=== PATIENT | male | born 1955 | race African-American/Black ===

== ENCOUNTER 2018-03-21 09:52 | Emergency (ER) | payer OTHER ==
[2018-03-21] MEDS ORDERED: ALBUTEROL 2.5 MG/3 ML NEB SOL ONE (10:40)
--- NOTE | 2018-03-21 11:12 | RAD REPORT ---
EXAM DESCRIPTION: RAD - Chest Pa And Lat (2 Views) - 03/21/2018 11:02 am CLINICAL HISTORY: Cough x2 weeks COMPARISON: 10/06/2017, 03/05/2017 FINDINGS: The lungs are mildly emphysematous but clear. The heart is normal in size. No displaced fr actures. Small hiatal hernia. IMPRESSION: Mild COPD.
[2018-03-21] MEDS ORDERED: AZITHROMYCIN 250 MG TAB ONE (12:00)
[2018-03-21] MEDS ORDERED: CEFTRIAXONE 1000 MG/VIAL ONE (12:00)
--- NOTE | 2018-03-21 12:00 | ER ---
Nurse's Notes [facility] Name: Kyaw Gay Jr Age: 62 yrs Sex: Male : 1955 Arrival Date: 03/21/2018 Time: 09:57 Bed 20 Private MD: Wendy Weinstein Diagnosis: Acute upper respiratory infection, unspecified Presentation: 03/21 10:00 Presenting complaint: Patient states: cough for 2 weeks, non-productive. reports la1 intermittent chills. Transition of care: patient was not received from another setting of care. Onset of symptoms was March 21, 2018. Initial Sepsis Screen: Does the patient meet any 2 criteria? No. Patient's initial sepsis screen is negative. Does the patient have a suspected source of infection? No. Patient's initial sepsis screen is negative. Care prior to arrival: None. 10:00 Method Of Arrival: Ambulatory la1 10:00 Acuity: ADOLFO 3 la1 Historical: - Allergies: 10:01 No Known Allergies; la1 - PMHx: 10:01 Cancer; Hepatitis; HIV; Hypertension; la1 - Immunization history:: Adult Immunizations up to date. - Social history:: Smoking status: Patient/guardian denies using tobacco. Screenin:18 Abuse screen: Denies threats or abuse. Nutritional screening: No deficits noted. em Tuberculosis screening: No symptoms or risk factors identified. Fall Risk None identified. Assessment: 10:41 General: Appears in no apparent distress. uncomfortable, Behavior is calm, cooperative, em Reports non productive cough for 2 weeks, denies fever, N/V/D. Pain: Denies pain. Neuro: Level of Consciousness is awake, alert, obeys commands, Oriented to person, place, time, situation. Cardiovascular: Capillary refill < 3 seconds Patient's skin is warm and dry. Respiratory: Airway is patent Respiratory effort is even, unlabored, Respiratory pattern is Breath sounds are clear bilaterally. GI: Abdomen is round. : No signs and/or symptoms were reported regarding the genitourinary system. EENT: No signs and/or symptoms were reported regarding the EENT system. Derm: Skin is intact, Skin is pink, warm \T\ dry. Musculoskeletal: Range of motion: intact in all extremities. 10:55 Reassessment: Patient appears in no apparent distress at this time. No changes from iw previously documented assessment. I agree with above assessment by Hitesh Simpson LVN. 11:00 Reassessment: Patient appears in no apparent distress at this time. Patient and/or em family updated on plan of care and expected duration. Pain level reassessed. Patient is alert, oriented x 3, equal unlabored respirations, skin warm/dry/pink. 12:15 Reassessment: Patient appears in no apparent distress at this time. Patient and/or em family updated on plan of care and expected duration. Pain level reassessed. Patient is alert, oriented x 3, equal unlabored respirations, skin warm/dry/pink. Patient states feeling better. Patient states symptoms have improved. Vital Signs: 10:01 BP 115 / 74; Pulse 89; Resp 20; Temp 98.9(O); Pulse Ox 98% on R/A; Weight 104.33 kg; la1 Height 6 ft. 0 in. (182.88 cm); 11:00 BP 127 / 81; Pulse 77; Resp 20; Pulse Ox 99% on R/A; em 12:15 BP 133 / 84; Pulse 74; Resp 18; Temp 97.9(O); Pulse Ox 96% on R/A; Pain 0/10; em 10:01 Body Mass Index 31.19 (104.33 kg, 182.88 cm) la1 ED Course: 09:57 Patient arrived in ED. mr 09:57 Wendy Weinstein MD is Private Physician. mr 10:01 Triage completed. la1 10:01 Arm band placed on left wrist. la1 10:24 Vitaliy He PA is PHCP. cp 10:24 Vitaliy Travis MD is Attending Physician. cp 10:26 Hitesh Simpson LVN is Primary Nurse. em 10:59 X-ray completed. Patient tolerated procedure well. kp1 11:00 XRAY Chest Pa And Lat (2 Views) In Process Unspecified. EDMS 11:18 No provider procedures requiring assistance completed. em 11:19 Patient has correct armband on for positive identification. Bed in low position. Call em light in reach. Side rails up X2. 12:16 Patient did not have IV access during this emergency room visit. em Administered Medications: 10:40 Drug: Albuterol 2.5 mg Route: Inhalation; em 11:00 Follow up: Response: No adverse reaction em 12:05 Drug: Rocephin (cefTRIAXone) 1 grams Route: IM; Site: left gluteus; em 12:18 Follow up: Response: No adverse reaction em 12:05 Drug: Zithromax 500 mg Route: PO; em 12:18 Follow up: Response: No adverse reaction em Outcome: 12:00 Discharge ordered by . jeffery 12:16 Discharged to home ambulatory. em 12:16 Condition: good 12:16 Discharge instructions given to patient, Instructed on discharge instructions, follow up and referral plans. medication usage, Demonstrated understanding of instructions, follow-up care, medications, Prescriptions given X 4. 12:19 Patient left the ED. em Signatures: Dispatcher [employer] Sylvia Cates, Hitesh, AUTOMOTIVE DETAILER AUTOMOTIVE DETAILER em Karie Garcia RN RN Ezequiel Robles RN RN la1 Vitaliy He, MADONNA PA Crystal Waters kp1
--- NOTE | 2018-03-21 12:00 | EDPHYS ---
Physician Documentation [facility] Name: Kyaw Gay Jr Age: 62 yrs Sex: Male : 1955 Arrival Date: 03/21/2018 Time: 09:57 Bed 20 Private MD: Wendy Weinstein ED Physician Vitaliy Travis HPI: 03/21 10:45 This 62 yrs old Black Male presents to ER via Ambulatory with complaints of Cough. cp 10:45 The patient or guardian reports cough, that is intermittent. Onset: The cp symptoms/episode began/occurred 2 week(s) ago. 10:45 Severity of symptoms: in the emergency department the symptoms are unchanged, despite cp home interventions. 10:45 Associated signs and symptoms: Pertinent positives: sore throat, Pertinent negatives: cp chest pain, diarrhea, ear ache, fever, vomiting. Historical: - Allergies: 10: No Known Allergies; la1 - PMHx: 10:01 Cancer; Hepatitis; HIV; Hypertension; la1 - Immunization history:: Adult Immunizations up to date. - Social history:: Smoking status: Patient/guardian denies using tobacco. ROS: 11:00 Constitutional: Negative for body aches, chills, fever, poor PO intake. cp 11:00 Eyes: Negative for injury, pain, redness, and discharge. cp 11:00 ENT: Positive for sore throat, Negative for drainage from ear(s), ear pain, difficulty cp swallowing, difficulty handling secretions. 11:00 Cardiovascular: Negative for chest pain, edema, palpitations. cp 11:00 Respiratory: Positive for cough, "sounds productive", Negative for shortness of breath, wheezing. 11:00 Abdomen/GI: Negative for abdominal pain, nausea, vomiting, and diarrhea, black/tarry stool, rectal bleeding. 11:00 Back: Negative for radiated pain. 11:00 Neuro: Negative for altered mental status, headache, weakness. 11:00 All other systems are negative. Exam: 11:05 Constitutional: The patient appears in no acute distress, alert, awake, cp non-diaphoretic, non-toxic, well developed, well nourished. 11:05 Head/Face: Normocephalic, atraumatic. cp 11:05 Eyes: Periorbital structures: appear normal, Conjunctiva: normal, no exudate, no cp injection, Sclera: no appreciated abnormality, Lids and lashes: appear normal, bilaterally. 11:05 ENT: External ear(s): are unremarkable, Ear canal(s): are normal, clear, TM's: bulging, is not appreciated, bilaterally, dullness, bilaterally, erythema, is not appreciated, bilaterally, Nose: is normal, Mouth: is normal, Posterior pharynx: Airway: no evidence of obstruction, patent, Tonsils: are normal in appearance, Uvula: midline, swelling, is not appreciated, erythema, that is mild, exudate, is not appreciated. 11:05 Neck: ROM/movement: is normal, is supple, without pain, no range of motions limitations, no meningismus, no nuchal rigidity, Lymph nodes: no appreciated lymphadenopathy. 11:05 Chest/axilla: Inspection: normal, Palpation: is normal, no crepitus, no tenderness. 11:05 Cardiovascular: Rate: normal, Rhythm: regular. 11:05 Respiratory: the patient does not display signs of respiratory distress, Respirations: normal, no use of accessory muscles, no retractions, no splinting, no tachypnea, labored breathing, is not present, Breath sounds: bronchial sounds, that are mild, are heard diffusely, decreased breath sounds, are not appreciated, + upper airway congestion. wheezing: is not appreciated. 11:05 Abdomen/GI: Inspection: abdomen appears normal, Palpation: abdomen is soft and non-tender, in all quadrants. 11:05 Back: pain, is absent, ROM is normal. 11:05 Skin: cellulitis, is not appreciated, no rash present. 11:05 Neuro: Orientation: to person, place \\T\\ time. Mentation: lucid, able to follow commands, Cerebellar function: is grossly normal, Motor: moves all fours, strength is normal, Sensation: no obvious gross deficits. Vital Signs: 10:01 BP 115 / 74; Pulse 89; Resp 20; Temp 98.9(O); Pulse Ox 98% on R/A; Weight 104.33 kg; la1 Height 6 ft. 0 in. (182.88 cm); 11:00 BP 127 / 81; Pulse 77; Resp 20; Pulse Ox 99% on R/A; em 12:15 BP 133 / 84; Pulse 74; Resp 18; Temp 97.9(O); Pulse Ox 96% on R/A; Pain 0/10; em 10:01 Body Mass Index 31.19 (104.33 kg, 182.88 cm) la1 MDM: 10:24 Patient medically screened. cp 11:00 Differential Diagnosis: Bronchitis Influenza Sinusitis Pharyngitis Otitis Media cp Pneumonia. 11:55 Data reviewed: vital signs, nurses notes, lab test result(s), radiologic studies, plain cp films. 11:55 Test interpretation: by ED physician or midlevel provider: plain radiologic studies. cp Counseling: I had a detailed discussion with the patient and/or guardian regarding: the historical points, exam findings, and any diagnostic results supporting the discharge/admit diagnosis, lab results, radiology results, the need for outpatient follow up, a family practitioner, to return to the emergency department if symptoms worsen or persist or if there are any questions or concerns that arise at home. 03/21 10:37 Order name: Influenza Screen (a \\T\\ B); Complete Time: 11:46 03/21 11:47 Interpretation: Reviewed. 03/21 10:37 Order name: Strep; Complete Time: 11:46 03/21 11:47 Interpretation: Reviewed. 03/21 10:37 Order name: XRAY Chest Pa And Lat (2 Views); Complete Time: 11:24 03/21 11:24 Interpretation: Report reviewed. 03/21 11:28 Order name: Throat Culture EDMS Administered Medications: 10:40 Drug: Albuterol 2.5 mg Route: Inhalation; em 11:00 Follow up: Response: No adverse reaction em 12:05 Drug: Rocephin (cefTRIAXone) 1 grams Route: IM; Site: left gluteus; em 12:18 Follow up: Response: No adverse reaction em 12:05 Drug: Zithromax 500 mg Route: PO; em 12:18 Follow up: Response: No adverse reaction em Disposition: 03/21/18 12:00 Discharged to Home. Impression: Acute upper respiratory infection, unspecified. - Condition is Stable. - Discharge Instructions: Upper Respiratory Infection, Adult. - Prescriptions for Tessalon Perles 100 mg Oral Capsule - take 1 capsule by ORAL route every 8 hours As needed; 15 capsule. Zithromax Z- Dk 250 mg Oral Tablet - take 1 tablet by ORAL route as directed for 5 days Day 1 - take two (2) tablets one time. Day 2, 3, 4 , 5 take one (1) tablet once daily.; 6 tablet. Prednisone 20 mg Oral Tablet - take 2 tablet by ORAL route once daily for 5 days; 10 tablet. Albuterol Sulfate 90 mcg/actuation - inhale 1-2 puff by INHALATION route every 4-6 hours; 1 Inhaler. - Medication Reconciliation Form, Thank You Letter, Antibiotic Education, Prescription Opioid Use form. - Follow up: Private Physician; When: 2 - 3 days; Reason: Recheck today's complaints. - Problem is new. - Symptoms have improved. Addendum: 03/23/2018 08:52 Co-signature as Attending Physician, Vitaliy Travis MD I agree with the assessment and c yang plan of care. Signatures: Dispatcher [employer] Vitaliy Cuellar MD MD cha Munoz, Edgar, SALES AND SERVICE CHANGE LEADER SALES AND SERVICE CHANGE LEADER Ezequiel Charles RN RN la1 Vitaliy He, PA PA cp Corrections: (The following items were deleted from the chart) 03/22 09:23 09:18 ENT: Positive for sore throat, Negative for drainage from ear(s), ear pain, cp difficulty swallowing, difficulty handling secretions, cp 09: 09:18 Cardiovascular: Negative for chest pain, edema, palpitations, cp cp 09: 09:18 Neck: Negative for pain with movement, pain at rest, stiffness, tenderness, cp cp 09:23 09:18 Respiratory: Positive for cough, "sounds productive", Negative for wheezing, cp cp 09:23 09:18 Abdomen/GI: Negative for abdominal pain, nausea, vomiting, and diarrhea, cp black/tarry stool, rectal bleeding, cp 09:23 09:18 Back: Negative for pain at rest, pain with movement, radiated pain, cp cp 09:23 09:18 Skin: Negative for cellulitis, rash, cp cp :23 09:18 Neuro: Negative for altered mental status, headache, weakness, cp cp : 09:18 All other systems are negative, cp cp
[2018-03-21 12:25] VITALS: BP 133/84; TEMP 97.9; O2SAT 96
== END 2018-03-21 12:19 | disposition home or self-care (01) ==
LOC: ER 09:52
DX: J06.9 Acute upper respiratory infection, unspecified (principal); I10 Essential (primary) hypertension; Z21 Asymptomatic human immunodeficiency virus [HIV] infection status
CPT/HCPCS: 71046; 87070; 87081; 87804; 96372; 99284

== ENCOUNTER 2019-03-27 09:06 | Emergency (ER) | payer OTHER ==
[2019-03-27 09:56] LABS: Absolute Lymphocytes (CBC) 0.8 K/uL (0.7-4.9); Absolute Monocytes 0.5 K/uL (0.1-1.3); Absolute Neutrophil 3.3 K/uL (1.8-8.0); Basophils % 0.4 % (0-1.3); Eosinophils % 1.2 % (0-4.4); Hematocrit 37.7 % (39.6-49.0); Lymphocytes % 17.3 % (15.3-44.8); Monocytes % 10.8 % (3.3-12.3); Protime INR 1.09; RBC Red Blood Cell Count 4.17 M/uL (4.33-5.43)
[2019-03-27 10:02] LABS: ALT/SGPT 24 U/L (12-78); AST/SGOT 18 U/L (15-37); Albumin 3.5 g/dL (3.4-5.0); Alkaline Phosphatase 98 U/L (45-117); BUN Blood Urea Nitrogen 19 mg/dL (7-18); Bicarbonate 27 mmol/L (21-32); Bilirubin Total 0.3 mg/dL (0.2-1.0); Glucose Level 94 mg/dL (74-106); Magnesium 2.5 mg/dL (1.8-2.4); NT PRO-BNP 93 pg/mL (<125); Potassium 4.6 mmol/L (3.5-5.1); Protein, Total 9.1 g/dL (6.4-8.2); Sodium Level 144 mmol/L (136-145); Troponin (Emerg Dept Use Only) < 0.02 ng/mL (0.0-0.045)
--- NOTE | 2019-03-27 10:16 | RAD REPORT ---
EXAM DESCRIPTION: Perez Single View03/27/2019 9:45 am CLINICAL HISTORY: Chest pain COMPARISON: February 2018 FINDINGS: Left base is hazy. Right lung appears clear. Heart is normal size IMPRESSION: Left base is hazy suspicious for pneumonia
--- NOTE | 2019-03-27 11:06 | ER ---
Nurse's Notes [facility] Name: Kyaw Gay Jr Age: 63 yrs Sex: Male : 1955 Arrival Date: 03/27/2019 Time: 09:08 Bed 13 Private MD: None, None Diagnosis: Pneumonia due to other infectious organisms, not elsewhere classified;Other chest pain Presentation: 03/27 09:12 Presenting complaint: Patient states: chest pain, cough, and abd pain that began 2 days aa5 ago. Pt denies nausea/vomiting/diarrhea. 09:12 Transition of care: patient was not received from another setting of care. Onset of aa5 symptoms was March 2019. Risk Assessment: Do you want to hurt yourself or someone else? Patient reports no desire to harm self or others. Initial Sepsis Screen: Does the patient meet any 2 criteria? No. Patient's initial sepsis screen is negative. Does the patient have a suspected source of infection? No. Patient's initial sepsis screen is negative. Care prior to arrival: None. 09:12 Method Of Arrival: Ambulatory aa5 09:12 Acuity: ADOLFO 3 aa5 Historical: - Allergies: 09:12 No Known Allergies; aa5 - PMHx: 09:12 Cancer; Hepatitis; HIV; Hypertension; aa5 - Immunization history:: Adult Immunizations up to date. - Social history:: Smoking status: Patient/guardian denies using tobacco. - Ebola Screening: : No symptoms or risks identified at this time. Screenin:15 Abuse screen: Denies threats or abuse. Nutritional screening: No deficits noted. rb1 Tuberculosis screening: No symptoms or risk factors identified. Fall Risk None identified. Assessment: 09:15 General: Appears in no apparent distress. comfortable, Behavior is calm, cooperative, rb1 Denies fever. Pain: Complains of pain in mid-sternal area and abdomen Pain radiates to left arm Pain currently is 4 out of 10 on a pain scale. Pain began x 2 days. Neuro: Level of Consciousness is awake, alert, obeys commands, Oriented to person, place, time, situation. Cardiovascular: Capillary refill < 3 seconds is brisk in bilateral fingers. Respiratory: Airway is patent Respiratory effort is even, unlabored, Respiratory pattern is regular, symmetrical. GI: No signs and/or symptoms were reported involving the gastrointestinal system. : No signs and/or symptoms were reported regarding the genitourinary system. Derm: Skin is dry, Skin is normal, Skin temperature is warm. 10:15 Reassessment: Patient appears in no apparent distress at this time. Patient and/or rb1 family updated on plan of care and expected duration. Pain level reassessed. Patient is alert, oriented x 3, equal unlabored respirations, skin warm/dry/pink. 11:13 Reassessment: Patient appears in no apparent distress at this time. No changes from rb1 previously documented assessment. Vital Signs: 09:15 BP 135 / 84; Pulse 97; Resp 18 S; Temp 98.0; Pulse Ox 98% on R/A; aa5 10:15 BP 127 / 64; Pulse 86; Resp 24; Temp 98.1(TE); Pulse Ox 98% on R/A; Pain 6/10; rb1 11:12 BP 142 / 87; Pulse 80; Resp 16; Temp 98.3(O); Pulse Ox 97% on R/A; Pain 2/10; rb1 ED Course: 09:08 Patient arrived in ED. mr 09:09 None, None is Private Physician. mr 09:12 Arm band placed on Patient placed in an exam room, on a stretcher. aa5 09:14 Devante Wren MD is Attending Physician. ps1 09:15 Patient has correct armband on for positive identification. Placed in gown. Bed in low rb1 position. Call light in reach. Side rails up X 1. desk monitor on. Pulse ox on. NIBP on. Warm blanket given. 09:15 Patient maintains SpO2 saturation greater than 95% on room air. rb1 09:19 Triage completed. aa5 09:21 Tita Jade, RN is Primary Nurse. rb1 09:27 EKG done, by ED staff, reviewed by Devante Wren MD. dh3 09:30 Inserted saline lock: 22 gauge in right antecubital area, using aseptic technique. rb1 Blood collected. 09:45 XRAY Chest (1 view) In Process Unspecified. EDMS 10:02 Notified ED physician of a critical lab result(s). D Dimer 595. sg 11:14 No provider procedures requiring assistance completed. IV discontinued, intact, rb1 bleeding controlled, No redness/swelling at site. Pressure dressing applied. Administered Medications: No medications were administered Outcome: 11:05 Discharge ordered by . ps1 11:14 Discharged to home ambulatory, with friend. rb1 11:14 Condition: stable 11:14 Discharge instructions given to patient, Instructed on discharge instructions, follow up and referral plans. medication usage, Demonstrated understanding of instructions, follow-up care, medications, Prescriptions given X 2. 11:15 Patient left the ED. rb1 Signatures: Dispatcher [employer] EDMS Jarad Tatum RN RN Agnieszka Redd mr OconnorSun guerra RN RN aa5 Tita Jade RN RN rb1 Jc, Cornelia 3 Devante Wren MD MD ps1
--- NOTE | 2019-03-27 11:06 | EDPHYS ---
Physician Documentation [facility] Name: Kyaw Gay Jr Age: 63 yrs Sex: Male : 1955 Arrival Date: 03/27/2019 Time: 09:08 Bed 13 Private MD: None, None ED Physician Devante Wren HPI: 03/27 09:23 This 63 yrs old Black Male presents to ER via Ambulatory with complaints of Chest Pain, ps1 Cough, Abdominal Pain, Leg Pain. 09:23 Patient hx of HIV on immunosuppressant therapy. Evaluated by ID doctor a month ago and ps1 reportedly everything ok. Was seen for URI a couple of weeks ago and had prescription for anti-tussive and zpack. States that he has chest pain that started 2 days ago and worsening. Describes the pain as pins and needles and radiates from left chest to LLQ abdomen. Pain appears to be mild and patient in no distress. . Historical: - Allergies: 09:12 No Known Allergies; aa5 - PMHx: 09:12 Cancer; Hepatitis; HIV; Hypertension; aa5 - Immunization history:: Adult Immunizations up to date. - Social history:: Smoking status: Patient/guardian denies using tobacco. - Ebola Screening: : No symptoms or risks identified at this time. ROS: 09:23 Constitutional: Negative for fever, chills, and weight loss, Eyes: Negative for injury, ps1 pain, redness, and discharge, ENT: Negative for injury, pain, and discharge, Abdomen/GI: Negative for abdominal pain, nausea, vomiting, diarrhea, and constipation, Back: Negative for injury and pain, MS/Extremity: Negative for injury and deformity, Skin: Negative for injury, rash, and discoloration, Neuro: Negative for headache, weakness, numbness, tingling, and seizure. 09:23 Cardiovascular: Positive for chest pain, with cough. 09:23 Respiratory: Positive for cough. Exam: 09:23 Constitutional: This is a well developed, well nourished patient who is awake, alert, ps1 and in no acute distress. Head/Face: Normocephalic, atraumatic. Eyes: Pupils equal round and reactive to light, extra-ocular motions intact. Lids and lashes normal. Conjunctiva and sclera are non-icteric and not injected. Chest/axilla: Normal chest wall appearance and motion. Nontender with no deformity. No lesions are appreciated. Skin: Warm, dry with normal turgor. Normal color with no rashes, no lesions, and no evidence of cellulitis. MS/ Extremity: Pulses equal, no cyanosis. Neurovascular intact. Full, normal range of motion. Neuro: Awake and alert, GCS 15, oriented to person, place, time, and situation. Cranial nerves II-XII grossly intact. Sensory grossly intact. 09:23 Respiratory: Lungs have equal breath sounds bilaterally, clear to auscultation and percussion. No rales, rhonchi or wheezes noted. No increased work of breathing, no retractions or nasal flaring. 09:23 Cardiovascular: Rate: normal, Rhythm: regular, Pulses: no pulse deficits are appreciated. Vital Signs: 09:15 BP 135 / 84; Pulse 97; Resp 18 S; Temp 98.0; Pulse Ox 98% on R/A; aa5 10:15 BP 127 / 64; Pulse 86; Resp 24; Temp 98.1(TE); Pulse Ox 98% on R/A; Pain 6/10; rb1 11:12 BP 142 / 87; Pulse 80; Resp 16; Temp 98.3(O); Pulse Ox 97% on R/A; Pain 2/10; rb1 MDM: 09:27 Patient medically screened. ps1 10:59 Data reviewed: vital signs, nurses notes, lab test result(s), radiologic studies, ps1 ddimer is normal for age. CXR suspect for PNA. Will treat with levaquin. . 03/27 09:21 Order name: CBC with Diff; Complete Time: 10:05 ps1 03/27 09:21 Order name: Magnesium; Complete Time: 10:59 ps1 03/27 09:21 Order name: NT PRO-BNP; Complete Time: 10:59 ps1 03/27 09:21 Order name: PT-INR; Complete Time: 10: ps1 03/27 09:21 Order name: Troponin (emerg Dept Use Only); Complete Time: 10:59 ps1 03/27 09:21 Order name: CMP; Complete Time: 10:59 ps1 03/27 09:21 Order name: XRAY Chest (1 view); Complete Time: 10:59 ps1 03/27 09:21 Order name: EKG; Complete Time: 09:22 ps1 03/27 09:21 Order name: Cardiac monitoring; Complete Time: :38 ps1 03/27 09:21 Order name: EKG - Nurse/Tech; Complete Time: : [facility] 03/27 09:21 Order name: IV Saline Lock; Complete Time: : ps1 03/27 09:21 Order name: Labs collected and sent; Complete Time: :38 ps1 03/27 09:39 Order name: D-Dimer; Complete Time: 10:05 [facility] 03/27 09:21 Order name: O2 Per Protocol; Complete Time: : ps1 03/27 09:21 Order name: O2 Sat Monitoring; Complete Time: : ps1 Administered Medications: No medications were administered Disposition: 03/27/19 11:05 Discharged to Home. Impression: Pneumonia due to other infectious organisms, not elsewhere classified, Other chest pain. - Condition is Stable. - Discharge Instructions: Community-Acquired Pneumonia, Adult. - Prescriptions for Levaquin 750 mg Oral Tablet - take 1 tablet by ORAL route once daily for 10 days; 10 tablet. Tessalon Perles 100 mg Oral Capsule - take 1 capsule by ORAL route every 8 hours As needed; 15 capsule. - Medication Reconciliation Form, Thank You Letter, Antibiotic Education, Prescription Opioid Use form. - Follow up: Private Physician; When: As needed; Reason: Recheck today's complaints, Continuance of care, Re-evaluation by your physician. Follow up: Emergency Department; When: As needed; Reason: Fever > 102 F, Trouble breathing, Worsening of condition. - Problem is new. - Symptoms are unchanged. Signatures: Dispatcher [facility] Sun Oconnor RN RN aa5 Tita Jade, RN RN rb1 Devante Wren MD MD ps1 Corrections: (The following items were deleted from the chart) 09:39 09:28 D-DIMER+[id number].BRZ ordered. [facility] 11:15 11:05 03/27/2019 11:05 Discharged to Home. Impression: Pneumonia due to other rb1 infectious organisms, not elsewhere classified; Other chest pain. Condition is Stable. Forms are Medication Reconciliation Form, Thank You Letter, Antibiotic Education, Prescription Opioid Use. Follow up: Private Physician; When: As needed; Reason: Recheck today's complaints, Continuance of care, Re-evaluation by your physician. Follow up: Emergency Department; When: As needed; Reason: Fever > 102 F, Trouble breathing, Worsening of condition. Problem is new. Symptoms are unchanged. ps1
[2019-03-27 11:22] VITALS: BP 142/87; TEMP 98.3; O2SAT 97
--- NOTE | 2019-03-27 12:42 | EKG ---
Test Date: 2019-03-27 Test Time: 09:27:19 Digital Assistant: KAJAL MEASUREMENT RESULTS: Intervals: Rate: 90 VA: 168 QRSD: 94 QT: 350 QTc: 428 [place]: P: 59 VA: 168 QRS: 11 T: 235 INTERPRETIVE STATEMENTS: Normal sinus rhythm ST & T wave abnormality, consider inferolateral ischemia Abnormal ECG Compared to ECG 03/03/2017 17:46:33 Sinus tachycardia no longer present Left ventricular hypertrophy no longer present ST (T wave) deviation still present Possible ischemia still present Electronically Signed On 03-27-19 12:42:15 CDT by Luca Cruz
== END 2019-03-27 11:15 | disposition home or self-care (01) ==
LOC: ER 09:06
DX: J16.8 Pneumonia due to other specified infectious organisms (principal); B20 Human immunodeficiency virus [HIV] disease; C80.1 Malignant (primary) neoplasm, unspecified; I10 Essential (primary) hypertension; Z79.899 Other long term (current) drug therapy
CPT/HCPCS: 36415; 71045; 80053; 83735; 83880; 84484; 85025; 85379; 85610; 93005; 99285

== ENCOUNTER 2019-03-28 18:34 | Emergency (ER) | payer OTHER ==
[2019-03-28 19:32] LABS: Absolute Lymphocytes (CBC) 0.9 K/uL (0.7-4.9); Absolute Monocytes 0.6 K/uL (0.1-1.3); Absolute Neutrophil 4.2 K/uL (1.8-8.0); Basophils % 0.6 % (0-1.3); Hematocrit 36.4 % (39.6-49.0); MPV 8.6 fL (7.6-11.3); Monocytes % 9.8 % (3.3-12.3); RBC Red Blood Cell Count 4.01 M/uL (4.33-5.43)
[2019-03-28] MEDS ORDERED: MORPHINE 4 MG/ML SYR ONE (19:40)
[2019-03-28] MEDS ORDERED: NA CHLORIDE 0.9% 1,000 ML ONE (19:40)
[2019-03-28] MEDS ORDERED: ONDANSETRON 4 MG/2 ML VIAL ONE (19:40)
[2019-03-28 19:47] LABS: ALT/SGPT 21 U/L (12-78); AST/SGOT 18 U/L (15-37); Albumin 3.3 g/dL (3.4-5.0); Alkaline Phosphatase 95 U/L (45-117); BUN Blood Urea Nitrogen 18 mg/dL (7-18); Bicarbonate 26 mmol/L (21-32); Bilirubin Direct < 0.1 mg/dL (0-0.2); Bilirubin Total 0.3 mg/dL (0.2-1.0); Glucose Level 102 mg/dL (74-106); Lipase 154 U/L (73-393); Potassium 4.1 mmol/L (3.5-5.1); Protein, Total 8.8 g/dL (6.4-8.2); Sodium Level 140 mmol/L (136-145)
--- NOTE | 2019-03-28 23:14 | EDPHYS ---
Physician Documentation [facility] Name: Kyaw Gay Jr Age: 63 yrs Sex: Male : 1955 Arrival Date: 03/28/2019 Time: 18:35 Bed 25 Private MD: ED Physician Sam Roland HPI: 03/28 19:27 This 63 yrs old Black Male presents to ER via Ambulatory with complaints of Abdominal rn Pain. 19:27 The patient presents with abdominal pain. Onset: The symptoms/episode began/occurred rn yesterday. 19:43 The symptoms do not radiate. Associated signs and symptoms: none. Pertinent negatives: rn nausea and vomiting, anorexia, blood in stools, constipation, diarrhea, dysuria, fever, testicular pain, vomiting, vomiting blood. Modifying factors: The symptoms are alleviated by nothing, the symptoms are aggravated by touching the area. Severity of pain: At its worst the pain was moderate in the emergency department the pain is unchanged. The patient has not experienced similar symptoms in the past. The patient has been recently seen by a physician: The patient has been recently seen at the [facility] Emergency Department. 19:43 REports seen here yesterday, diagnosed with pneumonia, abd pain was not addressed per rn patient.. Historical: - Allergies: 18:57 No Known Allergies; aj1 - Home Meds: 18:57 blood pressure medicine [Active]; aj1 - PMHx: 18:57 Cancer; Hepatitis; HIV; Hypertension; aj1 - Immunization history:: Flu vaccine is up to date. - Social history:: Smoking status: Patient/guardian denies using tobacco. - Ebola Screening: : Patient denies travel to an Ebola-affected area in the 21 days before illness onset. - Family history:: not pertinent. - Hospitalizations: : No recent hospitalization is reported. ROS: 19:43 Constitutional: Negative for fever, chills, and weight loss, Eyes: Negative for injury, rn pain, redness, and discharge, Cardiovascular: Negative for chest pain, palpitations, and edema, Respiratory: Negative for wheezing, and pleuritic chest pain, Abdomen/GI: Negative for nausea, vomiting, diarrhea, and constipation, MS/Extremity: Negative for injury and deformity, Skin: Negative for injury, rash, and discoloration, Neuro: Negative for headache, weakness, numbness, tingling, and seizure. Exam: 19:43 Constitutional: This is a well developed, well nourished patient who is awake, alert, rn and in no acute distress. Head/Face: Normocephalic, atraumatic. ENT: MMM Respiratory: No increased work of breathing, no retractions or nasal flaring. Abdomen/GI: soft, mild LLQ and LUQ tenderness Skin: Warm, dry MS/ Extremity: Pulses equal, no cyanosis. Neurovascular intact. Full, normal range of motion. Equal circumference. Neuro: Awake and alert, GCS 15, oriented to person, place, time, and situation. Cranial nerves II-XII grossly intact. Motor strength 5/5 in all extremities. Sensory grossly intact. Vital Signs: 18:57 BP 130 / 77; Pulse 80; Resp 18; Temp 98.3; Pulse Ox 97% on R/A; Weight 111.13 kg (R); aj1 Height 6 ft. 0 in. (182.88 cm) (R); Pain 9/10; 21:53 BP 125 / 71; Pulse 71; Resp 16; Pulse Ox 98% on R/A; la1 23:25 BP 134 / 74; Pulse 74; Resp 16; Temp 97.3; Pulse Ox 98% on R/A; la1 18:57 Body Mass Index 33.23 (111.13 kg, 182.88 cm) aj1 MDM: 19:03 Patient medically screened. rn 23:11 Differential diagnosis: gastritis, gastroesophageal reflux disease, non-specific abd rn pain, pancreatitis. Data reviewed: vital signs, nurses notes, old medical records, lab test result(s), radiologic studies, CT scan, and as a result, I will discharge patient. Counseling: I had a detailed discussion with the patient and/or guardian regarding: the historical points, exam findings, and any diagnostic results supporting the discharge/admit diagnosis, lab results, radiology results, the need for outpatient follow up, to return to the emergency department if symptoms worsen or persist or if there are any questions or concerns that arise at home. Response to treatment: the patient's symptoms have markedly improved after treatment, and as a result, I will discharge patient. Special discussion: Based on the history and exam findings, there is no indication for further emergent testing or inpatient evaluation. I discussed with the patient/guardian the need to see the primary care provider for further evaluation of the symptoms. ED course: Pt improved after bowel movement. . 23:13 ED course: Already on oral abx for pneumonia. rn 03/28 19:18 Order name: Basic Metabolic Panel; Complete Time: 19:58 rn 03/28 19:18 Order name: CBC with Diff; Complete Time: 19:58 rn 03/28 19:18 Order name: Hepatic Function; Complete Time: 19:58 rn 03/28 19:18 Order name: Lipase; Complete Time: 19:58 rn 03/28 19:18 Order name: CT Abd/Pelvis - W/Contrast rn 03/28 19:18 Order name: IV Saline Lock; Complete Time: 19:36 rn 03/28 19:18 Order name: Labs collected and sent; Complete Time: 19:36 rn Administered Medications: 19:33 Drug: NS 0.9% 500 ml Route: IV; Rate: bolus; Site: left antecubital; la1 19:48 Follow up: IV Status: Completed infusion la1 19:34 Drug: morphine 4 mg Route: IVP; Site: left antecubital; la1 19:48 Follow up: Response: No adverse reaction; Pain is decreased la1 19:34 Drug: Zofran 4 mg Route: IVP; Site: left antecubital; la1 19:48 Follow up: Response: No adverse reaction la1 Disposition: 03/28/19 23:13 Discharged to Home. Impression: Unspecified abdominal pain, Pneumonia. - Condition is Stable. - Discharge Instructions: Abdominal Pain, Adult, Community-Acquired Pneumonia, Adult. - Medication Reconciliation Form, Thank You Letter, Antibiotic Education, Prescription Opioid Use form. - Follow up: Private Physician; When: As needed; Reason: Recheck today's complaints, Re-evaluation by your physician. - Problem is new. - Symptoms have improved. Signatures: Dispatcher [employer] EDMS Angelita Huizar RN RN aj1 Sam Roland MD MD rn Attema, Lee, RN RN la1 Corrections: (The following items were deleted from the chart) 19:44 19:43 Constitutional: Negative for fever, chills, and weight loss, Eyes: Negative for rn injury, pain, redness, and discharge, Cardiovascular: Negative for chest pain, palpitations, and edema, Respiratory: Negative for shortness of breath, cough, wheezing, and pleuritic chest pain, Abdomen/GI: Negative for nausea, vomiting, diarrhea, and constipation, MS/Extremity: Negative for injury and deformity, Skin: Negative for injury, rash, and discoloration, Neuro: Negative for headache, weakness, numbness, tingling, and seizure, rn 23:26 23:13 03/28/2019 23:13 Discharged to Home. Impression: Unspecified abdominal pain; la1 Pneumonia. Condition is Stable. Forms are Medication Reconciliation Form, Thank You Letter, Antibiotic Education, Prescription Opioid Use. Follow up: Private Physician; When: As needed; Reason: Recheck today's complaints, Re-evaluation by your physician. Problem is new. Symptoms have improved. rn
--- NOTE | 2019-03-28 23:14 | ER ---
Nurse's Notes [facility] Name: Kyaw Gay Jr Age: 63 yrs Sex: Male : 1955 Arrival Date: 03/28/2019 Time: 18:35 Bed 25 Private MD: Diagnosis: Unspecified abdominal pain;Pneumonia Presentation: 03/28 18:55 Presenting complaint: Patient states: "My whole left side is killing me" Reports that aj1 he has been having this pain since yesterday. States that he was seen here yesterday and diagnosed with pneumonia, patient reports that his cough and shortness of breath is better but he is still having pain. Reports pain to LUQ, LLQ, left hjp, and left leg. Transition of care: patient was not received from another setting of care. Onset of symptoms was March 27, 2018. Risk Assessment: Do you want to hurt yourself or someone else? Patient reports no desire to harm self or others. Initial Sepsis Screen: Does the patient meet any 2 criteria? No. Patient's initial sepsis screen is negative. Does the patient have a suspected source of infection? No. Patient's initial sepsis screen is negative. Care prior to arrival: None. 18:55 Method Of Arrival: Ambulatory aj1 18:55 Acuity: ADOLFO 3 aj1 Triage Assessment: 18:57 General: Appears in no apparent distress. uncomfortable, Behavior is cooperative, aj1 restless. Pain: Complains of pain in anterior aspect of left lateral abdomen, left hip and left leg. Neuro: Level of Consciousness is awake, alert, obeys commands, Oriented to person, place, time, situation. Cardiovascular: Patient's skin is warm and dry. Respiratory: Airway is patent Respiratory effort is even, unlabored, Respiratory pattern is regular, symmetrical. GI: Patient currently denies diarrhea, nausea, vomiting. Historical: - Allergies: 18:57 No Known Allergies; aj1 - Home Meds: 18:57 blood pressure medicine [Active]; aj1 - PMHx: 18:57 Cancer; Hepatitis; HIV; Hypertension; aj1 - Immunization history:: Flu vaccine is up to date. - Social history:: Smoking status: Patient/guardian denies using tobacco. - Ebola Screening: : Patient denies travel to an Ebola-affected area in the 21 days before illness onset. - Family history:: not pertinent. - Hospitalizations: : No recent hospitalization is reported. Screenin:35 Abuse screen: Denies threats or abuse. Nutritional screening: No deficits noted. la1 Tuberculosis screening: No symptoms or risk factors identified. Fall Risk None identified. Assessment: 19:34 General: Appears in no apparent distress. Behavior is calm, cooperative. Pain: la1 Complains of pain in anterior aspect of left lateral abdomen. Neuro: Level of Consciousness is awake, alert, obeys commands, Oriented to person, place, time, situation. Cardiovascular: Capillary refill < 3 seconds Patient's skin is warm and dry. Respiratory: Airway is patent Respiratory effort is even, unlabored, Respiratory pattern is regular, symmetrical. GI: Abdomen is non-distended, obese, Bowel sounds present X 4 quads. Abd is soft X 4 quads Abdomen is tender to palpation in left lower quadrant. GI:. : No signs and/or symptoms were reported regarding the genitourinary system. 20:53 Reassessment: Patient appears in no apparent distress at this time. No changes from la1 previously documented assessment. Patient and/or family updated on plan of care and expected duration. Pain level reassessed. Patient is alert, oriented x 3, equal unlabored respirations, skin warm/dry/pink. 23:02 Reassessment: Patient appears in no apparent distress at this time. No changes from la1 previously documented assessment. Patient and/or family updated on plan of care and expected duration. Pain level reassessed. Patient is alert, oriented x 3, equal unlabored respirations, skin warm/dry/pink. Vital Signs: 18:57 BP 130 / 77; Pulse 80; Resp 18; Temp 98.3; Pulse Ox 97% on R/A; Weight 111.13 kg (R); aj1 Height 6 ft. 0 in. (182.88 cm) (R); Pain 9/10; 21:53 BP 125 / 71; Pulse 71; Resp 16; Pulse Ox 98% on R/A; la1 23:25 BP 134 / 74; Pulse 74; Resp 16; Temp 97.3; Pulse Ox 98% on R/A; la1 18:57 Body Mass Index 33.23 (111.13 kg, 182.88 cm) aj1 ED Course: 18:35 Patient arrived in ED. as 18:57 Triage completed. aj1 18:57 Arm band placed on Patient placed in an exam room. aj1 19:03 Sam Roland MD is Attending Physician. rn 19:03 Ezequiel Gordillo RN is Primary Nurse. la1 19:35 Bed in low position. Call light in reach. la1 19:35 Inserted saline lock: 20 gauge in left antecubital area, using aseptic technique. Blood la1 collected. 23:25 No provider procedures requiring assistance completed. IV discontinued, intact, la1 bleeding controlled, No redness/swelling at site. Pressure dressing applied. 03/29 06:20 CT Abd/Pelvis - W/Contrast In Process Unspecified. EDMS Administered Medications: 03/28 19:33 Drug: NS 0.9% 500 ml Route: IV; Rate: bolus; Site: left antecubital; la1 19:48 Follow up: IV Status: Completed infusion la1 19:34 Drug: morphine 4 mg Route: IVP; Site: left antecubital; la1 19:48 Follow up: Response: No adverse reaction; Pain is decreased la1 19:34 Drug: Zofran 4 mg Route: IVP; Site: left antecubital; la1 19:48 Follow up: Response: No adverse reaction la1 Outcome: 23:13 Discharge ordered by . rn 23:25 Discharged to home ambulatory. la1 23:25 Condition: stable 23:25 Discharge instructions given to patient, Instructed on discharge instructions, follow up and referral plans. medication usage, Demonstrated understanding of instructions, follow-up care, medications. 23:26 Patient left the ED. la1 Signatures: Dispatcher [employer] EDMS Angelita Huizar RN RN aj1 Dior Orr Roman, MD MD rn Attema, Lee, RN RN la1
[2019-03-28 23:38] VITALS: O2SAT 98
[2019-03-28 23:39] VITALS: BP 134/74; TEMP 97.3
--- NOTE | 2019-03-29 11:09 | RAD REPORT ---
EXAM DESCRIPTION: CT Abdomen Pelvis W Contrast CLINICAL HISTORY: 63 years Male ABD PAIN TECHNIQUE: Contiguous axial images obtained through the abdomen and pelvis following the administrat ion of IV contrast. Oral contrast also administered. Coronal and sagittal reformatted images provid ed. This CT exam was performed according to our departmental dose-optimization program, which includes on e or more of the following dose reduction techniques: automated exposure control, adjustment of the m A and/or kV according to patient size, and/or use of iterative reconstruction technique. COMPARISON: Comparison is made to the prior examination dated 03/03/2017. FINDINGS: There is a small left lateral basilar airspace infiltrate.. There are new clustered centri lobular nodules in both lower lobes, consistent with bronchiolitis. No layering pleural fluid. Mild hepatosplenomegaly without focal lesion. Subcentimeter left renal cyst. The kidneys are otherwis e normal without hydronephrosis or pyelonephritis. The biliary tree, gallbladder, pancreas, spleen, a drenal glands, and urinary bladder are normal. Scattered sigmoid diverticuli. There is no bowel inflammation, obstruction, free intraperitoneal air, or ascites. The appendix is not identified and may be surgically absent. No inflammatory changes in its expected location. Chronic degenerative changes in the spine and both hips without acute fracture. Fusion of both sacroi liac joints. IMPRESSION: Small left lower lobe pneumonia. Bronchiolitis in both lung bases, likely infectious. No acute findings in the abdomen or pelvis. Mild hepatosplenomegaly. Electronically signed by: Dominga Buitrago MD 03/28/2019 10:21 PM CDT Due to temporary technical issues with the PACS/Fluency reporting system, reports are being signed by the in house radiologist as a courtesy to ensure prompt reporting. The interpreting radiologist is fully responsible for the content of the report.
== END 2019-03-28 23:26 | disposition home or self-care (01) ==
LOC: ER 18:34
DX: J18.9 Pneumonia, unspecified organism (principal); I10 Essential (primary) hypertension; B20 Human immunodeficiency virus [HIV] disease
CPT/HCPCS: 85025; 80048; 36415; 80076; 83690; 74177; Q9967; J7030; J2405; 96374; 96375; 99284

== ENCOUNTER 2019-12-30 05:27 | Emergency (ER) | payer OTHER ==
[2019-12-30 05:54] LABS: Absolute Lymphocytes (CBC) 0.8 K/uL (0.7-4.9); Basophils % 0.4 % (0-1.3); Hematocrit 37.2 % (39.6-49.0); Lymphocytes % 11.7 % (15.3-44.8); MPV 9.1 fL (7.6-11.3)
[2019-12-30 05:56] LABS: Protime INR 1.12
[2019-12-30 06:11] LABS: ALT/SGPT 26 U/L (12-78); AST/SGOT 20 U/L (15-37); Albumin 3.6 g/dL (3.4-5.0); Alkaline Phosphatase 103 U/L (45-117); BUN Blood Urea Nitrogen 17 mg/dL (7-18); Bicarbonate 24 mmol/L (21-32); Bilirubin Direct 0.1 mg/dL (0-0.2); Bilirubin Total 0.5 mg/dL (0.2-1.0); Glucose Level 104 mg/dL (74-106); Magnesium 2.3 mg/dL (1.8-2.4); NT PRO-BNP 61 pg/mL (<125); Potassium 4.4 mmol/L (3.5-5.1); Protein, Total 8.2 g/dL (6.4-8.2); Sodium Level 138 mmol/L (136-145); Troponin (Emerg Dept Use Only) < 0.02 ng/mL (0.0-0.045)
[2019-12-30] MEDS ORDERED: FENTANYL CITR 100 MCG/2 ML ONE (06:28)
--- NOTE | 2019-12-30 07:52 | RAD REPORT ---
EXAM DESCRIPTION: Perez Single View12/30/2019 6:05 am CLINICAL HISTORY: Chest pain COMPARISON: March 2019 FINDINGS: The lungs appear clear of acute infiltrate. The heart is borderline enlarged IMPRESSION: No acute abnormalities displayed
[2019-12-30] MEDS ORDERED: DICYCLOMINE HCL 10 MG CAP ONE (08:04)
[2019-12-30] MEDS ORDERED: AZITHROMYCIN 250 MG TAB ONE (08:04)
[2019-12-30] MEDS ORDERED: DERMABOND SKIN ADHESIVE TOP ONE (08:44)
--- NOTE | 2019-12-30 09:53 | RAD REPORT ---
EXAM DESCRIPTION: CT - Stone Protocol - 12/30/2019 7:29 am CLINICAL HISTORY: 64-year-old male with chest pain and right lower quadrant pain TECHNIQUE: Axial CT imaging of the abdomen and pelvis was performed. Sagittal and coronal reconstr ucted images were then performed. The CT study is performed according to ALARA (as low as reasonably achievable) or ALARA/IMAGE GENTLY, with automatic adjustment of mA and/or kV according to patient sialicja e. Performed on: 12/30/2019 at 6:37 AM COMPARISON: 03/28/2019. FINDINGS: Lung bases: The lung bases are grossly clear. There is a stable 6 mm pleural-based density in left lower lobe (series 201, image 19). Liver: The liver is mildly enlarged and measures 18 cm in craniocaudal dimension. No focal hepatic ab normalities are appreciated on this unenhanced scan. Liver attenuation is within normal limits. Spleen: The spleen is normal is size, configuration and attenuation. No focal splenic abnormalities a re appreciated on this unenhanced scan. Gallbladder and bile duct: The gallbladder is well distended and unremarkable. There is no biliary ductal dilatation. Pancreas: The pancreas is grossly normal in size and configuration. Adrenal Glands: The adrenal glands are normal in size and configuration. Kidneys: The kidneys are normal in size and configuration. There is no evidence of hydronephrosis. Th ere is no evidence of nephrolithiasis. There is a tiny stable exophytic left renal cyst. Stomach: The stomach is grossly normal. There is no definite hiatal hernia. Bowel: The bowel gas pattern is non specific and non obstructive. Appendix: The appendix is not well visualized on this examination. Free air: There is no evidence of free air. Free fluid: There is no evidence of free fluid. Vasculature: The aorta is normal in caliber and contour. The inferior vena cava is grossly unremarkab le. Lymphadenopathy: No pathologic lymphadenopathy is identified. Bladder: The bladder is well distended and smooth in contour. Reproductive: The prostate gland is grossly within normal limits. There are a few coarse chronic calc ifications within the prostate gland. Bones: No acute osseous abnormalities are identified. There are degenerative changes of the visualize d thoracolumbar spine. Soft tissues: There is a small fat-containing left inguinal hernia. IMPRESSION: 1. Normal unenhanced CT scan of the abdomen and pelvis. There is no evidence of urinary tract calcification or urinary tract obstruction. 2. No acute abnormalities are identified on this examination. 3. There is borderline hepatomegaly. Electronically signed by: Pao Aguilar DO 12/30/2019 7:02 AM HAND [employer]AND[employer]TER Due to temporary technical issues with the PACS/Fluency reporting system, reports are being signed by the in house radiologist as a courtesy to ensure prompt reporting. The interpreting radiologist is f ully responsible for the content of the report.
--- NOTE | 2019-12-30 10:02 | ER ---
Nurse's Notes [facility] Name: Kyaw Gay Jr Age: 64 yrs Sex: Male : 1955 Arrival Date: 12/30/2019 Time: 05:28 Bed 7 Private MD: Diagnosis: Pneumonia, unspecified organism;Lower abdominal pain, unspecified Presentation: 12/30 05:39 Presenting complaint: Patient states: Chest pain and RLQ abdominal pain that began lp1 yesterday; Pain unchanged today. Transition of care: patient was not received from another setting of care. Onset of symptoms was December 30, 2019. Risk Assessment: Do you want to hurt yourself or someone else? Patient reports no desire to harm self or others. Initial Sepsis Screen: Does the patient meet any 2 criteria? No. Patient's initial sepsis screen is negative. Does the patient have a suspected source of infection? No. Patient's initial sepsis screen is negative. Care prior to arrival: None. 05:39 Method Of Arrival: Wheelchair lp1 05:39 Acuity: ADOLFO 3 lp1 Historical: - Allergies: 05:42 No Known Allergies; lp1 - Home Meds: 05:42 Unable to obtain [Active]; lp1 - PMHx: 05:42 Cancer; Hepatitis; HIV; Hypertension; lp1 - PSHx: 05:42 None; lp1 - Immunization history:: Adult Immunizations up to date. - Coronavirus screen:: The patient has NOT traveled to [place], [place], or [place] in the past 14 days. The patient has NOT had contact with known/suspected case of Coronavirus?. - Social history:: Smoking status: Patient denies any tobacco usage or history of. - Ebola Screening: : No symptoms or risks identified at this time. Screenin:42 Abuse screen: Denies threats or abuse. Denies injuries from another. Nutritional lp1 screening: No deficits noted. Tuberculosis screening: No symptoms or risk factors identified. Fall Risk Total Stoddard Fall Scale indicates High Risk Score (45 or more points). Fall prevention measures have been instituted. Side Rails Up X 2. Assessment: 05:42 General: Appears in no apparent distress. Behavior is cooperative, appropriate for age. lp1 Pain: Complains of pain in chest and right lower quadrant Pain does not radiate. Pain currently is 9 out of 10 on a pain scale. Quality of pain is described as sharp, Pain began gradually. Neuro: Level of Consciousness is Oriented to person, place, situation. Cardiovascular: Patient's skin is warm and dry. Respiratory: Respiratory effort is even, Respiratory pattern is regular, Breath sounds are clear bilaterally. GI: Reports bloating. : No signs and/or symptoms were reported regarding the genitourinary system. EENT: No signs and/or symptoms were reported regarding the EENT system. Derm: Skin is intact, Skin is dry. Musculoskeletal: No deficits noted. 07:01 Reassessment: Patient appears in no apparent distress at this time. No changes from previously documented assessment. Patient and/or family updated on plan of care and expected duration. Pain level reassessed. Patient is alert, oriented x 3, equal unlabored respirations, skin warm/dry/pink. Vital Signs: 05:40 BP 126 / 84; Pulse 88; Resp 20; Temp 99; Pulse Ox 100% on R/A; Weight 108.86 kg (R); Height 6 ft. 0 in. (182.88 cm); Pain 9/10; 07:01 BP 114 / 74; Pulse 79; Resp 18; Pulse Ox 100% on R/A; 05:40 Body Mass Index 32.55 (108.86 kg, 182.88 cm) ED Course: 05:28 Patient arrived in ED. ag3 05:40 Triage completed. lp1 05:40 Arm band placed on. lp1 05:42 Patient has correct armband on for positive identification. Placed in gown. Cardiac lp1 monitor on. Pulse ox on. NIBP on. 05:42 Patient maintains SpO2 saturation greater than 95% on room air. lp1 05:47 Emile Herman is Primary Nurse. 06:01 Jenni Romero FNP-C is [facility]. snw 06:01 Felix Mackenzie MD is Attending Physician. snw 06:35 Inserted saline lock: 18 gauge in left forearm, using aseptic technique. Blood ds4 collected. 06:50 First set of blood cultures drawn by me, Second set of blood cultures drawn by me. ds4 Administered Medications: 06:27 Drug: fentaNYL (PF) 25 mcg Route: IVP; Site: right forearm; 08:06 Drug: Zithromax 500 mg Route: PO; ph 08:08 Drug: Bentyl 20 mg Route: PO; ph Outcome: 07:36 Discharge ordered by . ashlee 08:11 Patient left the ED. ph Signatures: Jenni Romero, SETH-C RE ETCHER-Gabrielw Michelle Guerrier RN RN lp1 Niall Singh ds4 Lily Seaman RN RN [facility]ast. [facility], Emile Sylvester, Herminia ag3 Corrections: (The following items were deleted from the chart) 05:50 05:40 BP 126 / 84; Pulse 88bpm; Resp 20bpm; Pulse Ox 100% RA; 108.86 kg Reported; wh Height 6 ft. 0 in.; BMI: 32.5; Pain 9/10; lp1
--- NOTE | 2019-12-30 10:02 | EDPHYS ---
Physician Documentation [facility] Name: Kyaw Gay Jr Age: 64 yrs Sex: Male : 1955 Arrival Date: 12/30/2019 Time: 05:28 Bed 7 Private MD: ED Physician Felix Mackenzie HPI: 12/30 06:19 This 64 yrs old Black Male presents to ER via Wheelchair with complaints of Chest Pain. snw 06:19 Onset: The symptoms/episode began/occurred suddenly, yesterday. Associated signs and snw symptoms: The patient has no apparent associated signs or symptoms. Modifying factors: The patient symptoms are alleviated by nothing, the patient symptoms are aggravated by coughing. The patient has experienced similar episodes in the past. The patient has not recently seen a physician. Historical: - Allergies: 05:42 No Known Allergies; lp1 - Home Meds: 05:42 Unable to obtain [Active]; lp1 - PMHx: 05:42 Cancer; Hepatitis; HIV; Hypertension; lp1 - PSHx: 05:42 None; lp1 - Immunization history:: Adult Immunizations up to date. - Coronavirus screen:: The patient has NOT traveled to [place], [place], or [place] in the past 14 days. The patient has NOT had contact with known/suspected case of Coronavirus?. - Social history:: Smoking status: Patient denies any tobacco usage or history of. - Ebola Screening: : No symptoms or risks identified at this time. ROS: 06:18 Constitutional: Negative for fever, chills, and weight loss, Eyes: Negative for injury, snw pain, redness, and discharge, ENT: Negative for injury, pain, and discharge, Neck: Negative for injury, pain, and swelling. 06:18 Back: Negative for injury and pain, : Negative for injury, bleeding, discharge, and swelling, MS/Extremity: Negative for injury and deformity, Skin: Negative for injury, rash, and discoloration. 06:18 Cardiovascular: Positive for chest pain. 06:18 Respiratory: Positive for cough. 06:18 Abdomen/GI: Positive for abdominal pain, of the right lower quadrant, Negative for nausea, vomiting, and diarrhea, hematemesis, black/tarry stool, rectal bleeding. 06:18 Neuro: Positive for headache. Exam: 06:18 Constitutional: This is a well developed, well nourished patient who is awake, alert, snw and in no acute distress. Head/Face: Normocephalic, atraumatic. Eyes: Pupils equal round and reactive to light, extra-ocular motions intact. Lids and lashes normal. Conjunctiva and sclera are non-icteric and not injected. Cornea within normal limits. Periorbital areas with no swelling, redness, or edema. ENT: Nares patent. No nasal discharge, no septal abnormalities noted. Tympanic membranes are normal and external auditory canals are clear. Oropharynx with no redness, swelling, or masses, exudates, or evidence of obstruction, uvula midline. Mucous membranes moist. Neck: Trachea midline, no thyromegaly or masses palpated, and no cervical lymphadenopathy. Supple, full range of motion without nuchal rigidity, or vertebral point tenderness. No Meningismus. Chest/axilla: Normal chest wall appearance and motion. Nontender with no deformity. No lesions are appreciated. Cardiovascular: Regular rate and rhythm with a normal S1 and S2. No gallops, murmurs, or rubs. Normal PMI, no JVD. No pulse deficits. Respiratory: Lungs have equal breath sounds bilaterally, clear to auscultation and percussion. No rales, rhonchi or wheezes noted. No increased work of breathing, no retractions or nasal flaring. Abdomen/GI: Soft, non-tender, with normal bowel sounds. No distension or tympany. No guarding or rebound. No evidence of tenderness throughout. Back: No spinal tenderness. No costovertebral tenderness. Full range of motion. Skin: Warm, dry with normal turgor. Normal color with no rashes, no lesions, and no evidence of cellulitis. MS/ Extremity: Pulses equal, no cyanosis. Neurovascular intact. Full, normal range of motion. Neuro: Awake and alert, GCS 15, oriented to person, place, time, and situation. Cranial nerves II-XII grossly intact. Motor strength 5/5 in all extremities. Sensory grossly intact. Cerebellar exam normal. Normal gait. Psych: Awake, alert, with orientation to person, place and time. Behavior, mood, and affect are within normal limits. Vital Signs: 05:40 BP 126 / 84; Pulse 88; Resp 20; Temp 99; Pulse Ox 100% on R/A; Weight 108.86 kg (R); wh Height 6 ft. 0 in. (182.88 cm); Pain 9/10; 07:01 BP 114 / 74; Pulse 79; Resp 18; Pulse Ox 100% on R/A; wh 05:40 Body Mass Index 32.55 (108.86 kg, 182.88 cm) MDM: 06:02 Patient medically screened. snw 07:37 Data reviewed: vital signs, nurses notes. Data interpreted: Pulse oximetry: on room air snw is 100 %. Interpretation: normal. Counseling: I had a detailed discussion with the patient and/or guardian regarding: the historical points, exam findings, and any diagnostic results supporting the discharge/admit diagnosis, lab results, radiology results, the need for outpatient follow up, to return to the emergency department if symptoms worsen or persist or if there are any questions or concerns that arise at home. Special discussion: Based on the patient's history, exam, and Dx evaluation, there is no indication for emergent intervention or inpatient Tx. It is understood by the patient/guardian that if the Sx's persist or worsen they need to return immediately for re-evaluation. Based on the patient's Hx, exam, and Dx evaluation, there is no indication for emergent surgery or inpatient Tx. It is understood by the patient/guardian that if the Sx's persist or worsen they need to return immediately for re-evaluation. Based on the history and exam findings, there is no indication for further emergent testing or inpatient evaluation. I discussed with the patient/guardian the need to see the primary care provider for further evaluation of the symptoms. 12/30 05:39 Order name: Cardiac monitoring; Complete Time: 05:47 4 12/30 05:39 Order name: EKG - Nurse/Tech; Complete Time: 05:47 4 12/30 05:39 Order name: IV Saline Lock; Complete Time: 05:47 4 12/30 05:39 Order name: Labs collected and sent; Complete Time: 05:47 4 12/30 05:39 Order name: O2 Per Protocol; Complete Time: 05:47 4 12/30 05:39 Order name: O2 Sat Monitoring; Complete Time: 05:47 tw4 Administered Medications: 06:27 Drug: fentaNYL (PF) 25 mcg Route: IVP; Site: right forearm; wh 08:06 Drug: Zithromax 500 mg Route: PO; ph 08:08 Drug: Bentyl 20 mg Route: PO; ph Disposition: 12/30/19 07:36 Discharged to Home. Impression: Pneumonia, unspecified organism, Lower abdominal pain, unspecified. - Condition is Stable. - Discharge Instructions: Abdominal Pain, Adult, Flank Pain, Adult, Community-Acquired Pneumonia, Adult, Cough, Adult, Rehydration, Adult. - Prescriptions for Bentyl 20 mg Oral Tablet - take 1 tablet by ORAL route every 6 hours As needed; 20 tablet. Zithromax 500 mg Oral Tablet - take 1 tablet by ORAL route once daily for 5 days; 5 tablet. - Medication Reconciliation Form, Thank You Letter, Antibiotic Education, Prescription Opioid Use form. - Follow up: Emergency Department; When: As needed; Reason: Worsening of condition. Follow up: Private Physician; When: 1 week; Reason: Recheck today's complaints, Continuance of care. Addendum: 01/02/2020 06:33 Co-signature as Attending Physician, Felix Mackenzie MD I agree with the assessment and t w4 plan of care. Signatures: Jenni Romero, SPINNING FRAME FIXER-C SPINNING FRAME FIXER-Csnw Michelle Guerrier RN RN lp1 Lily Seaman RN RN [facility], [facility] Felix Mackenzie MD MD tw4 Corrections: (The following items were deleted from the chart) 12/30 08:11 07:36 12/30/2019 07:36 Discharged to Home. Impression: Pneumonia, unspecified organism; ph Lower abdominal pain, unspecified. Condition is Stable. Forms are Medication Reconciliation Form, Thank You Letter, Antibiotic Education, Prescription Opioid Use. Follow up: Emergency Department; When: As needed; Reason: Worsening of condition. Follow up: Private Physician; When: 1 week; Reason: Recheck today's complaints, Continuance of care. snw
--- NOTE | 2019-12-30 10:23 | EKG ---
Test Date: 2019-12-30 Test Time: 05:39:03 Landing Support Specialist: DM MEASUREMENT RESULTS: Intervals: Rate: 86 NH: 172 QRSD: 92 QT: 354 QTc: 423 [place]: P: 61 NH: 172 QRS: -10 T: 202 INTERPRETIVE STATEMENTS: Normal sinus rhythm Left ventricular hypertrophy with repolarization abnormality Abnormal ECG Compared to ECG 03/27/2019 09:27:19 Left ventricular hypertrophy now present Early repolarization now present ST (T wave) deviation no longer present Possible ischemia no longer present Electronically Signed On 12-30-19 10:22:56 LINE PULLER by Luca Cruz
== END 2019-12-30 08:11 | disposition home or self-care (01) ==
LOC: ER 05:27
DX: J18.9 Pneumonia, unspecified organism (principal); R10.30 Lower abdominal pain, unspecified; I10 Essential (primary) hypertension; Z21 Asymptomatic human immunodeficiency virus [HIV] infection status
CPT/HCPCS: 93005; 85025; 80048; 36415; 83735; 85610; 80076; 84484; 83880; 76377; 74176; 71045; 96374; 99285; J3010

== ENCOUNTER 2020-11-22 05:15 | Emergency (ER) | payer OTHER ==
[2020-11-22 07:01] LABS: Absolute Lymphocytes (CBC) 0.8 K/uL (0.7-4.9); Basophils % 0.6 % (0-1.3); Hematocrit 37.4 % (39.6-49.0); Lymphocytes % 18.2 % (15.3-44.8); MPV 9.4 fL (7.6-11.3); RBC Red Blood Cell Count 4.08 M/uL (4.33-5.43)
[2020-11-22] MEDS ORDERED: ONDANSETRON 4 MG/2 ML VIAL ONE (07:05)
[2020-11-22] MEDS ORDERED: MORPHINE 2 MG/ML SYR ONE (07:05)
[2020-11-22] MEDS ORDERED: CEFTRIAXONE/SWI 1gm 1 GM/10 ML SYR ONE (07:05)
[2020-11-22 07:17] LABS: Albumin 3.7 g/dL (3.4-5.0); Bilirubin Total 0.4 mg/dL (0.2-1.0); Potassium 4.1 mmol/L (3.5-5.1); Protein, Total 8.1 g/dL (6.4-8.2)
[2020-11-22] MEDS ORDERED: LIDOCAINE JELLY 2%- 5 ML TUBE ONE ×2 (08:20)
--- NOTE | 2020-11-22 08:42 | ER ---
Nurse's Notes [facility] Name: Kyaw Gay Jr Age: 65 yrs Sex: Male : 1955 Arrival Date: 11/22/2020 Time: 05:15 Bed 3 Private MD: Diagnosis: Retention of urine;Uretheral Stricture Presentation: 11/22 05:27 Chief complaint: Patient states: i have difficulty urinating since 2 am today. mg2 Coronavirus screen: Client denies travel out of the [place] in the last 14 days. At this time, the client does not indicate any symptoms associated with coronavirus-19. Ebola Screen: No symptoms or risks identified at this time. Initial Sepsis Screen: Does the patient meet any 2 criteria? No. Patient's initial sepsis screen is negative. Does the patient have a suspected source of infection? No. Patient's initial sepsis screen is negative. Risk Assessment: Do you want to hurt yourself or someone else? Patient reports no desire to harm self or others. Onset of symptoms was November 22, 2020. 05:27 Method Of Arrival: [place] [facility] [place] Acuity: ADOLFO 3 mg2 Triage Assessment: 05:29 General: Appears uncomfortable, Behavior is cooperative. Pain: Complains of pain in mg2 abdomen. EENT: No deficits noted. Neuro: Level of Consciousness is awake, alert, obeys commands, Oriented to person, place, time, situation. Cardiovascular: Capillary refill < 3 seconds Patient's skin is warm and dry. Respiratory: Airway is patent Respiratory effort is even, unlabored, Respiratory pattern is regular, symmetrical. GI: No signs and/or symptoms were reported involving the gastrointestinal system. : Reports inability to void, since 2 am pain in suprapubic area. Derm: Skin is intact, is healthy with good turgor, Skin is pink, warm \T\ dry. normal. Musculoskeletal: Circulation, motion, and sensation intact. Capillary refill < 3 seconds. Historical: - Allergies: :29 No Known Allergies; mg2 - Home Meds: 05:29 blood pressure medicine [Active]; hiv medicine [Active]; mg2 - PMHx: 05:29 Cancer; Hepatitis; HIV; Hypertension; mg2 - PSHx: 05:29 None; mg2 - Immunization history:: Flu vaccine is not up to date. - Social history:: Smoking status: Patient denies any tobacco usage or history of. Patient/guardian denies using alcohol, street drugs, IV drugs. - Family history:: not pertinent. Screenin:30 Abuse screen: Denies threats or abuse. Denies injuries from another. Nutritional mg2 screening: No deficits noted. Tuberculosis screening: No symptoms or risk factors identified. Fall Risk None identified. Assessment: 05:30 General: see triage note. mg2 06:19 Reassessment: pa catheter insertion tried bloody urine noted. positive resistance, rr5 ED provider aware tried by dr. travis unsuccessful for referral to urologist. 07:00 Reassessment: RECD REPORT FROM [facility]. 65YO BM P/W URINARY RETENTION. PREVIOUS bp SHIFT UNABLE TO PASS PA 2/2 OBSTRUCTION. UROLOGY C/S PENDING FOR CATH PLACEMENT. 08:00 Reassessment: URO DR RIVERA AT B/S WITH CYSTO CART. bp 08:27 Reassessment: PA PLACED VIA CYSTO BY UROLOGY. RECOMMENDS 2 WK GRAM NEG ABX, F/U IN bp CLINIC AND URINE CX. 09:29 Reassessment: LEG BAG PLACED. PT D/C WITH PA IN PLACE PER URO. PT D/C HOME bp AMBULATORY, DX WITH URINARY RETENTION. Vital Signs: 05:27 BP 126 / 100; Pulse 77; Resp 20; Temp 97.9; Pulse Ox 96% on R/A; Weight 104.33 kg; mg2 Height 6 ft. 0 in. (182.88 cm); Pain 10/10; 07:02 BP 99 / 63; Pulse 73; Resp 18; Pulse Ox 98% on R/A; mg2 08:00 BP 112 / 79; Pulse 71; Resp 16; Pulse Ox 100% ; bp 09:00 BP 110 / 73; Pulse 73; Resp 16; Temp 98; Pulse Ox 97% ; bp 05:27 Body Mass Index 31.19 (104.33 kg, 182.88 cm) mg2 ED Course: 05:15 Patient arrived in ED. cl3 05:27 Arik Garcia, RN is Primary Nurse. mg2 05:28 Triage completed. mg2 05:29 Arm band placed on. mg2 05:31 Patient has correct armband on for positive identification. mg2 05:46 Door closed. mg2 05:46 No provider procedures requiring assistance completed. Patient did not have IV access mg2 during this emergency room visit. 05:47 Bladder scan completed. 655 ml. mg2 05:54 Vitaliy Travis MD is Attending Physician. kimberlyn 06:42 Inserted saline lock: 20 gauge in right antecubital area, using aseptic technique. ar5 08:39 Attending Physician role handed off by Vitaliy Travis MD kdr 08:39 Dutch Recinos MD is Attending Physician. kdr 08:40 Masoud Rivera MD is Referral Physician. kdr Administered Medications: 07:01 Drug: morphine 2 mg Route: IVP; Site: right antecubital; mg2 08:28 Follow up: Response: No adverse reaction bp 07:01 Drug: Zofran (Ondansetron) 4 mg Route: IVP; Site: right antecubital; mg2 08:28 Follow up: Response: No adverse reaction bp 07:02 Drug: Rocephin 1 grams Route: IV; Rate: per protocol; Site: right antecubital; mg2 09:31 Follow up: IV Status: Completed infusion; IV Intake: 50ml bp Intake: 09:31 IV: 50ml; Total: 50ml. bp Outcome: 08:41 Discharge ordered by . kdr 09:31 Discharged to home ambulatory, with family. bp 09:31 Condition: stable 09:31 Discharge instructions given to patient, Instructed on discharge instructions, follow up and referral plans. medication usage, Demonstrated understanding of instructions, follow-up care, medications, Prescriptions given X 1. 09:32 Patient left the ED. bp Signatures: Vitaliy Travis MD MD cha Rittger, Kevin, MD MD kdr Peltier, Brian, RN RN bp Arik Garcia RN RN mg2 Roque, Raymond, RN RN [email or web address] Lita Joshi Charde cl3 Corrections: (The following items were deleted from the chart) 05:57 05:27 Pulse 77bpm; Resp 20bpm; Pulse Ox 96% RA; Temp 97.9F; 104.33 kg; Height 6 ft. 0 mg2 in.; BMI: 31.1; Pain 10/10; mg2
--- NOTE | 2020-11-22 08:42 | EDPHYS ---
Physician Documentation [facility] Name: Kyaw Gay Jr Age: 65 yrs Sex: Male : 1955 Arrival Date: 11/22/2020 Time: 05:15 Bed 3 Private MD: ED Physician Dutch Recinos HPI: 11/22 06:22 This 65 yrs old Black Male presents to ER via Wheelchair with complaints of Urinary kimberlyn Problem. 06:22 The patient presents with urinary symptoms, dysuria, hesitancy to initiate urine kimberlyn stream, retention. Onset: The symptoms/episode began/occurred just prior to arrival. Modifying factors: The symptoms are alleviated by nothing, the symptoms are aggravated by nothing. Associated signs and symptoms: The patient has no apparent associated signs or symptoms. Severity of symptoms: At their worst the symptoms were moderate, in the emergency department the symptoms are unchanged. The patient has not experienced similar symptoms in the past. Historical: - Allergies: 05:29 No Known Allergies; mg2 - Home Meds: 05:29 blood pressure medicine [Active]; hiv medicine [Active]; mg2 - PMHx: 05:29 Cancer; Hepatitis; HIV; Hypertension; mg2 - PSHx: 05:29 None; mg2 - Immunization history:: Flu vaccine is not up to date. - Social history:: Smoking status: Patient denies any tobacco usage or history of. Patient/guardian denies using alcohol, street drugs, IV drugs. - Family history:: not pertinent. ROS: 06:22 Constitutional: Negative for fever, chills, and weight loss, Eyes: Negative for injury, kimberlyn pain, redness, and discharge, ENT: Negative for injury, pain, and discharge, Neck: Negative for injury, pain, and swelling, Cardiovascular: Negative for chest pain, palpitations, and edema, Respiratory: Negative for shortness of breath, cough, wheezing, and pleuritic chest pain, Back: Negative for injury and pain, MS/Extremity: Negative for injury and deformity, Skin: Negative for injury, rash, and discoloration, Neuro: Negative for headache, weakness, numbness, tingling, and seizure, Psych: Negative for depression, anxiety, suicide ideation, homicidal ideation, and hallucinations, Allergy/Immunology: Negative for hives, rash, and allergies, Endocrine: Negative for neck swelling, polydipsia, polyuria, polyphagia, and marked weight changes, Hematologic/Lymphatic: Negative for swollen nodes, abnormal bleeding, and unusual bruising. 06:22 Abdomen/GI: Positive for abdominal distension. 06:22 : Positive for urinary symptoms, hematuria. Exam: 06:22 Constitutional: This is a well developed, well nourished patient who is awake, alert, kimberlyn and in no acute distress. Head/Face: Normocephalic, atraumatic. Eyes: Pupils equal round and reactive to light, extra-ocular motions intact. Lids and lashes normal. Conjunctiva and sclera are non-icteric and not injected. Cornea within normal limits. Periorbital areas with no swelling, redness, or edema. ENT: Nares patent. No nasal discharge, no septal abnormalities noted. Tympanic membranes are normal and external auditory canals are clear. Oropharynx with no redness, swelling, or masses, exudates, or evidence of obstruction, uvula midline. Mucous membranes moist. Neck: Trachea midline, no thyromegaly or masses palpated, and no cervical lymphadenopathy. Supple, full range of motion without nuchal rigidity, or vertebral point tenderness. No Meningismus. Chest/axilla: Normal chest wall appearance and motion. Nontender with no deformity. No lesions are appreciated. Cardiovascular: Regular rate and rhythm with a normal S1 and S2. No gallops, murmurs, or rubs. Normal PMI, no JVD. No pulse deficits. Respiratory: Lungs have equal breath sounds bilaterally, clear to auscultation and percussion. No rales, rhonchi or wheezes noted. No increased work of breathing, no retractions or nasal flaring. Back: No spinal tenderness. No costovertebral tenderness. Full range of motion. Skin: Warm, dry with normal turgor. Normal color with no rashes, no lesions, and no evidence of cellulitis. MS/ Extremity: Pulses equal, no cyanosis. Neurovascular intact. Full, normal range of motion. Neuro: Awake and alert, GCS 15, oriented to person, place, time, and situation. Cranial nerves II-XII grossly intact. Motor strength 5/5 in all extremities. Sensory grossly intact. Cerebellar exam normal. Normal gait. Psych: Awake, alert, with orientation to person, place and time. Behavior, mood, and affect are within normal limits. 06:22 Abdomen/GI: Inspection: distension, Bowel sounds: normal, Palpation: mild abdominal tenderness, Liver: no appreciated palpable abnormalities, Hernia: not appreciated. Vital Signs: 05:27 BP 126 / 100; Pulse 77; Resp 20; Temp 97.9; Pulse Ox 96% on R/A; Weight 104.33 kg; mg2 Height 6 ft. 0 in. (182.88 cm); Pain 10/10; 07:02 BP 99 / 63; Pulse 73; Resp 18; Pulse Ox 98% on R/A; mg2 08:00 BP 112 / 79; Pulse 71; Resp 16; Pulse Ox 100% ; bp 09:00 BP 110 / 73; Pulse 73; Resp 16; Temp 98; Pulse Ox 97% ; bp 05:27 Body Mass Index 31.19 (104.33 kg, 182.88 cm) mg2 MDM: 05:54 Patient medically screened. [facility] 06:26 Differential diagnosis: urinary retention. Data reviewed: vital signs, nurses notes, [facility] lab test result(s). Data interpreted: quality assurance monitor body: rate is 77 beats/min, rhythm is regular, Pulse oximetry: on room air is 96 %. Counseling: I had a detailed discussion with the patient and/or guardian regarding: the historical points, exam findings, and any diagnostic results supporting the discharge/admit diagnosis, lab results, the need for outpatient follow up, for definitive care, a urologist. 06:27 Physician consultation: Masoud Rivera MD and will see patient in ED. [facility] 11/22 06:22 Order name: CBC with Diff; Complete Time: 07:53 kimberlyn 11/22 06:22 Order name: Comprehensive Metabolic Panel; Complete Time: 07:53 [facility] 11/22 06:22 Order name: Urine Culture [facility] 11/22 08:36 Order name: Urine Dipstick--Ancillary (enter results) em1 11/22 05:27 Order name: Bladder Scanner; Complete Time: 05:52 sg 11/22 05:53 Order name: [place]an; Complete Time: 05:53 mg2 11/22 06:22 Order name: Urine Dipstick-Ancillary (obtain specimen); Complete Time: 08:35 [facility] 11/22 06:22 Order name: IV Saline Lock - Large Bore; Complete Time: 06:42 [facility] Administered Medications: 07:01 Drug: morphine 2 mg Route: IVP; Site: right antecubital; mg2 08:28 Follow up: Response: No adverse reaction bp 07:01 Drug: Zofran (Ondansetron) 4 mg Route: IVP; Site: right antecubital; mg2 08:28 Follow up: Response: No adverse reaction bp 07:02 Drug: Rocephin 1 grams Route: IV; Rate: per protocol; Site: right antecubital; mg2 09:31 Follow up: IV Status: Completed infusion; IV Intake: 50ml bp Disposition: 11/22/20 08:41 Discharged to Home. Impression: Retention of urine, Uretheral Stricture. - Condition is Stable. - Discharge Instructions: Acute Urinary Retention, Male, [facility]. - Prescriptions for Bactrim DS 800- 160 mg Oral Tablet - take 1 tablet by ORAL route every 12 hours for 10 days; 20 tablet. - Medication Reconciliation Form, Thank You Letter, Antibiotic Education form. - Follow up: Private Physician; When: 2 - 3 days; Reason: If symptoms return, Further diagnostic work-up, Recheck today's complaints, Continuance of care, Re-evaluation by your physician. Follow up: Masoud Rivera MD; When: 1 week; Reason: If symptoms return, Further diagnostic work-up, Recheck today's complaints, Continuance of care, Re-evaluation by your physician. Signatures: Dispatcher [employer] EDJarad Barnhart RN RN sg Anderson, Corey, MD MD cha Rittger, Kevin, MD MD kdr Peltier, Brian, RN RN bp Arik Garcia RN RN mg2 Corrections: (The following items were deleted from the chart) 09:32 08:41 11/22/2020 08:41 Discharged to Home. Impression: Retention of urine; Uretheral bp Stricture. Condition is Stable. Forms are Medication Reconciliation Form, Thank You Letter, Antibiotic Education, Prescription Opioid Use. Follow up: Private Physician; When: 2 - 3 days; Reason: If symptoms return, Further diagnostic work-up, Recheck today's complaints, Continuance of care, Re-evaluation by your physician. Follow up: Masoud Rivera; When: 1 week; Reason: If symptoms return, Further diagnostic work-up, Recheck today's complaints, Continuance of care, Re-evaluation by your physician. kdr
[2020-11-22 09:08] LABS: Urine Blood 3+ (NEG); Urine Glucose NEGATIVE (NEG); Urine Protein NEGATIVE (NEG); Urine Specific Gravity 1.025 (1.005-1.030); Urine pH 5.5 (5.0-7.0)
[2020-11-22 09:48] VITALS: BP 110/73; TEMP 98; O2SAT 97
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
== END 2020-11-22 09:32 | disposition home or self-care (01) ==
LOC: ER 05:15
PROC: 0T7D8ZZ Dilation of Urethra, Via Natural or Artificial Opening Endoscopic (ICD-10-PCS; principal; 2020-11-22)
DX: N35.919 Unspecified urethral stricture, male, unspecified site (principal); I10 Essential (primary) hypertension; Z21 Asymptomatic human immunodeficiency virus [HIV] infection status; K75.9 Inflammatory liver disease, unspecified
CPT/HCPCS: 96365; 87088; 85025; 87086; 36415; 81003; 80053; 96375; 99283; 96366; 52281; J2270; J0696; J2405

== ENCOUNTER 2021-04-16 08:07 | Emergency (ER) | payer OTHER ==
--- NOTE | 2021-04-16 08:38 | EDPHYS ---
Physician Documentation [facility] Name: Kyaw Gay Jr Age: 65 yrs Sex: Male : 1955 Arrival Date: 04/16/2021 Time: 08:10 Bed 6 Private MD: ED Physician Vitaliy Travis HPI: 04/16 08:30 This 65 yrs old Black Male presents to ER via Ambulatory with complaints of Rash. [facility] 08:30 The patient's rash thought to be caused by Dermatitis. The rash is located on the [facility] gluteal cleft. The rash can be described as erythematous, vitiligo. Onset: The symptoms/episode began/occurred 3 day(s) ago. Associated signs and symptoms: Pertinent positives: burning sensation, Pain. Severity of symptoms: At their worst the symptoms were mild in the emergency department the symptoms are unchanged. The patient has experienced similar episodes in the past, a few times. Historical: - Allergies: 08:16 No Known Drug Allergies; ll1 - PMHx: 08:16 Cancer; Hepatitis; HIV; Hypertension; ll1 - PSHx: 08:16 None; ll1 - Immunization history:: Flu vaccine is up to date. - Social history:: Smoking status: Patient denies any tobacco usage or history of. - Family history:: not pertinent. ROS: 08:30 Constitutional: Negative for fever, chills, and weight loss, Eyes: Negative for injury, kimberlyn pain, redness, and discharge, ENT: Negative for injury, pain, and discharge, Neck: Negative for injury, pain, and swelling, Cardiovascular: Negative for chest pain, palpitations, and edema, Respiratory: Negative for shortness of breath, cough, wheezing, and pleuritic chest pain, Abdomen/GI: Negative for abdominal pain, nausea, vomiting, diarrhea, and constipation, Back: Negative for injury and pain, : Negative for injury, bleeding, discharge, and swelling, MS/Extremity: Negative for injury and deformity, Neuro: Negative for headache, weakness, numbness, tingling, and seizure, Psych: Negative for depression, anxiety, suicide ideation, homicidal ideation, and hallucinations, Allergy/Immunology: Negative for hives, rash, and allergies, Endocrine: Negative for neck swelling, polydipsia, polyuria, polyphagia, and marked weight changes, Hematologic/Lymphatic: Negative for swollen nodes, abnormal bleeding, and unusual bruising. 08:30 Skin: Positive for rash, swelling, of the gluteal cleft. Exam: 08:30 Constitutional: This is a well developed, well nourished patient who is awake, alert, kimberlyn and in no acute distress. Head/Face: Normocephalic, atraumatic. Eyes: Pupils equal round and reactive to light, extra-ocular motions intact. Lids and lashes normal. Conjunctiva and sclera are non-icteric and not injected. Cornea within normal limits. Periorbital areas with no swelling, redness, or edema. ENT: Nares patent. No nasal discharge, no septal abnormalities noted. Tympanic membranes are normal and external auditory canals are clear. Oropharynx with no redness, swelling, or masses, exudates, or evidence of obstruction, uvula midline. Mucous membranes moist. Neck: Trachea midline, no thyromegaly or masses palpated, and no cervical lymphadenopathy. Supple, full range of motion without nuchal rigidity, or vertebral point tenderness. No Meningismus. Chest/axilla: Normal chest wall appearance and motion. Nontender with no deformity. No lesions are appreciated. Cardiovascular: Regular rate and rhythm with a normal S1 and S2. No gallops, murmurs, or rubs. Normal PMI, no JVD. No pulse deficits. Respiratory: Lungs have equal breath sounds bilaterally, clear to auscultation and percussion. No rales, rhonchi or wheezes noted. No increased work of breathing, no retractions or nasal flaring. Abdomen/GI: Soft, non-tender, with normal bowel sounds. No distension or tympany. No guarding or rebound. No evidence of tenderness throughout. Back: No spinal tenderness. No costovertebral tenderness. Full range of motion. Male : Normal genitalia with no discharge or lesions. MS/ Extremity: Pulses equal, no cyanosis. Neurovascular intact. Full, normal range of motion. Neuro: Awake and alert, GCS 15, oriented to person, place, time, and situation. Cranial nerves II-XII grossly intact. Motor strength 5/5 in all extremities. Sensory grossly intact. Cerebellar exam normal. Normal gait. Psych: Awake, alert, with orientation to person, place and time. Behavior, mood, and affect are within normal limits. 08:30 Skin: induration, that is mild is noted, vitiligo. Vital Signs: 08:14 BP 155 / 81; Pulse 66; Resp 17; Temp 96.5; Pulse Ox 96% ; Weight 107.95 kg; Height 6 ll1 ft. 0 in. (182.88 cm); Pain 9/10; 08:14 Body Mass Index 32.28 (107.95 kg, 182.88 cm) ll1 MDM: 08:18 Patient medically screened. [facility] 08:33 Differential diagnosis: impetigo, allergic reaction. Data reviewed: vital signs, nurses kimberlyn notes. Data interpreted: quality assurance monitor chassis: rate is 66 beats/min, rhythm is regular, Pulse oximetry: on room air is 96 %. Test interpretation: by ED physician or midlevel provider:. Counseling: I had a detailed discussion with the patient and/or guardian regarding: the historical points, exam findings, and any diagnostic results supporting the discharge/admit diagnosis. Administered Medications: 08:39 Drug: Cipro (ciprofloxacin) 500 mg Route: PO; jd3 08:54 Follow up: Response: Medication administered at discharge. jd3 Disposition: 04/16/21 08:37 Discharged to Home. Impression: Vitiligo, Hemorrhoids and perianal venous thrombosis. - Condition is Stable. - Discharge Instructions: Hemorrhoids, [id number]. - Prescriptions for Colace 100 mg Oral Tablet - take 1 tablet by ORAL route every 12 hours; 14 tablet. Cipro 500 mg Oral Tablet - take 1 tablet by ORAL route every 12 hours for 7 days; 14 tablet. - Medication Reconciliation Form, Thank You Letter, Antibiotic Education, Prescription Opioid Use form. - Follow up: Private Physician; When: 2 - 3 days; Reason: Recheck today's complaints, Continuance of care, Re-evaluation by your physician. Follow up: Roni Rhoades MD; When: 2 - 3 days; Reason: Recheck today's complaints, Re-evaluation by your physician. - Problem is new. - Symptoms have improved. Signatures: Vitaliy Travis MD MD cha Davies, Jonathon RN RN Elmira Brooks RN RN ll1 Corrections: (The following items were deleted from the chart) 08:54 08:37 04/16/2021 08:37 Discharged to Home. Impression: Vitiligo; Hemorrhoids and jd3 perianal venous thrombosis. Condition is Stable. Forms are Medication Reconciliation Form, Thank You Letter, Antibiotic Education, Prescription Opioid Use. Follow up: Private Physician; When: 2 - 3 days; Reason: Recheck today's complaints, Continuance of care, Re-evaluation by your physician. Follow up: Roni Rhoades; When: 2 - 3 days; Reason: Recheck today's complaints, Re-evaluation by your physician. Problem is new. Symptoms have improved. kimberlyn
--- NOTE | 2021-04-16 08:38 | ER ---
Nurse's Notes [facility] Name: Kyaw Gay Jr Age: 65 yrs Sex: Male : 1955 Arrival Date: 04/16/2021 Time: 08:10 Bed 6 Private MD: Diagnosis: Vitiligo;Hemorrhoids and perianal venous thrombosis Presentation: 04/16 08:14 Chief complaint: Patient states: Rash with itching to buttocks for 2 weeks. No fever. ll1 Coronavirus screen: Client denies travel out of the [place] in the last 14 days. At this time, the client does not indicate any symptoms associated with coronavirus-19. Ebola Screen: Patient denies travel to an Ebola-affected area in the 21 days before illness onset. Initial Sepsis Screen: Does the patient meet any 2 criteria? No. Patient's initial sepsis screen is negative. Does the patient have a suspected source of infection? Yes: Skin breakdown/wound. Risk Assessment: Do you want to hurt yourself or someone else? Patient reports no desire to harm self or others. Onset of symptoms was April 02, 2021. 08:14 Method Of Arrival: Ambulatory ll1 08:14 Acuity: ADOLFO 4 ll1 Historical: - Allergies: 08:16 No Known Drug Allergies; ll1 - PMHx: 08:16 Cancer; Hepatitis; HIV; Hypertension; ll1 - PSHx: 08:16 None; ll1 - Immunization history:: Flu vaccine is up to date. - Social history:: Smoking status: Patient denies any tobacco usage or history of. - Family history:: not pertinent. Screenin:23 Abuse screen: Denies threats or abuse. Denies injuries from another. Nutritional kg screening: No deficits noted. Tuberculosis screening: No symptoms or risk factors identified. Fall Risk None identified. No fall in past 12 months (0 pts). No secondary diagnosis (0 pts). No IV (0 pts). Ambulatory Aid- None/Bed Rest/Nurse Assist (0 pts). Gait- Normal/Bed Rest/Wheelchair (0 pts) Mental Status- Oriented to own ability (0 pts). Total Stoddard Fall Scale indicates No Risk (0-24 pts). Assessment: 08:21 General: Appears in no apparent distress. Behavior is calm, cooperative, appropriate kg for age, quiet. Pain: Denies pain. Neuro: No deficits noted. Neuro: Level of Consciousness is awake, alert, obeys commands, Oriented to person, place, time, situation. Cardiovascular: No deficits noted. Capillary refill < 3 seconds. Respiratory: No deficits noted. GI: No deficits noted. : No deficits noted. EENT: No deficits noted. Derm: Skin is intact, Skin is dry, Skin is pink, Skin temperature is warm. 08:53 Reassessment: Patient appears in no apparent distress at this time. Patient and/or jd3 family updated on plan of care and expected duration. Pain level reassessed. Patient is alert, oriented x 3, equal unlabored respirations, skin warm/dry/pink. report understanding of discharge instructions. Vital Signs: 08:14 BP 155 / 81; Pulse 66; Resp 17; Temp 96.5; Pulse Ox 96% ; Weight 107.95 kg; Height 6 ll1 ft. 0 in. (182.88 cm); Pain 9/10; 08:14 Body Mass Index 32.28 (107.95 kg, 182.88 cm) ll1 ED Course: 08:10 Patient arrived in ED. bp1 08:14 Arm band placed on Patient placed in an exam room, on a stretcher. ll1 08:16 Triage completed. ll1 08:18 Vitaliy Travis MD is Attending Physician. kimberlyn 08:21 Alicia Burch is Primary Nurse. kg 08:35 Roni Rhoades MD is Referral Physician. kimberlyn 08:53 No provider procedures requiring assistance completed. Patient did not have IV access jd3 during this emergency room visit. 08:54 Patient has correct armband on for positive identification. Bed in low position. Call jd3 light in reach. Side rails up X 1. Pulse ox on. NIBP on. Administered Medications: 08:39 Drug: Cipro (ciprofloxacin) 500 mg Route: PO; jd3 08:54 Follow up: Response: Medication administered at discharge. jd3 Outcome: 08:37 Discharge ordered by . kimberlyn 08:53 Discharged to home ambulatory. jd3 08:53 Condition: stable 08:53 Discharge instructions given to patient, Instructed on discharge instructions, follow up and referral plans. medication usage, Demonstrated understanding of instructions, follow-up care, medications, Prescriptions given X 2. 08:54 Patient left the ED. jd3 Signatures: Vitaliy Travis MD MD cha Davies, Jonathon, UNA RN jd3 Elmira Mandel RN RN ll1 Yoli English Kristen kg
[2021-04-16] MEDS ORDERED: CIPROFLOXACIN HCL 500 MG TAB ONE (08:56)
[2021-04-16 09:11] VITALS: BP 155/81; TEMP 96.5; O2SAT 96
== END 2021-04-16 08:54 | disposition home or self-care (01) ==
LOC: ER 08:07
DX: L80 Vitiligo (principal); K64.5 Perianal venous thrombosis; I10 Essential (primary) hypertension; Z21 Asymptomatic human immunodeficiency virus [HIV] infection status
CPT/HCPCS: 99283

== ENCOUNTER 2023-07-17 14:41 | Observation (INO) | payer OTHER ==
--- OUTSIDE RECORDS SUMMARY | 2023-07-17 14:46 | XMS REPORT | Continuity of Care Document ---
:1955 Author Organization [facility] t Address [address] [place] [address] [place] [id number] Care Team Providers Name Role Phone Asked, No Pcp Primary Care Physician Unavailable Elaina Petersen Attending Clinician Unavailable Alonso Brizuela Attending Clinician Unavailable Wendy Weinstein Attending Clinician Unavailable Trav CALL, Karie García Attending Clinician Payers Payer Name Policy Type Policy Number Effective Date Expiration Date S genna [employer] MEDICARE 53 [id number] 2020 Common Sp [place] 00:00:00 [facility] Problems Condition Condition Condition Status Onset Resolution Last Treating Co mments Source Name Details Category Date Date Treatment Clinician Date [id number] History of Problem Co mmon rectal or Spirit anal - [facility] cancer [facility] [id number] Primary Problem Commo n osteoarthr Spirit itis, - [facility] unspecifie 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 [facility] [id number] Simple Problem Common chronic Spirit bronchitis - [facility] [id number] BMI Problem Common 33.0-33.9, Spirit adult - [facility] [id number] Nonadheren Problem Co mmon ce to Spirit medication - [facility] 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 - [facility] canal [facility] Status Migraine, Problem Common migrainosu unspecifie Sp rosalina s d, not - [facility] intractabl [facility], with [facility] s Hepatitis Hepatitis Problem Com mon B B Spirit - [facility] Asymptomat 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[facility] ciency ciency virus virus [facility] infection [HIV] Medical infection Center status Chronic Other Problem Common pain chronic Spirit pain - [facility] Mild Mild Problem Common memory memory Spirit disturbanc disturbanc - [facility] e e [facility] [id number] Hepatosple Problem Com mon nomegaly Spirit [facility] Sciatica Lumbago Problem Common with Spirit sciatica, - [facility] left side [facility] [id number] Unable to Problem Co mmon [address] void [facility] [id number] Right-side Problem Co mmon d Spirit abdominal - [facility] pain of [facility] [id number] Family Problem Common history of Spirit prostate - [facility] cancer in [facility] Anxiety Anxiety Problem Common Spirit [facility] Depression Depression Problem C ommon Spirit [facility] Bipolar Bipolar Problem Common disorder disorder [facility] [id number] BPH loc w Problem Com mon urin Spirit obs/LUTS - [facility] [id number] Acute Problem Common urinary Spirit retention - [facility] [id number] Incomplete Problem Co mmon emptying Spirit of bladder - [facility] Allergies, Adverse Reactions, Alerts This patient has no known allergies or adverse reactions. Social History Social Habit Start Date Stop Date Quantity Comments Source History of Tobacco Common Spirit - Use [facility] Gender identity [facility] Sexual orientation Method [facility] Sex Assigned At [birth year] Met [facility] 00:00:00 00:00:00 Smoking Status Start Date Stop Date Source Tobacco smoking [facility] consumption unknown Former Smoker 2022-12-05 00:00:00 2022-12-05 Common Spiri [facility] Medications Ordered Filled Start Stop Current Ordering Indication Dosage Frequency Signature Comments Components Source Medication Medication Date Date Medication? Clinician (SIG) Name Name Tamsulosin Tamsulosin 2022- No 1{capsu BID Tamsulosin HCl 0.4 MG HCl 0.4 MG 04-05 le} HCl 0.4 MG 00:00: 00:00 00 :00 Tamsulosin Tamsulosin 2022- No 1{capsu BID Tamsulosin HCl 0.4 MG HCl 0.4 MG 04-05 le} HCl 0.4 MG 00:00: 00:00 00 :00 Tamsulosin Tamsulosin 2022- No 1{capsu BID Tamsulosin HCl 0.4 MG HCl 0.4 MG 04-05 le} HCl 0.4 MG 00:00: 00:00 00 :00 Tamsulosin Tamsulosin 2022- No 1{capsu BID Tamsulosin HCl 0.4 MG HCl 0.4 MG 04-05 le} HCl 0.4 MG 00:00: 00:00 00 :00 Tamsulosin Tamsulosin 2022- No 1{capsu BID Tamsulosin HCl 0.4 MG HCl 0.4 MG 04-05 le} HCl 0.4 MG 00:00: 00:00 00 :00 Tamsulosin Tamsulosin 2022- No 1{capsu BID Tamsulosin HCl 0.4 MG HCl 0.4 MG 04-05 le} HCl 0.4 MG 00:00: 00:00 00 :00 Tamsulosin Tamsulosin 2022- No 1{capsu BID Tamsulosin HCl 0.4 MG HCl 0.4 MG 04-05 le} HCl 0.4 MG 00:00: 00:00 00 :00 Tamsulosin Tamsulosin 2022- No 1{capsu BID Tamsulosin HCl 0.4 MG HCl 0.4 MG 04-05 le} HCl 0.4 MG 00:00: 00:00 00 :00 Tamsulosin Tamsulosin 2022- No 1{capsu BID Tamsulosin HCl 0.4 MG HCl 0.4 MG 04-05 le} HCl 0.4 MG 00:00: 00:00 00 :00 Tamsulosin Tamsulosin 2022- No 1{capsu BID Tamsulosin HCl 0.4 MG HCl 0.4 MG 04-05 le} HCl 0.4 MG 00:00: 00:00 00 :00 Tamsulosin Tamsulosin 2022- No 1{capsu BID Tamsulosin HCl 0.4 MG HCl 0.4 MG 04-05 le} HCl 0.4 MG 00:00: 00:00 00 :00 Tamsulosin Tamsulosin 2022- No 1{capsu BID Tamsulosin HCl 0.4 MG HCl 0.4 MG 04-05 le} HCl 0.4 MG 00:00: 00:00 00 :00 Tamsulosin Tamsulosin 2022- No 1{capsu BID Tamsulosin HCl 0.4 MG HCl 0.4 MG 04-05 le} HCl 0.4 MG 00:00: 00:00 00 :00 Zestoretic Zestoretic No Zestoretic 20-12.5 MG 20-12.5 MG 20-12.5 MG Aspir-81 81 Aspir-81 81 No 1{table QD Aspir-81 MG MG t} 81 MG Nystatin Nystatin No 1{appli BID Nystatin 433006 458532 cation_ 545160 UNIT/GM UNIT/GM to_affe UNIT/GM cted_ar ea} Albuterol Albuterol No 3{ml_as TID Albuterol Sulfate Sulfate _needed Sulfate (2.5 (2.5 } (2.5 MG/3ML) MG/3ML) MG/3ML) 0.083% 0.083% 0.083% Symbicort Symbicort No 2{puffs BID Symbicort 160-4.5 160-4.5 } 160-4.5 MCG/ACT MCG/ACT MCG/ACT Atrovent Atrovent No 2{puffs QID Atrovent HFA 17 HFA 17 } HFA 17 MCG/ACT MCG/ACT MCG/ACT Zestoretic Zestoretic No Zestoretic 20-12.5 MG 20-12.5 MG 20-12.5 MG Triamcinolo Triamcinolo No 1{appli BID Triamcinol ne ne cation_ one Acetonide Acetonide to_affe Acetonide 0.1 % 0.1 % cted_ar 0.1 % ea} Gabapentin Gabapentin No 1{table TID Gabapentin 100 100 t} 100 Gabapentin Gabapentin No 1{table TID Gabapentin 100 MG 100 MG t} 100 MG Ventolin Ventolin No 2{puffs QID Ventolin HFA 90 HFA 90 _as_nee HFA 90 MCG/ACT MCG/ACT ded} MCG/ACT Zestoretic Zestoretic No Zestoretic 20-12.5 MG 20-12.5 MG 20-12.5 MG Aspir-81 81 Aspir-81 81 No 1{table QD Aspir-81 MG MG t} 81 MG Nystatin Nystatin No 1{appli BID Nystatin 456876 704363 cation_ 926095 UNIT/GM UNIT/GM to_affe UNIT/GM cted_ar ea} Albuterol Albuterol No 3{ml_as TID Albuterol Sulfate Sulfate _needed Sulfate (2.5 (2.5 } (2.5 MG/3ML) MG/3ML) MG/3ML) 0.083% 0.083% 0.083% Symbicort Symbicort No 2{puffs BID Symbicort 160-4.5 160-4.5 } 160-4.5 MCG/ACT MCG/ACT MCG/ACT Atrovent Atrovent No 2{puffs QID Atrovent HFA 17 HFA 17 } HFA 17 MCG/ACT MCG/ACT MCG/ACT Zestoretic Zestoretic No Zestoretic 20-12.5 MG 20-12.5 MG 20-12.5 MG Triamcinolo Triamcinolo No 1{appli BID Triamcinol ne ne cation_ one Acetonide Acetonide to_affe Acetonide 0.1 % 0.1 % cted_ar 0.1 % ea} Gabapentin Gabapentin No 1{table TID Gabapentin 100 100 t} 100 Gabapentin Gabapentin No 1{table TID Gabapentin 100 MG 100 MG t} 100 MG Ventolin Ventolin No 2{puffs QID Ventolin HFA 90 HFA 90 _as_nee HFA 90 MCG/ACT MCG/ACT ded} MCG/ACT Zestoretic Zestoretic No Zestoretic 20-12.5 MG 20-12.5 MG 20-12.5 MG Aspir-81 81 Aspir-81 81 No 1{table QD Aspir-81 MG MG t} 81 MG Symbicort Symbicort No 2{puffs BID Symbicort 160-4.5 160-4.5 } 160-4.5 MCG/ACT MCG/ACT MCG/ACT Zestoretic Zestoretic No Zestoretic 20-12.5 MG 20-12.5 MG 20-12.5 MG Nystatin Nystatin No 1{appli BID Nystatin 713757 045406 cation_ 083168 UNIT/GM UNIT/GM to_affe UNIT/GM cted_ar ea} Triamcinolo Triamcinolo No 1{appli BID Triamcinol ne ne cation_ one Acetonide Acetonide to_affe Acetonide 0.1 % 0.1 % cted_ar 0.1 % ea} Gabapentin Gabapentin No 1{table TID Gabapentin 100 MG 100 MG t} 100 MG Albuterol Albuterol No 3{ml_as TID Albuterol Sulfate Sulfate _needed Sulfate (2.5 (2.5 } (2.5 MG/3ML) MG/3ML) MG/3ML) 0.083% 0.083% 0.083% Gabapentin Gabapentin No 1{table TID Gabapentin 100 100 t} 100 Aspir-81 81 Aspir-81 81 No 1{table QD Aspir-81 MG MG t} 81 MG Ventolin Ventolin No 2{puffs QID Ventolin HFA 90 HFA 90 _as_nee HFA 90 MCG/ACT MCG/ACT ded} MCG/ACT Zestoretic Zestoretic No Zestoretic 20-12.5 MG 20-12.5 MG 20-12.5 MG Atrovent Atrovent No 2{puffs QID Atrovent HFA 17 HFA 17 } HFA 17 MCG/ACT MCG/ACT MCG/ACT Zestoretic Zestoretic No Zestoretic 20-12.5 MG 20-12.5 MG 20-12.5 MG Multivitami Multivitami No Multivitam n Men 50+ - n Men 50+ - in Men 50+ - Gabapentin Gabapentin No 1{table TID Gabapentin 100 MG 100 MG t} 100 MG Aspir-81 81 Aspir-81 81 No 1{table QD Aspir-81 MG MG t} 81 MG Atrovent Atrovent No 2{puffs QID Atrovent HFA 17 HFA 17 } HFA 17 MCG/ACT MCG/ACT MCG/ACT Ventolin Ventolin No 2{puffs QID Ventolin HFA 90 HFA 90 _as_nee HFA 90 MCG/ACT MCG/ACT ded} MCG/ACT Symbicort Symbicort No 2{puffs BID Symbicort 160-4.5 160-4.5 } 160-4.5 MCG/ACT MCG/ACT MCG/ACT Albuterol Albuterol No 3{ml_as TID Albuterol Sulfate Sulfate _needed Sulfate (2.5 (2.5 } (2.5 MG/3ML) MG/3ML) MG/3ML) 0.083% 0.083% 0.083% Zestoretic Zestoretic No Zestoretic 20-12.5 MG 20-12.5 MG 20-12.5 MG Multivitami Multivitami No Multivitam n Men 50+ - n Men 50+ - in Men 50+ - Gabapentin Gabapentin No 1{table TID Gabapentin 100 MG 100 MG t} 100 MG Aspir-81 81 Aspir-81 81 No 1{table QD Aspir-81 MG MG t} 81 MG Atrovent Atrovent No 2{puffs QID Atrovent HFA 17 HFA 17 } HFA 17 MCG/ACT MCG/ACT MCG/ACT Ventolin Ventolin No 2{puffs QID Ventolin HFA 90 HFA 90 _as_nee HFA 90 MCG/ACT MCG/ACT ded} MCG/ACT Symbicort Symbicort No 2{puffs BID Symbicort 160-4.5 160-4.5 } 160-4.5 MCG/ACT MCG/ACT MCG/ACT Albuterol Albuterol No 3{ml_as TID Albuterol Sulfate Sulfate _needed Sulfate (2.5 (2.5 } (2.5 MG/3ML) MG/3ML) MG/3ML) 0.083% 0.083% 0.083% Atrovent Atrovent No 2{puffs QID Atrovent HFA 17 HFA 17 } HFA 17 MCG/ACT MCG/ACT MCG/ACT Symbicort Symbicort No 2{puffs BID Symbicort 160-4.5 160-4.5 } 160-4.5 MCG/ACT MCG/ACT MCG/ACT Aspir-81 81 Aspir-81 81 No 1{table QD Aspir-81 MG MG t} 81 MG Albuterol Albuterol No 3{ml_as TID Albuterol Sulfate Sulfate _needed Sulfate (2.5 (2.5 } (2.5 MG/3ML) MG/3ML) MG/3ML) 0.083% 0.083% 0.083% Gabapentin Gabapentin No 1{table TID Gabapentin 100 MG 100 MG t} 100 MG Lisinopril- Lisinopril- No Lisinopril hydroCHLORO hydroCHLORO -hydroCHLO thiazide thiazide ROthiazide 20-12.5 MG 20-12.5 MG 20-12.5 MG Multivitami Multivitami No Multivitam n Men 50+ - n Men 50+ - in Men 50+ - Ventolin Ventolin No 2{puffs QID Ventolin HFA 90 HFA 90 _as_nee HFA 90 MCG/ACT MCG/ACT ded} MCG/ACT Atrovent Atrovent No 2{puffs QID Atrovent HFA 17 HFA 17 } HFA 17 MCG/ACT MCG/ACT MCG/ACT Symbicort Symbicort No 2{puffs BID Symbicort 160-4.5 160-4.5 } 160-4.5 MCG/ACT MCG/ACT MCG/ACT Aspir-81 81 Aspir-81 81 No 1{table QD Aspir-81 MG MG t} 81 MG Albuterol Albuterol No 3{ml_as TID Albuterol Sulfate Sulfate _needed Sulfate (2.5 (2.5 } (2.5 MG/3ML) MG/3ML) MG/3ML) 0.083% 0.083% 0.083% Gabapentin Gabapentin No 1{table TID Gabapentin 100 MG 100 MG t} 100 MG Lisinopril- Lisinopril- No Lisinopril hydroCHLORO hydroCHLORO -hydroCHLO thiazide thiazide ROthiazide 20-12.5 MG 20-12.5 MG 20-12.5 MG Multivitami Multivitami No Multivitam n Men 50+ - n Men 50+ - in Men 50+ - Ventolin Ventolin No 2{puffs QID Ventolin HFA 90 HFA 90 _as_nee HFA 90 MCG/ACT MCG/ACT ded} MCG/ACT Atrovent Atrovent No 2{puffs QID Atrovent HFA 17 HFA 17 } HFA 17 MCG/ACT MCG/ACT MCG/ACT Symbicort Symbicort No 2{puffs BID Symbicort 160-4.5 160-4.5 } 160-4.5 MCG/ACT MCG/ACT MCG/ACT Aspir-81 81 Aspir-81 81 No 1{table QD Aspir-81 MG MG t} 81 MG Albuterol Albuterol No 3{ml_as TID Albuterol Sulfate Sulfate _needed Sulfate (2.5 (2.5 } (2.5 MG/3ML) MG/3ML) MG/3ML) 0.083% 0.083% 0.083% Gabapentin Gabapentin No 1{table TID Gabapentin 100 MG 100 MG t} 100 MG Lisinopril- Lisinopril- No Lisinopril hydroCHLORO hydroCHLORO -hydroCHLO thiazide thiazide ROthiazide 20-12.5 MG 20-12.5 MG 20-12.5 MG Multivitami Multivitami No Multivitam n Men 50+ - n Men 50+ - in Men 50+ - Ventolin Ventolin No 2{puffs QID Ventolin HFA 90 HFA 90 _as_nee HFA 90 MCG/ACT MCG/ACT ded} MCG/ACT Albuterol Albuterol No 3{ml_as TID Albuterol Sulfate Sulfate _needed Sulfate (2.5 (2.5 } (2.5 MG/3ML) MG/3ML) MG/3ML) 0.083% 0.083% 0.083% Ventolin Ventolin No 2{puffs QID Ventolin HFA 90 HFA 90 _as_nee HFA 90 MCG/ACT MCG/ACT ded} MCG/ACT Symbicort Symbicort No 2{puffs BID Symbicort 160-4.5 160-4.5 } 160-4.5 MCG/ACT MCG/ACT MCG/ACT Multivitami Multivitami No Multivitam n Men 50+ - n Men 50+ - in Men 50+ - Aspir-81 81 Aspir-81 81 No 1{table QD Aspir-81 MG MG t} 81 MG Gabapentin Gabapentin No 1{table TID Gabapentin 100 MG 100 MG t} 100 MG Lisinopril- Lisinopril- No Lisinopril hydroCHLORO hydroCHLORO -hydroCHLO thiazide thiazide ROthiazide 20-12.5 MG 20-12.5 MG 20-12.5 MG Atrovent Atrovent No 2{puffs QID Atrovent HFA 17 HFA 17 } HFA 17 MCG/ACT MCG/ACT MCG/ACT Nystatin Nystatin No 1{appli BID Nystatin 270001 929437 cation_ 008116 UNIT/GM UNIT/GM to_affe UNIT/GM cted_ar ea} Albuterol Albuterol No 3{ml_as TID Albuterol Sulfate Sulfate _needed Sulfate (2.5 (2.5 } (2.5 MG/3ML) MG/3ML) MG/3ML) 0.083% 0.083% 0.083% Symbicort Symbicort No 2{puffs BID Symbicort 160-4.5 160-4.5 } 160-4.5 MCG/ACT MCG/ACT MCG/ACT Atrovent Atrovent No 2{puffs QID Atrovent HFA 17 HFA 17 } HFA 17 MCG/ACT MCG/ACT MCG/ACT Zestoretic Zestoretic No Zestoretic 20-12.5 MG 20-12.5 MG 20-12.5 MG Triamcinolo Triamcinolo No 1{appli BID Triamcinol ne ne cation_ one Acetonide Acetonide to_affe Acetonide 0.1 % 0.1 % cted_ar 0.1 % ea} Gabapentin Gabapentin No 1{table TID Gabapentin 100 100 t} 100 Gabapentin Gabapentin No 1{table TID Gabapentin 100 MG 100 MG t} 100 MG Ventolin Ventolin No 2{puffs QID Ventolin HFA 90 HFA 90 _as_nee HFA 90 MCG/ACT MCG/ACT ded} MCG/ACT Zestoretic Zestoretic No Zestoretic 20-12.5 MG 20-12.5 MG 20-12.5 MG Aspir-81 81 Aspir-81 81 No 1{table QD Aspir-81 MG MG t} 81 MG Symbicort Symbicort No 2{puffs BID Symbicort 160-4.5 160-4.5 } 160-4.5 MCG/ACT MCG/ACT MCG/ACT Zestoretic Zestoretic No Zestoretic 20-12.5 MG 20-12.5 MG 20-12.5 MG Nystatin Nystatin No 1{appli BID Nystatin 166581 406814 cation_ 874065 UNIT/GM UNIT/GM to_affe UNIT/GM cted_ar ea} Triamcinolo Triamcinolo No 1{appli BID Triamcinol ne ne cation_ one Acetonide Acetonide to_affe Acetonide 0.1 % 0.1 % cted_ar 0.1 % ea} Gabapentin Gabapentin No 1{table TID Gabapentin 100 MG 100 MG t} 100 MG Albuterol Albuterol No 3{ml_as TID Albuterol Sulfate Sulfate _needed Sulfate (2.5 (2.5 } (2.5 MG/3ML) MG/3ML) MG/3ML) 0.083% 0.083% 0.083% Gabapentin Gabapentin No 1{table TID Gabapentin 100 100 t} 100 Aspir-81 81 Aspir-81 81 No 1{table QD Aspir-81 MG MG t} 81 MG Ventolin Ventolin No 2{puffs QID Ventolin HFA 90 HFA 90 _as_nee HFA 90 MCG/ACT MCG/ACT ded} MCG/ACT Zestoretic Zestoretic No Zestoretic 20-12.5 MG 20-12.5 MG 20-12.5 MG Atrovent Atrovent No 2{puffs QID Atrovent HFA 17 HFA 17 } HFA 17 MCG/ACT MCG/ACT MCG/ACT Nystatin Nystatin No 1{appli BID Nystatin 140262 300763 cation_ 823058 UNIT/GM UNIT/GM to_affe UNIT/GM cted_ar ea} Gabapentin Gabapentin No 1{table TID Gabapentin 100 100 t} 100 Triamcinolo Triamcinolo No 1{appli BID Triamcinol ne ne cation_ one Acetonide Acetonide to_affe Acetonide 0.1 % 0.1 % cted_ar 0.1 % ea} Atrovent Atrovent No 2{puffs QID Atrovent HFA 17 HFA 17 } HFA 17 MCG/ACT MCG/ACT MCG/ACT Ventolin Ventolin No 2{puffs QID Ventolin HFA 90 HFA 90 _as_nee HFA 90 MCG/ACT MCG/ACT ded} MCG/ACT Albuterol Albuterol No 3{ml_as TID Albuterol Sulfate Sulfate _needed Sulfate (2.5 (2.5 } (2.5 MG/3ML) MG/3ML) MG/3ML) 0.083% 0.083% 0.083% Gabapentin Gabapentin No 1{table TID Gabapentin 100 MG 100 MG t} 100 MG Zestoretic Zestoretic No Zestoretic 20-12.5 MG 20-12.5 MG 20-12.5 MG Tamsulosin Tamsulosin No Tamsulosin HCl 0.4 MG HCl 0.4 MG HCl 0.4 MG Aspir-81 81 Aspir-81 81 No 1{table QD Aspir-81 MG MG t} 81 MG Symbicort Symbicort No 2{puffs BID Symbicort 160-4.5 160-4.5 } 160-4.5 MCG/ACT MCG/ACT MCG/ACT Zestoretic Zestoretic No Zestoretic 20-12.5 MG 20-12.5 MG 20-12.5 MG Nystatin Nystatin No 1{appli BID Nystatin 539018 393879 cation_ 548620 UNIT/GM UNIT/GM to_affe UNIT/GM cted_ar ea} Albuterol Albuterol No 3{ml_as TID Albuterol Sulfate Sulfate _needed Sulfate (2.5 (2.5 } (2.5 MG/3ML) MG/3ML) MG/3ML) 0.083% 0.083% 0.083% Symbicort Symbicort No 2{puffs BID Symbicort 160-4.5 160-4.5 } 160-4.5 MCG/ACT MCG/ACT MCG/ACT Atrovent Atrovent No 2{puffs QID Atrovent HFA 17 HFA 17 } HFA 17 MCG/ACT MCG/ACT MCG/ACT Zestoretic Zestoretic No Zestoretic 20-12.5 MG 20-12.5 MG 20-12.5 MG Triamcinolo Triamcinolo No 1{appli BID Triamcinol ne ne cation_ one Acetonide Acetonide to_affe Acetonide 0.1 % 0.1 % cted_ar 0.1 % ea} Gabapentin Gabapentin No 1{table TID Gabapentin 100 100 t} 100 Gabapentin Gabapentin No 1{table TID Gabapentin 100 MG 100 MG t} 100 MG Ventolin Ventolin No 2{puffs QID Ventolin HFA 90 HFA 90 _as_nee HFA 90 MCG/ACT MCG/ACT ded} MCG/ACT Immunizations Ordered Immunization Filled Immunization Date Status Commen ts Source Name Name Moderna COVID-19 Moderna COVID-19 2021-11-14 Completed [facility] Vaccine Vaccine 12:05:00 - [facility] Moderna COVID-19 Moderna COVID-19 2021-11-14 Completed [facility] Vaccine Vaccine 12:05:00 [facility] Moderna COVID-19 Moderna COVID-19 2021-11-14 Completed [facility] m[facility] Vaccine Vaccine 12:05:00 [facility] Moderna COVID-19 Moderna COVID-19 2021-11-14 Completed [facility] m[facility] Vaccine Vaccine 12:05:00 [facility] Moderna COVID-19 Moderna COVID-19 2021-11-14 Completed [facility] m[facility] Vaccine Vaccine 12:05:00 [facility] Moderna COVID-19 Moderna COVID-19 2021-11-14 Completed [facility] Vaccine Vaccine 12:05:00 [facility] Moderna COVID-19 Moderna COVID-19 2021-11-14 Completed [facility] Vaccine Vaccine 12:05:00 [facility] Moderna COVID-19 Moderna COVID-19 2021-11-14 Completed [facility] Vaccine Vaccine 12:05:00 [facility] Moderna COVID-19 Moderna COVID-19 2021-11-14 Completed [facility] Vaccine Vaccine 12:05:00 [facility] Moderna COVID-19 Moderna COVID-19 2021-11-14 Completed [facility] m[facility] Vaccine Vaccine 12:05:00 - [facility] Moderna COVID-19 Moderna COVID-19 2021-11-14 Completed [facility] Vaccine Vaccine 12:05:00 - [facility] Moderna COVID-19 Moderna COVID-19 2021-11-14 Completed [facility] Vaccine Vaccine 12:05:00 - [facility] Moderna COVID-19 Moderna COVID-19 2021-11-14 Completed [facility] Vaccine Vaccine 12:05:00 - [facility] COVID-19 Vaccine COVID-19 Vaccine 2021-02-05 Completed [facility] (Liz) (Liz) 16:02: - [facility] COVID-19 Vaccine COVID-19 Vaccine 2021-02-05 Completed [facility] (Liz) (Liz) 16:02:00 - [facility] COVID-19 Vaccine COVID-19 Vaccine 2021-02-05 Completed [facility] (Liz) (Liz) 16:02:00 - [facility] COVID-19 Vaccine COVID-19 Vaccine 2021-02-05 Completed [facility] (Liz) (Liz) 16:02:00 - [facility] COVID-19 Vaccine COVID-19 Vaccine 2021-02-05 Completed [facility] (Liz) (Liz) 16:02:00 - [facility] COVID-19 Vaccine COVID-19 Vaccine 2021-02-05 Completed [facility] (Liz) (Liz) 16:02:00 - [facility] COVID-19 Vaccine COVID-19 Vaccine 2021-02-05 Completed [facility] (Liz) (Liz) 16:02:00 - [facility] COVID-19 Vaccine COVID-19 Vaccine 2021-02-05 Completed [facility] (Liz) (Liz) 16:02:00 - [facility] COVID-19 Vaccine COVID-19 Vaccine 2021-02-05 Completed [facility] (Liz) (Liz) 16:02:00 - [facility] COVID-19 Vaccine COVID-19 Vaccine 2021-02-05 Completed [facility] (Liz) (Liz) 16:02:00 - [facility] COVID-19 Vaccine COVID-19 Vaccine 2021-02-05 Completed [facility] (Liz) (Liz) 16:02:00 - [facility] COVID-19 Vaccine COVID-19 Vaccine 2021-02-05 Completed [facility] (Liz) (Liz) 16:02:00 - [facility] COVID-19 Vaccine COVID-19 Vaccine 2021-02-05 Completed [facility] (Liz) (Liz) 16:02:00 - [facility] Adacel (Tdap) Adacel (Tdap) 2019-11-24 Completed [facility] pirit 12:03:00 - [facility] Adacel (Tdap) Adacel (Tdap) 2019-11-24 Completed [facility] pirit 12:03:00 - [facility] Adacel (Tdap) Adacel (Tdap) 2019-11-24 Completed [facility] pirit 12:03:00 - [facility] Adacel (Tdap) Adacel (Tdap) 2019-11-24 Completed [facility] pirit 12:03:00 - [facility] Adacel (Tdap) Adacel (Tdap) 2019-11-24 Completed [facility] 12:03:00 - [facility] Adacel (Tdap) Adacel (Tdap) 2019-11-24 Completed [facility]irit 12:03:00 - [facility] Adacel (Tdap) Adacel (Tdap) 2019-11-24 Completed [facility]irit 12:03:00 - [facility] Adacel (Tdap) Adacel (Tdap) 2019-11-24 Completed [facility]irit 12:03:00 - [facility] Adacel (Tdap) Adacel (Tdap) 2019-11-24 Completed [facility]irit 12:03:00 - [facility] Adacel (Tdap) Adacel (Tdap) 2019-11-24 Completed Common [facility] pirit 12:03:[address] - [facility] Adacel (Tdap) Adacel (Tdap) 2019-11-24 Completed Common S pirit 12:03:00 - [facility] Adacel (Tdap) Adacel (Tdap) 2019-11-24 Completed [facility] 12:03:00 - [facility] Adacel (Tdap) Adacel (Tdap) 2019-11-24 Completed [facility] 12:03:00 - [facility] Vital Signs Vital Name Observation Time Observation Value Comments Source height 2022-11-04 14:20:00 72 [in_i] [facility] weight 2022-11-04 14:20:00 255.4 [lb_av] [facility] temperature 2022-11-04 14:20:00 97.2 [degF] [facility] bmi 2022-11-04 14:20:00 34.63 kg/m2 [facility] oximetry 2022-11-04 14:20:00 96 % [facility] respiratory rate 2022-11-04 14:20:00 18 /min Comm on [facility] blood pressure 2022-11-04 14:20:00 138 mm[facility]Hg[facility] systolic [facility] blood pressure 2022-11-04 14:20:00 76 mm[facility]Hg[facility] diastolic [facility] height 2022-10-04 13:00:00 72 [in_i] Common [facility] weight 2022-10-04 13:00:00 251.0 [lb_av] [facility] temperature 2022-10-04 13:00:00 98.0 [degF] [facility] bmi 2022-10-04 13:00:00 34.04 kg/m2 [facility] oximetry 2022-10-04 13:00:00 97 % [facility] respiratory rate 2022-10-04 13:00:00 16 /min Comm on [facility] blood pressure 2022-10-04 13:00:00 149 mm[Hg] [facility] blood pressure 2022-10-04 13:00:00 82 mm[Hg] [facility] height 2022-10-04 13:20:00 72 [in_i] [facility] weight 2022-10-04 13:20:00 251 [lb_av] [facility] temperature 2022-10-04 13:20:00 98 [degF] [facility] bmi 2022-10-04 13:20:00 34.04 kg/m2 [facility] oximetry 2022-10-04 13:20:00 97 % [facility] respiratory rate 2022-10-04 13:20:00 16 /min Comm on [facility] blood pressure 2022-10-04 13:20:00 122 mm[Hg] [facility] blood pressure 2022-10-04 13:20:00 78 mm[Hg] [facility] height 2022-09-04 08:15:00 72 [in_i] [facility] weight 2022-09-04 08:15:00 253.8 [lb_av] Common [facility] temperature 2022-09-04 08:15:00 98 [degF] [facility] [facility] bmi 2022-09-04 08:15:00 34.42 kg/m2 [facility] oximetry 2022-09-04 08:15:00 96 % [facility] respiratory rate 2022-09-04 08:15:00 18 /min Comm on [facility] blood pressure 2022-09-04 08:15:00 176 mm[Hg] [facility] blood pressure 2022-09-04 08:15:00 90 mm[Hg] [facility] diastolic [facility] height 2022-07-04 15:00:00 72 [in_i] [facility] weight 2022-07-04 15:00:00 248.8 [lb_av] [facility] temperature 2022-07-04 15:00:00 97.2 [degF] [facility] bmi 2022-07-04 15:00:00 33.74 kg/m2 [facility] oximetry 2022-07-04 15:00:00 97 % [facility] respiratory rate 2022-07-04 15:00:00 16 /min Comm on [facility] blood pressure 2022-07-04 15:00:00 130 mm[Hg[facility] systolic [facility] blood pressure 2022-07-04 15:00:00 73 mm[Hg] [facility] diastolic [facility] Procedures Procedure Date / Time Performed Performing Clinician Sour e XR CHEST 2 VW 2023-01-13 17:04:20 Karie Pelletier [facility] Plan of Care Planned Activity Planned Date Details Comments Source Future Scheduled 2023-06-25 Hepatitis C screening [facility] Test 17:44:18 (procedure) [code = 982740954] Future Scheduled 2023-06-25 SHINGLES VACCINES (1 Met [facility] Test 17:44:18 of 2) [code = SHINGLES VACCINES (1 of 2)] Future Scheduled 2023-06-25 HEPATITIS B VACCINES Met [facility] Test 17:44:18 (1 of 3 - Risk 3-dose series) [code = HEPATITIS B VACCINES (1 of 3 - Risk 3-dose series)] Future Scheduled 2023-06-25 65+ PNEUMOCOCCAL [facility] Test 17:44:18 VACCINE (2 - PCV) [code = 65+ PNEUMOCOCCAL VACCINE (2 - PCV)] Future Scheduled 2023-06-25 COVID-19 VACCINE (3 - [facility] Test 17:44:18 Booster for Liz series) [code = COVID-19 VACCINE (3 - Booster for Liz series)] Future Scheduled 2023-06-25 [facility] 17:44:18 [code = INFLUENZA VACCINE] Encounters Start End Encounter Admission Attending Care Care Encounter Source Date/Time Date/Time Type Type Clinicians Facility Department ID 2023-02-28 Outpatient Nicola, STEVINLC STLMLC [id number] Common 12:44:00 Elaina [id number] [facility] 2022-12-19 Outpatient STLMLC STLMLC [id number] Common 15:31:02 [id number] [facility] 2022-12-12 Outpatient Brizuela, STLMLC STLMLC [id number] Common 10:14:03 [facility] 2022-12-03 Outpatient Brizuela, STEVINLC STLMLC [id number] Common 09:38:04 [facility] [id number] [facility] 2022-10-31 Outpatient Weinstein, Na STLMLC STLMLC [id number] 2 Common 10:28:03 [facility] 2022-10-04 Outpatient Weinstein, Na STLMLC STLMLC [id number] 2 Common 12:46:01 [facility] 2022-10-02 Outpatient Weinstein, Na STLMLC STLMLC [id number] 2 Common 10:53:02 [facility] 2022-07-15 Outpatient Weinstein, Na STLMLC STLMLC [id number] 2 Common 07:25:00 [facility] 2022-07-02 Outpatient Weinstein, Na STLMLC STLMLC [id number] 2 Common 15:03:01 [facility] 2022-06-19 Outpatient Weinstein, Na STLMLC STLMLC [id number] 2 Common 15:01:03 [facility] 2023-01-13 2023-01-13 [facility], 1.2.840.1 [id number] Methodi 10:55:59 23:59:00 Encounter Karie [id number] [place] 3.430.2.7 Hospit a .3.372438 l .8 2023-01-13 2023-01-13 Outpatient TRAV, [facility] [id number] [place] 00:00:00 00:00:[address] KAR[address] 2023-01-13 2023-01-13 Travel 1.2.840.1 [id number] Methodi 00:00:00 00:00:[address] 3.430.2.7 0.2.7.3.698 Ho spita .3.278855 084.8 l .8 2023-01-13 2023-01-13 Transcribe Trav, 1.2.840.1 [id number] Methodi 00:00:00 00:00:00 Orders Karie [address]51.1.[address] [place] 3.430.2.7 Hospit a .3.944639 l .8 2022-12-12 2022-12-12 (TEL) STLMLC STLMLC [id number] Co mmon 00:00:00 00:00:00 Spirit - [facility] 2022-12-04 2022-12-04 (TEL) STLMLC STLMLC [id number] Co mmon 00:00:00 00:00:00 [facility] 2022-12-03 2022-12-03 (TEL) STLMLC STLMLC [id number] Co mmon 00:00:00 00:00:00 Spirit - [facility] 2022-11-04 2022-11-04 OFFICE STLMLC STLMLC [id number] Co mmon 00:00:00 00:00:00 VISIT EST Spir it PT LEVEL 3 - [facility] 2022-10-04 2022-10-04 SUB ANNUAL STLMLC STLMLC [id number] Common 00:00:00 00:00:00 MCR Spirit WELLNESS - [facility] 2022-10-04 2022-10-04 OFFICE STLMLC STLMLC [id number] Co mmon 00:00:00 00:00:00 VISIT EST Spir it PT LEVEL 3 - [facility] 2022-09-04 2022-09-04 (PROC) STLMLC STLMLC [id number] Co mmon 00:00:00 00:00:00 Procedure Spir it - [facility] 2022-08-19 2022-08-19 (TEL) STLMLC STLMLC [id number] Co mmon 00:00:00 00:00:00 [facility] 2022-08-08 2022-08-08 (TEL) STLMLC STLMLC [id number] Co mmon 00:00:00 00:00:00 [facility] 2022-07-04 2022-07-04 OFFICE STLMLC STLMLC [id number] Co mmon 00:00:00 00:00:00 VISIT JACKY Gusman it PT LEVEL 3 - [facility] 2022-06-19 2022-06-19 OFFICE STLMLC STLMLC [id number] Co mmon 00:00:00 00:00:00 VISIT Jose E REEVES PT - [facility] LEVEL 4 [facility] Results This patient has no known results.
[2023-07-17 15:06] LABS: Absolute Lymphocytes (CBC) 1.2 K/uL (0.7-4.9); Hematocrit 41.7 % (39.6-49.0); Lymphocytes % 17.6 % (15.3-44.8); MCV 91.8 fL (80-100); MPV 8.4 fL (7.6-11.3); Platelets 210 thou/uL (152-406); RBC Red Blood Cell Count 4.54 M/uL (4.33-5.43)
[2023-07-17 15:27] LABS: Bilirubin Direct 0.2 mg/dL (0-0.2); Bilirubin Indirect, Calculated 0.5 mg/dL (0.2-0.8); Bilirubin Total 0.7 mg/dL (0.2-1.0); Magnesium 2.5 mg/dL (1.6-2.4); Potassium 4.7 mEq/L (3.5-5.1); Protein, Total 8.5 g/dL (6.4-8.2)
--- NOTE | 2023-07-17 15:27 | RAD REPORT ---
EXAM DESCRIPTION: Perez Single View07/17/2023 3:14 pm CLINICAL HISTORY: Chest pain COMPARISON: 2019 FINDINGS: The lungs appear clear of acute infiltrate. The heart is mildly enlarged IMPRESSION: No acute abnormalities displayed
[2023-07-17] MEDS ORDERED: ASPIRIN 81 MG CHEWABLE TABLET ONE (15:34)
--- NOTE | 2023-07-17 15:50 | ER ---
Nurse's Notes 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 Coronavirus screen: At this time, the client does not indicate any symptoms associated with coronavirus-19. Ebola Screen: No symptoms or risks identified at this time. Initial Sepsis Screen: Does the patient meet any 2 criteria? No. Patient's initial sepsis screen is negative. Does the patient have a suspected source of infection? No. Patient's initial sepsis screen is negative. Risk Assessment: Do you want to hurt yourself or someone else? Patient reports no desire to harm self or others. Onset of symptoms was July 17, 2023. 14:51 Method Of Arrival: Wheelchair hb 14:51 Acuity: ADOLFO 3 hb Historical: - Allergies: 14:52 No Known Drug Allergies; hb - Home Meds: 14:52 blood pressure medicine [Active]; hiv medicine [Active]; hb - PMHx: 14:52 Cancer; Hepatitis; HIV; Hypertension; hb - Immunization history:: Adult Immunizations unknown. - Social history:: Smoking status: unknown. Screenin:[facility] ED Fall Risk Assessment (Adult) History of falling in the last 3 months, me1 including since admission No falls in past 3 months (0 pts) Confusion or Disorientation No (0 pts) Intoxicated or Sedated No (0 pts) Impaired Gait No (0 pts) Mobility Assist Device Used No (0 pt) Altered Elimination No (0 pt) Score/Fall Risk Level 0 - 2 = Low Risk Oriented to surroundings, Maintained a safe environment, Hourly rounding (assess needs \T\ fall precautionary measures) done. Abuse screen: Denies threats or abuse. Nutritional screening: No deficits noted. Tuberculosis screening: No symptoms or risk factors identified. Assessment: 15:00 General: Appears distressed, uncomfortable, obese, Behavior is cooperative, appropriate me1 for age, anxious, restless, Reports chest pressure 10/10 that started suddenly while he was outside painting a fence. SOB associated with chest pain. Pain: Complains of pain in chest Pain does not radiate. Pain currently is 10 out of 10 on a pain scale. Quality of pain is described as heavy, pressure, Pain began suddenly, 1 hour ago. Is continuous. Neuro: Level of Consciousness is awake, alert, obeys commands, Oriented to person, place, time, situation, Appropriate for age. Cardiovascular: Capillary refill < 3 seconds Patient's skin is warm and dry. Respiratory: Airway is patent Respiratory effort is even, unlabored, Respiratory pattern is regular, symmetrical. 16:00 Reassessment: No changes from previously documented assessment. Patient and/or family me1 updated on plan of care and expected duration. Pain level reassessed. Vital Signs: 14:51 BP 142 / 83; Pulse 91; Resp 20; Temp 98.3; Pulse Ox 100% on R/A; Weight 129.27 kg; hb Height 6 ft. 0 in. ; Pain 10/10; 16:26 BP 127 / 81; Pulse 82; Resp 18; Pulse Ox 98% on R/A; me1 17:26 BP 139 / 79; Pulse 73; Resp 19; Pulse Ox 96% on R/A; me1 14:51 Body Mass Index 38.65 (129.27 kg, 182.88 cm) hb 14:51 Pain Scale: Adult hb ED Course: 14:43 Patient arrived in ED. hb 14:49 Abigail Anton [facility]-C [facility]. sb4 14:49 Danish Benites MD is Attending Physician. sb4 14:52 Triage completed. hb 14:52 Arm band placed on. hb 15:00 IV is patent, is intact. me1 15:02 Lipase Sent. me1 15:02 CPK Sent. me1 15:02 Basic Metabolic Panel Sent. me1 15:02 CBC with Diff Sent. me1 15:02 LFT's Sent. me1 15:02 Magnesium Sent. me1 15:02 NT PRO-BNP Sent. me1 15:02 Troponin HS Sent. me1 15:02 Initial lab(s) drawn, by ED staff, sent to lab. Inserted saline lock: 20 gauge in right me1 forearm, using aseptic technique. Blood collected. Patient maintains SpO2 saturation greater than 95% on room air. 15:05 Eddleman, Shellie, RN is Primary Nurse. me1 15:16 XRAY Chest (1 view) In Process Unspecified. EDMS 15:49 Giovanny Johnson MD is Hospitalizing Provider. sb4 17:13 Urinalysis w/ reflexes Sent. me1 17:28 Patient has correct armband on for positive identification. Bed in low position. Call me1 light in reach. Side rails up X 1. Provided Education on: POC. Verbalized understanding. . Client placed on continuous cardiac and pulse oximetry monitoring. NIBP monitoring applied. pvc monitor on. 17:28 No provider procedures requiring assistance completed. IV is patent, is intact. me1 Administered Medications: 15:25 Drug: Aspirin PO Chewable Tablet 324 mg Route: PO; me1 16:28 Follow up: Response: No adverse reaction me1 15:47 Drug: NS 0.9% IV 1000 ml Route: IV; Rate: 1 bolus; Site: right forearm; me1 17:12 Follow up: IV Status: Completed infusion; IV Intake: 1000ml me1 Medication: 15:00 VIS not applicable for this client. me1 Intake: 17:12 IV: 1000ml; Total: 1000ml. me1 Outcome: 15:00 Admitted to Med/surg accompanied by tech, via wheelchair, room 224, Report called to hans Nowak RN 15:00 Condition: stable 15:00 Instructed on the need for admit. 15:50 Decision to Hospitalize by Provider. sb4 18:06 Patient left the ED. sb4 Signatures: Dispatcher [employer] EDNV Karely Russell RN RN hb Brown, Sophia PA-C PA-C sb4 Shellie Persaud, RN RN nv1 Corrections: (The following items were deleted from the chart) 14:53 14:51 BP 148 / 3; Pulse 91bpm; Resp 20bpm; Pulse Ox 100% RA; Temp 98.3F; 129.27 kg; hb Height 6 ft.; BMI: 38.6; Pain 10/10, Adult; hb
--- NOTE | 2023-07-17 15:50 | EDPHYS ---
Physician Documentation [facility] Name: Kyaw Gay Jr Age: 68 yrs Sex: Male : 1955 Arrival Date: 07/17/2023 Time: 14:41 Bed 18 Private MD: ED Physician Danish Benites HPI: 07/17 17:48 This 68 yrs old Black Male presents to ER via Wheelchair with complaints of Chest Pain. sb4 17:48 Onset: The symptoms/episode began/occurred just prior to arrival. patient states that sb4 he was working outside painting all day when he started experiencing chest pain and weakness. he denies any shortness of breath, dizziness, syncope, radiation, back pain. reports compliance with medications for HIV, hypertension, hyperlipidemia but does not know what they are nor does he have a list. Historical: - Allergies: 14:52 No Known Drug Allergies; hb - Home Meds: 14:52 blood pressure medicine [Active]; hiv medicine [Active]; hb - PMHx: 14:52 Cancer; Hepatitis; HIV; Hypertension; hb - Immunization history:: Adult Immunizations unknown. - Social history:: Smoking status: unknown. ROS: 17:48 Constitutional: Negative for fever, chills, and weight loss. sb4 17:48 Cardiovascular: Positive for chest pain. 17:48 Neuro: Positive for near syncope, weakness. 17:48 All other systems are negative. Exam: 17:48 Constitutional: This is a well developed, well nourished patient who is awake, alert, sb4 and in no acute distress. Head/Face: Normocephalic, atraumatic. Eyes: Extra-ocular motions intact. Periorbital areas with no swelling, redness, or edema. Cardiovascular: Regular rate and rhythm with a normal S1 and S2. Respiratory: Lungs have equal breath sounds bilaterally, clear to auscultation and percussion. No rales, rhonchi or wheezes noted. No increased work of breathing, no retractions or nasal flaring. Abdomen/GI: Soft, non-tender, no distension. Back: No spinal tenderness. No costovertebral tenderness. Full range of motion. Skin: Warm, dry with normal turgor. Normal color with no rashes, no lesions, and no evidence of cellulitis. MS/ Extremity: Pulses equal, no cyanosis. Neurovascular intact. Full, normal range of motion. Neuro: Awake and alert, GCS 15, oriented to person, place, time, and situation. Cranial nerves II-XII grossly intact. Motor strength 5/5 in all extremities. Sensory grossly intact. Cerebellar exam normal. Normal gait. 17:48 ENT: Mouth: Oral mucosa: dry. Vital Signs: 14:51 BP 142 / 83; Pulse 91; Resp 20; Temp 98.3; Pulse Ox 100% on R/A; Weight 129.27 kg; hb Height 6 ft. 0 in. ; Pain 10/10; 16:26 BP 127 / 81; Pulse 82; Resp 18; Pulse Ox 98% on R/A; me1 17:26 BP 139 / 79; Pulse 73; Resp 19; Pulse Ox 96% on R/A; me1 14:51 Body Mass Index 38.65 (129.27 kg, 182.88 cm) hb 14:51 Pain Scale: Adult hb MDM: 14:49 Patient medically screened. sb4 17:48 Differential diagnosis: dehydration, NM, rhabdomyolysis, electrolyte abnormality, renal sb4 failure. Data reviewed: vital signs, nurses notes, lab test result(s), EKG, radiologic studies, and as a result, I will admit patient. Consideration of Admission/Observation Patient was admitted/placed on observation. Management of patient was discussed with the following: Hospitalist: Dr. Johnson. Care significantly affected by the following chronic conditions: Hypertension. Counseling: I had a detailed discussion with the patient and/or guardian regarding the historical points, exam findings, and any diagnostic results supporting the discharge/admit diagnosis, the presence of at least one elevated blood pressure reading (>120/80) during this emergency department visit, lab results, radiology results, the need for further work-up and treatment in the hospital. 07/17 14:53 Order name: Basic Metabolic Panel; Complete Time: 15:29 sb4 07/17 14:53 Order name: CBC with Diff; Complete Time: 15: sb4 07/17 14:53 Order name: LFT's; Complete Time: 15:29 sb4 07/17 14:53 Order name: Magnesium; Complete Time: 15: sb4 07/17 14:53 Order name: NT PRO-BNP; Complete Time: 15:29 sb4 07/17 14:53 Order name: Troponin HS; Complete Time: 15:29 sb4 07/17 14:53 Order name: CPK; Complete Time: 15:29 sb4 07/17 14:53 Order name: Lipase; Complete Time: 15:29 sb4 07/17 15:32 Order name: Urinalysis w/ reflexes; Complete Time: 17:48 sb4 07/17 16:23 Order name: Basic Metabolic Panel EDMS 07/17 16:23 Order name: Basic Metabolic Panel EDMS 07/17 16:23 Order name: CBC with Automated Diff EDMS 07/17 16:23 Order name: CBC with Automated Diff EDMS 07/17 16:23 Order name: Lipid Profile EDMS 07/17 16:24 Order name: Lipid Profile EDMS 07/17 16:24 Order name: Troponin High Sensitivity EDMS 07/17 16:24 Order name: Troponin High Sensitivity EDMS 07/17 16:24 Order name: Troponin High Sensitivity EDMS 07/17 16:24 Order name: Troponin High Sensitivity EDMS 07/17 14:53 Order name: XRAY Chest (1 view); Complete Time: 15:29 sb4 07/17 16:23 Order name: Echo with Doppler EDMS 07/17 16:23 Order name: Echo with Doppler EDMS 07/17 14:53 Order name: EKG; Complete Time: 14:53 sb4 07/17 16:23 Order name: CONS Physician Consult EDMS 07/17 16:23 Order name: Heart Healthy EDMS 07/17 14:53 Order name: Cardiac monitoring; Complete Time: 15:02 sb4 07/17 14:53 Order name: EKG - Nurse/Tech; Complete Time: 15:05 sb4 07/17 14:53 Order name: IV Saline Lock; Complete Time: 15:02 sb4 07/17 14:53 Order name: Labs collected and sent; Complete Time: 15:02 sb4 07/17 14:53 Order name: O2 Per Protocol; Complete Time: 15:02 sb4 07/17 14:53 Order name: O2 Sat Monitoring; Complete Time: 15:02 sb4 EC:23 Rate is 90 beats/min. Rhythm is irregular, Normal Sinus Rhythm. SD interval is normal sb4 at 174 msec. QRS interval is normal at 96 msec. QT interval is normal. T waves are Normal. No ST changes noted. Clinical impression: Abnormal EKG without significant change and LVH. Interpreted by me. Reviewed by me. Administered Medications: 15:25 Drug: Aspirin PO Chewable Tablet 324 mg Route: PO; me1 16:28 Follow up: Response: No adverse reaction me1 15:47 Drug: NS 0.9% IV 1000 ml Route: IV; Rate: 1 bolus; Site: right forearm; me1 17:12 Follow up: IV Status: Completed infusion; IV Intake: 1000ml me1 Disposition: 07/18 07:45 Co-signature as Attending Physician, Danish Benites MD I reviewed the patient's care rt provided by the Advanced Practice Provider and agree with the diagnosis and treatment plan. Disposition Summary: 07/17/23 15:50 Hospitalization Ordered Hospitalization Status: Inpatient Admission sb4 Provider: Giovanny Johnson Location: Telemetry/MedSurg (Inpatient) sb4 Condition: Fair sb4 Problem: new sb4 Symptoms: are unchanged sb4 Bed/Room Type: Standard sb4 Room Assignment: 224(07/17/23 17:06) Diagnosis - Chest pain, unspecified sb4 - Dehydration sb4 - Acute kidney failure, unspecified sb4 Forms: - Medication Reconciliation Form sb4 - SBAR form sb4 - Leadership Thank You Letter sb4 Signatures: Dispatcher [employer] Ronel Ortiz RN RN Karely Russell RN RN hb Brown, Sophia, PA-C PA-C sb4 Danish Benites MD MD rt Shellie Persaud RN RN me1 Corrections: (The following items were deleted from the chart) 07/17 15:24 15:23 Rate is 90 beats/min. Rhythm is regular, Normal Sinus Rhythm. SD interval is sb4 normal at 174 msec. QRS interval is normal at 96 msec. QT interval is normal. T waves are Normal. No ST changes noted. Clinical impression: Abnormal EKG without significant change. Interpreted by me. Reviewed by me. sb4 17: 15:50 sb4 dw
[2023-07-17] MEDS ORDERED: ACETAMINOPHEN 500 MG TAB PO PRN (16:16)
[2023-07-17 17:43] LABS: Specific Gravity 1.026 (1.005-1.030); Urine Bacteria <20 /HPF (<20); Urine Bilirubin NEGATIVE (Negative); Urine Blood Negative (Negative); Urine Clarity Clear (Clear); Urine Color Yellow (Yellow); Urine Glucose NEGATIVE (Negative); Urine Mucus 1+ /HPF (None Seen); Urine Protein TRACE (Negative); Urine RBC <5 /HPF (None Seen); Urine Urobilinogen Normal (Normal); Urine pH 5.5 (5.0-7.0)
[2023-07-17 18:07] VITALS: BMI 33.6
[2023-07-17 18:18] VITALS: O2SAT 96
--- NOTE | 2023-07-17 20:49 | CON ---
Date of Consultation: 07/17/2023 Reason For Consultation: Chest pain. History Of Present Illness: 68-year-old male, past medical history of hypertension, hepatitis, HIV, presented to the emergency room with a chest pain. Patient was painting outside the fence and he meli d the smell of the paint was very strong with the heat. He started having shortness of breath and fe lt chest discomfort. So he presented to the emergency room. At present time, he has no chest pain. Feels generally very well and no shortness of breath or orthopnea. Past Medical History: HIV, hypertension, dyslipidemia. Medications: Refer to reconciliation sheet for detailed list. Allergies: NO KNOWN DRUG ALLERGIES. Family History: No premature coronary artery disease or cancer. Social History: He does not smoke or drink. Does not use any drugs. Review of Systems: All systems were reviewed. They were negative except for mentioned in HPI. Physical Examination: Vital Signs: Reviewed. Head and Neck: Pupils are equal, reactive to light. Intact eye movements. No JVD. No cervical lym phadenopathy. Neck is supple. Thyroid is not enlarged. Lungs: Clear to auscultation bilaterally. No rhonchi, wheezing, or crackles. No accessory muscle u se. Heart: Regular rate and rhythm. No extra sounds. Abdomen: Soft, nontender. Bowel sounds positive. No organomegaly. No masses or hernia. No rigidi ty or rebound. Extremities: No edema, clubbing, or cyanosis. Intact pulses. Skin: No rash. No nodule. Neurologic: Alert, awake, oriented x3. No acute focal deficits appreciated. Investigations: Troponin is 26, BUN 19, creatinine 1.9, and hemoglobin 13.6. Assessment And Recommendations: 1.Chest pain. It is atypical pain, happened after exposure to a paint with heavy smell. We will mo nitor with serial sets of cardiac enzymes and if patient becomes chest pain-free and the enzymes are negative, then an outpatient stress test. Otherwise, if he continues to complain of chest pain, I re commend to obtain stress test in the morning tomorrow and obtain an echo. 2.Hypertension. Blood pressure is controlled. Continue current medications. 3.Dyslipidemia. Recommend Lipitor 40 mg q.h.s. SR/MODL Voice ID: [id number] Report ID: [id number]
[2023-07-17] MEDS: METOPROLOL TAR 25 MG TAB PO SCH (21:09)
[2023-07-18 03:54] LABS: Absolute Lymphocytes (CBC) 1.6 K/uL (0.7-4.9); Hematocrit 37.2 % (39.6-49.0); MCV 92.6 fL (80-100); Platelets 179 thou/uL (152-406); RBC Red Blood Cell Count 4.02 M/uL (4.33-5.43)
[2023-07-18 04:09] LABS: Potassium 3.9 mEq/L (3.5-5.1)
[2023-07-18] MEDS: METOPROLOL TAR 25 MG TAB PO SCH (08:39)
[2023-07-18] MEDS ORDERED: ASPIRIN EC 81 MG TAB PO SCH (09:00)
[2023-07-18] MEDS ORDERED: ENOXAPARIN 40 MG/0.4 ML SQ SCH (09:00)
[2023-07-18 12:04] VITALS: BP 156/74; TEMP 97.7
--- NOTE | 2023-07-18 15:23 | EKG ---
Test Date: 2023-07-17 Test Time: 15:02:31 Freight Car Inspector: MEASUREMENT RESULTS: Intervals: Rate: 90 NM: 174 QRSD: 96 QT: 362 QTc: 442 [place]: P: 62 NM: 174 QRS: 2 T: 228 INTERPRETIVE STATEMENTS: Normal sinus rhythm Left ventricular hypertrophy with repolarization abnormality Abnormal ECG Compared to ECG 12/30/2019 05:39:03 No significant changes Electronically Signed On 07-18-23 15:21:18 CDT by Vahe Orellana
--- NOTE | 2023-07-18 15:47 | P.HP ---
Certification for Inpatient Patient admitted to: Observation With expected LOS: <2 Midnights Patient will require the following post-hospital care: None Practitioner: I am a practitioner with admitting privileges, knowledge of patient current condition, hospital course, and medical plan of care. Services: Services provided to patient in accordance with Admission requirements found in Title 42 Section 412.3 of the Code of Federal Regulations Patient History Date of Service: 07/17/23 Reason for admission: Chest pain rule out acute coronary syndrome History of Present Illness: Patient is a 68-year-old gentleman came to the hospital with chest discomfort. Pain was mainly the sternal region with no radiation. Patient denies any diaphoresis or shortness of breath. Patient denies any nausea or vomiting. Patient has a history of hypertension but denies any other heart disease. Patient will be admitted to the hospital for further work-up. Allergies No Known Drug Allergies Allergy (Verified 07/07/17 08:14) Unknown No Known Allergies Allergy (Uncoded 10/06/17 11:40) Unknown Home Medications: Aspirin [Aspirin EC 81 MG] 81 mg PO DAILY 10/23/16 lisinopriL [Lisinopril] 10 mg PO DAILY WITH BREAKFAST 10/23/16 Atovaquone [Mepron] 750 mg PO DAILY 07/07/17 Elvitegr/Cobicist/Emtric/Tenof [Stribild Tablet] 1 each PO DAILY 07/07/17 - Past Medical/Surgical History Has patient received pneumonia vaccine in the past: No Diabetic: No -: HTN -: HEP C -: HIV -: APPEND - Family History Father Family History: Reviewed- Non-Contributory - Social History Smoking Status: Former smoker Alcohol use: No CD- Drugs: No Caffeine use: No Place of Residence: Home Review of Systems 10-point ROS is otherwise unremarkable Physical Examination - Vital Signs Temperature: 97.7 F Blood Pressure: 156/74 Pulse: 50 Respirations: 16 Pulse Ox (%): 98 - Physical Exam General: Alert, In no apparent distress, Oriented x3 HEENT: Atraumatic, PERRLA, Mucous membr. moist/pink, EOMI, Sclerae nonicteric Neck: Supple, 2+ carotid pulse no bruit, No LAD, Without JVD or thyroid abnormality Respiratory: Clear to auscultation bilaterally, Normal air movement Cardiovascular: Regular rate/rhythm, Normal S1 S2 Gastrointestinal: Normal bowel sounds, No tenderness Musculoskeletal: No tenderness Integumentary: No rashes Neurological: Normal gait, Normal speech, Normal strength at 5/5 x4 extr, Normal tone, Normal affect Lymphatics: No axilla or inguinal lymphadenopathy Assessment & Plan - Problems (Diagnosis) (1) Chest pain, rule out acute myocardial infarction Current Visit: Yes Status: Acute (2) HIV disease Current Visit: No Status: Acute (3) History of TIAs Current Visit: No Status: Chronic - Plan -High-sensitivity troponin -Cardiology consultation -Echocardiogram and additional w/up per cardiology recommendation -Repeat EKG -Work-up for other etiologies of cardiac chest pain if troponins remain negative -Lipid profile -Skiver Machine Operator regarding modifying risk for cardiac disease Discharge Plan: Home Plan to discharge in: 24 Hours - Advance Directives Does patient have a Living Will: No Does patient have a Durable POA for Healthcare: No - Code Status/Comfort Care Code Status Assessed: Yes Code Status: Full Code Critical Care: No Time Spent Managing PTS Care (In Minutes): 35
--- NOTE | 2023-07-18 15:49 | P.DS ---
Discharge Date: 07/18/23 Disposition: ROUTINE DISCHARGE Discharge Condition: GOOD Reason for Admission: Chest pain rule out acute coronary syndrome - Problems (1) Chest pain, rule out acute myocardial infarction Current Visit: Yes Status: Acute (2) HIV disease Current Visit: No Status: Acute (3) History of TIAs Current Visit: No Status: Chronic Brief History of Present Illness: Patient is a 68-year-old gentleman came to the hospital with chest discomfort. Pain was mainly the sternal region with no radiation. Patient denies any diaphoresis or shortness of breath. Patient denies any nausea or vomiting. Patient has a history of hypertension but denies any other heart disease. Patient will be admitted to the hospital for further work-up. Hospital Course: Patient did well during hospital stay. No abnormalities with troponins or echocardiogram. At this time, patient stable for discharge with outpatient follow-up per cardiology. He may need stress test as an outpatient. Follow-up with HIV physician as well. Vital Signs/Physical Exam: Temp Pulse Resp BP Pulse Ox 97.7 F 50 16 156/74 H 98 07/18/23 15:47 07/18/23 15:47 07/18/23 15:47 07/18/23 15:47 07/18/23 15:47 General: Alert, In no apparent distress, Oriented x3 Laboratory Data at Discharge: WBC 5.70 thou/uL (4.3-10.9) 07/18/23 03:20 Hgb 12.2 g/dL (13.6-17.9) L D 07/18/23 03:20 Hct 37.2 % (39.6-49.0) L 07/18/23 03:20 Plt Count 179 thou/uL (152-406) 07/18/23 03:20 Sodium 139 mEq/L (136-145) 07/18/23 03:20 Potassium 3.9 mEq/L (3.5-5.1) D 07/18/23 03:20 BUN 17 mg/dL (7-18) 07/18/23 03:20 Creatinine 1.33 mg/dL (0.70-1.30) H 07/18/23 03:20 Glucose 110 mg/dL (74-106) H 07/18/23 03:20 Magnesium 2.5 mg/dL (1.6-2.4) H 07/17/23 14:59 Total Bilirubin 0.7 mg/dL (0.2-1.0) 07/17/23 14:59 AST 20 U/L (15-37) 07/17/23 14:59 ALT 34 U/L (16-61) 07/17/23 14:59 Alkaline Phosphatase 62 U/L (45-117) 07/17/23 14:59 Triglycerides 319 mg/dL (<150) H 07/18/23 03:20 Cholesterol 151 mg/dL (<200) 07/18/23 03:20 HDL Cholesterol 26 mg/dL (40-60) L 07/18/23 03:20 Cholesterol/HDL Ratio 5.81 07/18/23 03:20 Lipase 40 U/L (13-75) 07/17/23 14:59 Home Medications: Aspirin [Aspirin EC 81 MG] 81 mg PO DAILY 10/23/16 lisinopriL [Lisinopril] 10 mg PO DAILY WITH BREAKFAST 10/23/16 Atovaquone [Mepron] 750 mg PO DAILY 07/07/17 Elvitegr/Cobicist/Emtric/Tenof [Stribild Tablet] 1 each PO DAILY 07/07/17 Metoprolol Tartrate [Lopressor*] 25 mg PO BID #60 tab 07/18/23 predniSONE [Deltasone] 20 mg PO DAILY #5 tab 07/18/23 New Medications: Metoprolol Tartrate [Lopressor*] 25 mg PO BID #60 tab predniSONE [Deltasone] 20 mg PO DAILY #5 tab Physician Discharge Instructions: -DC IV and DC home -Follow-up with PCP in 1 to 2 weeks -Follow-up with Cardiology in 1 to 2 weeks -Please call Dr. Johnson at [phone] if any questions regarding hospital stay -Please call nursing station at [phone] if any nursing or medication questions -Return to the emergency room if symptoms worsen Followup: NONE,NONE [Primary Care Provider] - Time spent managing pt's care (in minutes): 35
--- NOTE | 2023-07-18 17:25 | PN ---
Date of Progress Note: 07/18/2023 Subjective: Seen by bedside. Doing clinically well. Does not have any chest pain or shortness of b reath anymore. Resting comfortably. Review of Systems: No chest pain, shortness of breath, orthopnea, or cough. No nausea, vomiting, or diarrhea. All othe r systems were reviewed, they were negative. Physical Examination: Vital Signs: Reviewed. Head and Neck: Pupils are equal, reactive to light. Intact eye movements. No JVD. No cervical lym phadenopathy. Neck is supple. Thyroid is not enlarged. Lungs: Clear to auscultation bilaterally. No rhonchi, wheezing, or crackles. No accessory muscle u se. Heart: Regular rate and rhythm. No extra sounds. Abdomen: Soft, nontender. Bowel sounds positive. No organomegaly. No masses or hernia. No rigidi ty or rebound. Extremities: No edema, clubbing, or cyanosis. Intact pulses. Skin: No rash. No nodule. Neurologic: Alert, awake, oriented x3. No acute focal deficits appreciated. Investigations: Cardiac enzymes are negative. BUN 17, creatinine 1.33, and hemoglobin is 12.0. Assessment And Recommendations: 1.Chest pain with negative cardiac enzymes and no further chest pain. Myocardial infarction was rul ed out. The patient can be released from Cardiology standpoint and he will come as an outpatient. W shadia will plan for stress test as an outpatient. Patient agreed to the plan. 2.Hypertension. Blood pressure is controlled. 3.Dyslipidemia. Continue statin. SR/MODL Voice ID: [id number] Report ID: [id number]
--- NOTE | 2023-07-21 06:49 | ECHO ---
HEIGHT: 6 ft 0 in WEIGHT: 248 lb 4.8 oz DATE OF STUDY: 07/18/[address]: Giovanny Johnson MD 2-DIMENSIONAL: YES M.MODE: YES DOPPLER: YES COLOR FLOW: YES TDS: PORTABLE: YES DEFINITY: BUBBLE STUDY: DIAGNOSIS: CHEST PAIN, RULE OUT ACUTE CORONARY ARTERY SYNDROME CARDIAC HISTORY: CATHERIZATION: SURGERY: PROSTHETIC VALVE: PACEMAKER: MEASUREMENTS (cm) DIASTOLIC (NORMALS) SYSTOLIC (NORMALS) IVSd 1.2 (0.6-1.2) LA Diam 4.7 (1.9-4.0) LVEF 53% LVIDd 5.7 (3.5-5.7) LVIDs 4.1 (2.0-3.5) %FS 2.7% LVPWd 1.3 (0.6-1.2) Ao Diam 3.3 (2.0-3.7) 2 DIMENSIONAL ASSESSMENT: RIGHT ATRIUM: NORMAL LEFT ATRIUM: ENLARGED RIGHT VENTRICLE: NORMAL LEFT VENTRICLE: LEFT VENTRICULAR HYPERTROPHY TRICUSPID VALVE: MILD TRICUSPID REGURGITATION MITRAL VALVE: MILD MITRAL REGURGITATION PULMONIC VALVE: MILD PULMONIC INSUFFICIENCY AORTIC VALVE: NORMAL PERICARDIAL EFFUSION: NONE AORTIC ROOT: NORMAL LEFT VENTRICULAR WALL MOTION: NORMAL DOPPLER/COLOR FLOW: SEE BELOW COMMENTS: 1. NORMAL LEFT VENTRICULAR EJECTION FRACTION 55-60% 2. GRADE I DIASTOLIC DYSFUNCTION 3. LEFT ATRIAL ENLARGEMENT 4. MILD MITRAL REGURGITATION, TRICUSPID REGURGITATION, PULMONIC INSUFFICIENCY TECHNOLOGIST: RADHA VICTORIA
== END 2023-07-18 17:03 | disposition home or self-care (01) ==
LOC: ER 14:41 → ERHOLD 16:36 → 2ND 17:12
PROVIDERS: ADMIT Hospitalist; ATTEND Hospitalist
DX: R07.9 Chest pain, unspecified (principal); Z86.73 Personal history of transient ischemic attack (TIA), and cerebral infarction without residual deficits; I10 Essential (primary) hypertension; K75.9 Inflammatory liver disease, unspecified; E78.5 Hyperlipidemia, unspecified; B20 Human immunodeficiency virus [HIV] disease
CPT/HCPCS: 93005; 93306; 85025 ×2; 81001; 80048 ×2; 36415; 83735; 82550; 80061; 80076; 84484 ×3; 83690; 83880; 71045; 96360; 99285; J1650; G0378

== ENCOUNTER 2024-09-27 02:08 | Observation (INO) | payer OTHER ==
--- NOTE | 2024-09-27 03:00 | RAD REPORT ---
EXAM: XR Chest, 1 View CLINICAL HISTORY: The patient is 69 years old and is Male; CHEST PAIN TECHNIQUE: Frontal view of the chest. COMPARISON: No relevant prior studies available. FINDINGS: Lungs: Prominent interstitial markings which may represent chronic changes and/or interstitial ed deisy. No consolidation. Pleural space: Unremarkable. No pneumothorax. Heart: Unremarkable. Mediastinum: Unremarkable. Normal mediastinal contour. Bones/joints: No acute findings. IMPRESSION: Prominent interstitial markings which may represent chronic changes and/or interstitial edema. No c onsolidation. Electronically signed by: Edenilson Palma MD 09/27/2024 02:51 AM [facility] 8 Due to temporary technical issues with the [email or web address] reporting system, reports are being nubia d by the in-house radiologist without review as a courtesy to ensure prompt reporting the interpreting radiologist is fully responsible for the content of the report. Transcribed Date/Time: 09/27/2024 3:00 AM
[2024-09-27 03:08] LABS: Absolute Eosinophils 0.1 K/uL (0-0.5); Absolute Lymphocytes (CBC) 1.4 K/uL (0.7-4.9); Absolute Monocytes 0.5 K/uL (0.1-1.3); Absolute Neutrophil 3.2 K/uL (1.8-8.0); Basophils % 0.4 % (0-1.3); Hematocrit 38.9 % (39.6-49.0); Hemoglobin 12.3 g/dL (13.6-17.9); MCH 29.6 pg (27.0-35.0); MCHC 31.6 g/dL (32.0-36.0); MCV 93.5 fL (80-100); MPV 9.1 fL (7.6-11.3); Neutrophils % 62.6 % (41.7-73.7); Nucleated Red Blood Cells % 0.1 % (0-0); Platelets 195 thou/uL (152-406); RBC Red Blood Cell Count 4.16 M/uL (4.33-5.43); Red Cell Distribution Width 14.7 % (12.1-15.2)
[2024-09-27 03:10] LABS: Protime INR 0.98
[2024-09-27 03:25] LABS: ALT/SGPT 30 U/L (16-61); Albumin 3.4 g/dL (3.4-5.0); Albumin/Globulin Ratio 0.8 (1.1-1.8); Alkaline Phosphatase 58 U/L (45-117); Anion Gap 8.2 mEq/L (5.0-15.0); BUN Blood Urea Nitrogen 19 mg/dL (7-18); Bicarbonate 26 mEq/L (21-32); Bilirubin Total 0.5 mg/dL (0.2-1.0); Globulin 4.1 g/dL (2.3-3.5); Glomerular Filtration Rate 51 ml/min (=/>90); Glucose Level 131 mg/dL (74-106); NT PRO-BNP 194 pg/mL (<125); Protein, Total 7.5 g/dL (6.4-8.2); Sodium Level 141 mEq/L (136-145); Troponin High Sensitivity 23.1 pg/mL (<58.9)
[2024-09-27 03:29] LABS: AST/SGOT 23 U/L (15-37); Bilirubin Direct < 0.2 mg/dL (0-0.2); Bilirubin Indirect, Calculated 0.3 mg/dL (0.2-0.8); Potassium 4.2 mEq/L (3.5-5.1)
[2024-09-27] MEDS ORDERED: MORPHINE 4 MG/ML SYR ONE (03:36)
[2024-09-27] MEDS ORDERED: DIAZEPAM 5 MG TABLET ONE (03:36)
[2024-09-27] MEDS: KETOROLAC 30 MG/ML INJ ONE (04:24)
--- NOTE | 2024-09-27 05:25 | RAD REPORT ---
EXAM: US Duplex Bilateral Lower Extremities Veins CLINICAL HISTORY: The patient is 69 years old and is Male; bilateral leg pain TECHNIQUE: Real-time duplex ultrasound scan of the bilateral lower extremity veins integrating B-mo de two-dimensional vascular structure, Doppler spectral analysis, color flow Doppler imaging and Impression. COMPARISON: No relevant prior studies available. FINDINGS: Right deep veins: Unremarkable. No DVT in the visualized common femoral, femoral, or popliteal veins. The veins demonstrate normal color flow, are normally compressible where visualized, with normal phasic flow and/or augmentation response. Left deep veins: Unremarkable. No DVT in the visualized common femoral, femoral, or popliteal v eins. The veins demonstrate normal color flow, are normally compressible where visualized, with normal phasic flow and/or augmentation response. Soft tissues: No acute findings. IMPRESSION: No evidence of DVT in the bilateral lower extremity veins. Electronically signed by: Edenilson Palma MD 09/27/2024 05:22 AM [facility] 8 Due to temporary technical issues with the PACS/[employer] reporting system, reports are being signed by the in-house radiologist without review as a courtesy to ensure prompt reporting the interpreting radiologist is fully responsible for the content of the report. Transcribed Date/Time: 09/27/2024 5:25 AM
--- NOTE | 2024-09-27 07:19 | EDPHYS ---
Physician Documentation [facility] Name: Kyaw Gay Jr Age: 69 yrs Sex: Male : 1955 Arrival Date: 09/27/2024 Time: 02:08 Bed 13 Private MD: ED Physician Raheem Maravilla HPI: 09/27 02:11 This 69 yrs old Black Male presents to ER via Unassigned with complaints of Chest Pain, sp4 LEFT SIDE PAIN. 06:45 This is a very pleasant 69-year-old male with history of chest pains, HIV, TIAs,. sp4 Patient reports 1 week of left-sided chest pains associated with left leg pains.. Historical: - Allergies: 02:10 No Known Allergies; ha1 02:37 No Known Allergies; rg5 - Home Meds: 02:10 hiv medicine [Active]; ha1 02:37 blood pressure medicine [Active]; rg5 - PMHx: 02:10 Cancer; Hepatitis; HIV; Hypertension; ha1 02:37 Hepatitis; HIV; Hypertension; Cancer; rg5 - Immunization history:: Adult Immunizations not up to date. - Infectious Disease History:: Denies. - Social history:: Smoking status: unknown. - Family history:: not pertinent. ROS: 06:45 Constitutional: Negative for fever, chills, and weight loss, positive for chest pain sp4 and left leg pain 06:45 All other systems are negative, Exam: 06:45 Constitutional: This is a well developed, well nourished patient who is awake, alert, sp4 and in no acute distress. Head/Face: Normocephalic, atraumatic. Eyes: Pupils equal round and reactive to light, extra-ocular motions intact. Lids and lashes normal. Conjunctiva and sclera are not injected. Cornea within normal limits. Periorbital areas with no swelling, redness, or edema. ENT: Nares patent. No nasal discharge, no septal abnormalities noted. Tympanic membranes are normal and external auditory canals are clear. Oropharynx with no redness, swelling, or masses, exudates, or evidence of obstruction, uvula midline. Mucous membranes moist. Neck: Trachea midline, no thyromegaly or masses palpated, and no cervical lymphadenopathy. Supple, full range of motion without nuchal rigidity, or vertebral point tenderness. Chest/axilla: Normal chest wall appearance and motion. Nontender with no deformity. No lesions are appreciated. Cardiovascular: Regular rate and rhythm with a normal S1 and S2. No gallops, murmurs, or rubs. Normal PMI, no JVD. No pulse deficits. Respiratory: Lungs have equal breath sounds bilaterally, clear to auscultation and percussion. No rales, rhonchi or wheezes noted. No increased work of breathing, no retractions or nasal flaring. Abdomen/GI: Soft, with normal bowel sounds. No distension or tympany. No guarding or rebound. No evidence of tenderness throughout. Back: No spinal tenderness. No costovertebral tenderness. Skin: Warm, dry with normal turgor. Normal color with no rashes, no lesions, and no evidence of cellulitis. MS/ Extremity: Pulses equal, no cyanosis. Neurovascular intact. Full, normal range of motion. Neuro: Awake and alert, GCS 15, oriented to person, place, time, and situation. Cranial nerves II-XII grossly intact. Motor strength 5/5 in all extremities. Sensory grossly intact. Psych: Awake, alert, with orientation to person, place and time. Behavior, mood, and affect are within normal limits 06:45 ECG was reviewed by the Attending Physician. EKG at 0 218 normal sinus rhythm rate 64 left ventricular hypertrophy. Vital Signs: 02:10 BP 152 / 75; Pulse 63; Resp 17; Temp 98.1(O); Pulse Ox 97% on R/A; Pain 9/10; rg5 02:10 BP 152 / 75; Pulse 64; Resp 17 S; Temp 98.1(O); Pulse Ox 97% on R/A; Weight 120.2 kg; ha1 Height 6 ft. 0 in. ; 03:13 BP 147 / 70; Pulse 68; Resp 18; Pulse Ox 97% on R/A; rg5 04:31 BP 157 / 86; Pulse 60; Resp 17; Pulse Ox 96% on R/A; rg5 05:45 BP 125 / 62; Pulse 56; Resp 18; Temp 98; Pulse Ox 98% on R/A; Pain 5/10; rg5 07:30 BP 129 / 73; Pulse 61; Resp 15; Pulse Ox 99% ; Pain 0/10; jl7 09:00 BP 140 / 94; Pulse 57; Resp 15; Pulse Ox 99% ; Pain 0/10; jl7 11:00 BP 125 / 63; Pulse 68; Resp 15; Pulse Ox 97% ; jl7 12:00 BP 130 / 74; Pulse 66; Resp 16; Pulse Ox 96% ; me1 02:10 Body Mass Index 35.94 (120.20 kg, 182.88 cm) ha1 02:10 Pain Scale: Adult rg5 05:45 Pain Scale: Adult rg5 07:30 Pain Scale: Adult jl7 09:00 Pain Scale: Adult jl7 Teddy Coma Score: 06:45 Eye Response: spontaneous(4). Motor Response: obeys commands(6). Verbal Response: sp4 oriented(5). Total: 15. MDM: 02:11 Medical Screening Exam initiated sp4 03:29 ED course: EXAM: XR Chest, 1 View CLINICAL HISTORY: The patient is 69 years old and is sp4 Male; CHEST PAIN TECHNIQUE: Frontal view of the chest. COMPARISON: No relevant prior studies available. FINDINGS: Lungs: Prominent interstitial markings which may represent chronic changes and/or interstitial edema. No consolidation. Pleural space: Unremarkable. No pneumothorax. Heart: Unremarkable. Mediastinum: Unremarkable. Normal mediastinal contour. Bones/joints: No acute findings. IMPRESSION: Prominent interstitial markings which may represent chronic changes and/or interstitial edema. No consolidation. . 06:12 ED course: EXAM: US Duplex Bilateral Lower Extremities Veins CLINICAL HISTORY: The sp4 patient is 69 years old and is Male; bilateral leg pain TECHNIQUE: Real-time duplex ultrasound scan of the bilateral lower extremity veins integrating B-mode two-dimensional vascular structure, Doppler spectral analysis, color flow Doppler imaging and Impression. COMPARISON: No relevant prior studies available. FINDINGS: Right deep veins: Unremarkable. No DVT in the visualized common femoral, femoral, or popliteal veins. The veins demonstrate normal color flow, are normally compressible where visualized, with normal phasic flow and/or augmentation response. Left deep veins: Unremarkable. No DVT in the visualized common femoral, femoral, or popliteal veins. The veins demonstrate normal color flow, are normally compressible where visualized, with normal phasic flow and/or augmentation response. Soft tissues: No acute findings. IMPRESSION: No evidence of DVT in the bilateral lower extremity veins. Electronically signed by: Edenilson Palma MD 09/27/2024 05:22 AM. ED course: EXAM: XR Chest, 1 View CLINICAL HISTORY: The patient is 69 years old and is Male; CHEST PAIN TECHNIQUE: Frontal view of the chest. COMPARISON: No relevant prior studies available. FINDINGS: Lungs: Prominent interstitial markings which may represent chronic changes and/or interstitial edema. No consolidation. Pleural space: Unremarkable. No pneumothorax. Heart: Unremarkable. Mediastinum: Unremarkable. Normal mediastinal contour. Bones/joints: No acute findings. IMPRESSION: Prominent interstitial markings which may represent chronic changes and/or interstitial edema. No consolidation. . 07:20 Differential diagnosis: acute pericarditis, anxiety, coronary artery disease chest wall sp4 pain, congestive heart failure costochondritis, esophagitis, gastritis. HEART Score: History: Moderately Suspicious (1), ECG: Non specific repolarization disturbance / LBTB / PM (1), Age: > or = 65 years (2), Risk Factors: 1 or 2 risk factors (1), Troponin: < or = 1 x Normal Limit (0), Total Score = 5. The patient was not given aspirin in the Emergency Department. Patient reports taking aspirin within the past 24 hours. Data reviewed: vital signs, nurses notes, EMS record, lab test result(s), EKG, radiologic studies, CT scan, plain films. 09/27 02:11 Order name: Basic Metabolic Panel; Complete Time: 04: 4 09/27 02:11 Order name: CBC with Diff; Complete Time: 03: 4 09/27 02:11 Order name: LFT's; Complete Time: 04:13 4 09/27 02:11 Order name: Magnesium; Complete Time: 04: 4 09/27 02:11 Order name: NT PRO-BNP; Complete Time: 04: 4 09/27 02:11 Order name: PT-INR; Complete Time: 03:29 4 09/27 02:11 Order name: Troponin HS; Complete Time: 04:13 [facility] 09/27 02:34 Order name: CRP; Complete Time: 03:29 4 09/27 02:34 Order name: Urine Drug Screen [facility] 09/27 02:34 Order name: Alcohol Level; Complete Time: 04:13 4 09/27 04:13 Order name: Troponin High Sensitivity; Complete Time: 06:52 [facility] 09/27 08:24 Order name: Basic Metabolic Panel [facility] 09/27 08:24 Order name: Basic Metabolic Panel [facility] 09/27 08:24 Order name: CBC with Automated Diff [facility] 09/27 08:24 Order name: CBC with Automated Diff [facility] 09/27 08:24 Order name: Troponin High Sensitivity [facility] 09/27 09:06 Order name: Lipid Profile [facility] 09/27 09:06 Order name: Lipid Profile [facility] 09/27 02:11 Order name: XRAY Chest (1 view) [facility] 09/27 03:26 Order name: Extrem Venous W Compression [place] US 4 09/27 07:02 Order name: CT Chest, Abdomen, Pelvis - W/Contrast 4 09/27 08:24 Order name: CONS Physician Consult [facility] 09/27 08:24 Order name: EKG Electrocardiogram [facility] 09/27 08:24 Order name: EKG Electrocardiogram [facility] 09/27 02:11 Order name: Cardiac monitoring; Complete Time: 02: 4 09/27 02:11 Order name: EKG - Nurse/Tech; Complete Time: : sp4 09/27 02:11 Order name: IV Saline Lock; Complete Time: : sp4 09/27 02:11 Order name: Labs collected and sent; Complete Time: : sp4 09/27 02:11 Order name: O2 Per Protocol; Complete Time: : sp4 09/27 02:11 Order name: O2 Sat Monitoring; Complete Time: : sp4 EC:18 Rate is 64 beats/min. Rhythm is regular, Normal Sinus Rhythm. QRS [place] is Normal. [place] sp4 interval is normal. QRS interval is normal. QT interval is normal. No Q waves. T waves are Normal. No ST changes noted. Clinical impression: No evidence of ischemia. Interpreted by me. Reviewed by me. Administered Medications: 03:41 Drug: morphine IVP or IV 4 mg IVP once over 4 mins Route: IVP; Infused Over: 4 mins; rg5 Site: right antecubital; 05:02 Follow up: Response: No adverse reaction; Pain is decreased rg5 03:42 Drug: Diazepam PO 10 mg PO once Route: PO; rg5 05:02 Follow up: Response: No adverse reaction rg5 04:30 Drug: Ketorolac IVP 30 mg IVP once Route: IVP; Site: right antecubital; rg5 06:16 Follow up: Response: No adverse reaction; Pain is decreased ha1 Disposition Summary: 09/27/24 07:19 Hospitalization Ordered Notes: Hospitalization Status: Inpatient Admission sp4 Provider: Parviz Tomlin Location: Telemetry/MedSurg (Inpatient) sp4 Condition: Stable sp4 Problem: new sp4 Symptoms: have improved sp4 Bed/Room Type: Standard sp4 Room Assignment: 220(09/27/24 11:39) bd Diagnosis - Atypical chest pain, acute left lower extremity pain, HIV disease sp4 Forms: - Medication Reconciliation Form sp4 - SBAR form sp4 - Leadership Thank You Letter sp4 Signatures: Dispatcher [employer] EDMS Elizabeth Pickard bd Parvin Darnell RN RN ha1 Raheem Maravilla MD MD sp4 Armond Anton RN RN rg5 Corrections: (The following items were deleted from the chart) 06:31 06:20 Troponin High Sensitivity+C.LAB.BRZ ordered. EDMS EDMS 07:02 07:02 Chest Abdomen Pelvis W Con+CT.RAD.BRZ ordered. EDMS EDMS 07:20 06:45 ECG was reviewed by the Attending Physician. EKG at 0 218 normal sinus rhythm sp4 rate 64 left ventricular hypertrophy. sp4 11:39 07:19 sp4 bd
--- NOTE | 2024-09-27 07:19 | ER ---
Nurse's Notes [facility] Name: Kyaw Gay Jr Age: 69 yrs Sex: Male : 1955 Arrival Date: 09/27/2024 Time: 02:08 Bed 13 Private MD: Diagnosis: Atypical chest pain, acute left lower extremity pain, HIV disease Presentation: 09/27 02:10 Chief complaint: Patient states: LEFT LEG PAIN THAT RADIATES TO LEFT SIDE OF CHEST. ha1 02:10 Coronavirus screen: Vaccine status: Patient reports being unvaccinated. Ebola Screen: ha1 No symptoms or risks identified at this time. Initial Sepsis Screen: Does the patient meet any 2 criteria? No. Patient's initial sepsis screen is negative. Does the patient have a suspected source of infection? No. Patient's initial sepsis screen is negative. Risk Assessment: Do you want to hurt yourself or someone else? Patient reports no desire to harm self or others. Onset of symptoms was September 27, 2024. 02:10 Method Of Arrival: Wheelchair ha1 02:10 Acuity: ADOLFO 2 ha1 Historical: - Allergies: 02:10 No Known Allergies; ha1 02:37 No Known Allergies; rg5 - Home Meds: 02:10 hiv medicine [Active]; ha1 02:37 blood pressure medicine [Active]; rg5 - PMHx: 02:10 Cancer; Hepatitis; HIV; Hypertension; ha1 02:37 Hepatitis; HIV; Hypertension; Cancer; rg5 - Immunization history:: Adult Immunizations not up to date. - Infectious Disease History:: Denies. - Social history:: Smoking status: unknown. - Family history:: not pertinent. Screenin:10 [facility] ED Fall Risk Assessment (Adult) History of falling in the last 3 months, rg5 including since admission No falls in past 3 months (0 pts) Confusion or Disorientation No (0 pts) Intoxicated or Sedated No (0 pts) Impaired Gait No (0 pts) Mobility Assist Device Used Yes (1 pt) Altered Elimination No (0 pt) Score/Fall Risk Level 0 - 2 = Low Risk Oriented to surroundings, Maintained a safe environment, Hourly rounding (assess needs \T\ fall precautionary measures) done. Abuse screen: Denies threats or abuse. Nutritional screening: No deficits noted. Tuberculosis screening: No symptoms or risk factors identified. Assessment: 02:10 General: Appears in no apparent distress. Behavior is calm, cooperative, appropriate rg5 for age. Pain: Complains of pain in chest and right leg Pain radiates to chest Pain currently is 9 out of 10 on a pain scale. Quality of pain is described as aching, Pain began 3 hours ago. Neuro: Level of Consciousness is awake, alert, obeys commands, Oriented to person, place, time. Cardiovascular: Reports chest pain, shortness of breath. Respiratory: Airway is patent Trachea midline Respiratory effort is even, unlabored, Respiratory pattern is regular, symmetrical. GI: Abdomen is round obese. : No signs and/or symptoms were reported regarding the genitourinary system. EENT: No deficits noted. Derm: Skin is intact, Skin is dry, Skin is normal, Skin temperature is warm. Musculoskeletal: Circulation, motion, and sensation intact. Range of motion: intact in all extremities. 03:14 Reassessment: Patient and/or family updated on plan of care and expected duration. Pain rg5 level reassessed. Patient is alert, oriented x 3, equal unlabored respirations, skin warm/dry/pink. 04:25 Reassessment: Patient and/or family updated on plan of care and expected duration. Pain rg5 level reassessed. Patient is alert, oriented x 3, equal unlabored respirations, skin warm/dry/pink. 05:15 Reassessment: Patient and/or family updated on plan of care and expected duration. Pain rg5 level reassessed. Patient is alert, oriented x 3, equal unlabored respirations, skin warm/dry/pink. Patient states feeling better. 06:01 Reassessment: Patient and/or family updated on plan of care and expected duration. Pain rg5 level reassessed. Patient is alert, oriented x 3, equal unlabored respirations, skin warm/dry/pink. Patient states feeling better. 07:00 Reassessment: Dr. Maravilla at bedside discussing results and POC. jl7 07:30 General: Appears in no apparent distress. uncomfortable, Behavior is calm, cooperative, jl7 appropriate for age. Pain: Denies pain. Neuro: Level of Consciousness is awake, alert, obeys commands, Oriented to person, place, time. Cardiovascular: Reports Non-radiating left sided CP, resolved at this time Heart tones present Patient's skin is warm and dry. Rhythm is sinus bradycardia. Respiratory: Airway is patent Respiratory effort is even, unlabored, Respiratory pattern is regular, symmetrical, Denies shortness of breath. GI: Abdomen is round Abd is non tender in right upper quadrant, left upper quadrant and left lower quadrant Abdomen is tender to palpation in right lower quadrant. Derm: Skin is pink, warm \T\ dry. 07:57 Reassessment: Jenni PLAY WRITER at bedside assessing pt and discussing POC for admission. jl7 Vital Signs: 02:10 BP 152 / 75; Pulse 63; Resp 17; Temp 98.1(O); Pulse Ox 97% on R/A; Pain 9/10; rg5 02:10 BP 152 / 75; Pulse 64; Resp 17 S; Temp 98.1(O); Pulse Ox 97% on R/A; Weight 120.2 kg; ha1 Height 6 ft. 0 in. ; 03:13 BP 147 / 70; Pulse 68; Resp 18; Pulse Ox 97% on R/A; rg5 04:31 BP 157 / 86; Pulse 60; Resp 17; Pulse Ox 96% on R/A; rg5 05:45 BP 125 / 62; Pulse 56; Resp 18; Temp 98; Pulse Ox 98% on R/A; Pain 5/10; rg5 07:30 BP 129 / 73; Pulse 61; Resp 15; Pulse Ox 99% ; Pain 0/10; jl7 09:00 BP 140 / 94; Pulse 57; Resp 15; Pulse Ox 99% ; Pain 0/10; jl7 11:00 BP 125 / 63; Pulse 68; Resp 15; Pulse Ox 97% ; jl7 12:00 BP 130 / 74; Pulse 66; Resp 16; Pulse Ox 96% ; me1 02:10 Body Mass Index 35.94 (120.20 kg, 182.88 cm) ha1 02:10 Pain Scale: Adult rg5 05:45 Pain Scale: Adult rg5 07:30 Pain Scale: Adult jl7 09:00 Pain Scale: Adult jl7 Hudson Coma Score: 06:45 Eye Response: spontaneous(4). Motor Response: obeys commands(6). Verbal Response: sp4 oriented(5). Total: 15. ED Course: 02:09 Patient arrived in ED. jj6 02:10 Patient has correct armband on for positive identification. Bed in low position. Call rg5 light in reach. Side rails up X2. Adult w/ patient. Client placed on continuous cardiac and pulse oximetry monitoring. NIBP monitoring applied. monitor worker on. Pulse ox on. 02:10 No provider procedures requiring assistance completed. Inserted saline lock: 20 gauge rg5 in right antecubital area, using aseptic technique. Blood collected. Flushed with 10 mL NS. Patient maintains SpO2 saturation greater than 95% on room air. 02:11 Armond Anton, RN is Primary Nurse. rg5 02:11 Raheem Maravilla MD is Attending Physician. sp4 02:36 XRAY Chest (1 view) In Process Unspecified. EDMS 02:37 Triage completed. ha1 04:57 Extrem Venous W Compression [place] US In Process Unspecified. EDMS 07:19 CT Chest, Abdomen, Pelvis - W/Contrast In Process Unspecified. EDMS 07:19 Parviz Tomlin is Hospitalizing Provider. sp4 07:31 Primary Nurse role handed off by Armond Anton RN jl7 07:44 Mac Sims, RN is Primary Nurse. jl7 12:19 Primary Nurse role handed off by Mac Sims RN jl7 12:54 Shellie Persaud, RN is Primary Nurse. me1 12:54 Provided Education on: Need for admit, verbalized understanding. . me1 12:55 Arm band placed on Patient placed in an exam room. me1 12:55 Patient admitted, IV remains in place. me1 Administered Medications: 03:41 Drug: morphine IVP or IV 4 mg IVP once over 4 mins Route: IVP; Infused Over: 4 mins; rg5 Site: right antecubital; 05:02 Follow up: Response: No adverse reaction; Pain is decreased rg5 03:42 Drug: Diazepam PO 10 mg PO once Route: PO; rg5 05:02 Follow up: Response: No adverse reaction rg5 04:30 Drug: Ketorolac IVP 30 mg IVP once Route: IVP; Site: right antecubital; rg5 06:16 Follow up: Response: No adverse reaction; Pain is decreased ha1 Medication: 02:10 VIS not applicable for this client. rg5 Outcome: 07:19 Decision to Hospitalize by Provider. sp4 12:55 Admitted to Med/surg accompanied by tech, via wheelchair, room 220, with chart, Report me1 called to faxed by Mac 12:55 Condition: stable 12:55 Instructed on the need for admit, 13:00 Patient left the ED. me1 Signatures: Dispatcher [employer] EDMS Mac Sims, RN RN jl7 Adriane Theodore Heidy, RN RN ha1 Raheem Maravilla MD MD sp4 Shellie Persaud RN RN me1 Armond Anton RN RN rg5
--- NOTE | 2024-09-27 08:14 | P.HP ---
Certification for Inpatient Patient admitted to: Observation With expected LOS: <2 Midnights Patient will require the following post-hospital care: None Practitioner: I am a practitioner with admitting privileges, knowledge of patient current condition, hospital course, and medical plan of care. Services: Services provided to patient in accordance with Admission requirements found in Title 42 Section 412.3 of the Code of Federal Regulations Patient History Date of Service: 09/27/24 Reason for admission: acute chest pain, left leg pain History of Present Illness: Mr. Gay is a 69-year-old gentleman with a past medical history of anal cancer, hep C, HIV, and occasional hypertension. He presented to the emergency department with a 5-day history of constant left leg pain moving up to left anterior chest and left arm. He states the pain is 10 of 10. In the emergency department he received Valium and morphine and states he just went to sleep. On awakening, he states the pain is exactly the same. EKG in the ED with a rate of 64, normal sinus rhythm with flipped T waves in II, III, aVF and V4, V5, and V6. Troponin negative x 2 at 23.1 and then 21.1, BNP 194, C-reactive protein 5.41. Chest x-ray with "prominent interstitial markings which may represent chronic changes and/or interstitial edema. No consolidation." IMPRESSION: No acute abnormalities seen in the chest, abdomen or pelvis. Diffuse hepatic parenchymal hypoattenuation is noted. CT chest/abd/pelvis Incidentally noted stable left pleural based lower lobe 1.3 cm nodule, could relate to nodular atelectasis among other etiologies. Given stability in 2020, is submitted almost certainly benign. Doppler ultrasound of bilateral lower extremities with no DVT evidence in the bilateral lower extremities. CBC with H&H of 12.3/38.9 platelets of 195. He does have some renal insufficiency creatinine of 1.46 with a GFR of 51, BUN 19. Will give gentle hydration, repeat troponin, and seek cardiology consultation. Expect dicharge later today or in am Allergies No Known Drug Allergies Allergy (Verified 07/07/17 08:14) Unknown No Known Allergies Allergy (Uncoded 10/06/17 11:40) Unknown Home medications list reviewed: Yes Home Medications: Aspirin [Aspirin EC 81 MG] 81 mg PO DAILY 10/23/16 lisinopriL [Lisinopril] 10 mg PO DAILY WITH BREAKFAST 10/23/16 Atovaquone [Mepron] 750 mg PO DAILY 07/07/17 Elvitegr/Cobicist/Emtric/Tenof [Stribild Tablet] 1 each PO DAILY 07/07/17 Metoprolol Tartrate [Lopressor*] 25 mg PO BID #60 tab 07/18/23 predniSONE [Deltasone] 20 mg PO DAILY #5 tab 07/18/23 - Past Medical/Surgical History Diabetic: No -: HTN -: HEP C -: HIV -: Anal cancer -chemo and rad -: APPENDIX Psychosocial/ Personal History: Lives alone, Daughter at bedside - Social History Smoking Status: Unknown if ever smoked Alcohol use: No CD- Drugs: No Caffeine use: No Place of Residence: Home Review of Systems 10-point ROS is otherwise unremarkable General: Malaise Eyes: As per HPI ENT: Unremarkable Respiratory: Unremarkable Cardiovascular: Unremarkable Gastrointestinal: Unremarkable (last bm 3-4 days ago) Genitourinary: Unremarkable Musculoskeletal: Unremarkable Integumentary: Unremarkable Neurological: Unremarkable Lymphatics: Unremarkable Physical Examination - Physical Exam General: Alert, In no apparent distress, Oriented x3 HEENT: Atraumatic, Normocephalic Neck: Supple Respiratory: Clear to auscultation bilaterally, Normal air movement Cardiovascular: No edema, Normal pulses, Regular rate/rhythm Capillary refill: <2 Seconds Gastrointestinal: Distended, Hepatomegaly Musculoskeletal: No clubbing, No swelling Integumentary: No rashes, No breakdown Neurological: Normal speech, Normal tone, Normal affect Lymphatics: No axilla or inguinal lymphadenopathy External genitalia: Deferred Rectal: Deferred - Studies Laboratory Data (last 24 hrs) 09/27/24 09/27/24 09/27/24 02:27 02:27 02:27 WBC 5.10 Hgb 12.3 L Hct 38.9 L Plt Count 195 PT 11.0 INR 0.98 Sodium 141 Potassium 4.2 BUN 19 H Creatinine 1.46 H Glucose 131 H Magnesium 2.0 Total Bilirubin 0.5 AST 23 ALT 30 Alkaline Phosphatase 58 Assessment and Plan - Plan Acute atypical chest pain Patient admitted with chest pain. Pain is 10/10. Pain does radiate to the left leg and shoulder. Patient denies nausea, vomiting, diaphoresis, shortness of breath, diarrhea Patient's chest pain has not improved Plan: 1. Serial troponins and EKG 2. Appreciate consultation from cardiology 3. Echocardiogram - last year "COMMENTS: 1. NORMAL LEFT VENTRICULAR EJECTION FRACTION 55-60%, 2. GRADE I DIASTOLIC DYSFUNCTION 3. LEFT ATRIAL ENLARGEMENT, 4. MILD MITRAL REGURGITATION, TRICUSPID REGURGITATION, PULMONIC INSUFFICIENCY, Dictated By: Joaquin Orellana 07/18/23 1600 4. Antiplatelet therapy, anticoagulation, statin, and O2 as needed 5. IV morphine for pain control HIV/Hep Biktarvy as directed from home meds Discharge Plan: Home Plan to discharge in: 24 Hours - Advance Directives Does patient have a Living Will: No Does patient have a Durable POA for Healthcare: No - Code Status/Comfort Care Code Status Assessed: Yes Code Status: Full Code
--- NOTE | 2024-09-27 08:16 | RAD REPORT ---
EXAM: CT CHEST, ABDOMEN AND PELVIS WITH CONTRAST CLINICAL INDICATION: Male, 69 years old. [facility] MAIN CHEST PAIN Bed Name: 13 TECHNIQUE: CT chest, abdomen and pelvis was performed, following the administration of contrast, as p er department protocol. Axial, sagittal and coronal reconstructions were obtained. One or more of the following dose reduction techniques were used: Automated exposure control, adjustment of the mA a nd/or kV according to patient size, and/or iterative reconstruction. Unless otherwise specified, incidental findings do not require dedicated imaging follow-up. COMPARISON: 10/28/2016 CT abdomen and pelvis. 01/29/2023 CT chest FINDINGS: LUNGS AND AIRWAYS: No evidence of airspace or interstitial process. Enlarging pleural-based left lowe r lobe nodule abutting the diaphragmatic pleura, measuring 1.3 cm, essentially stable since the 2022 CT chest. PLEURA: No pleural effusion. No pneumothorax. MEDIASTINUM AND LYMPH NODES: No mediastinal mass or fluid collection. Normal size mediastinal, hilar, and axillary lymph nodes. THORACIC AORTA: Normal caliber and configuration. PULMONARY ARTERIES: Normal caliber. OSSEOUS STRUCTURES AND CHEST WALL: Intact. LIVER: The liver demonstrates mild fatty infiltration. No focal lesion or biliary dilitation is seen. BILIARY SYSTEM: No suspicious abnormalities. PANCREAS: No mass, ductal dilation, or felipa-pancreatic fluid. SPLEEN: Normal size. No focal lesion. ADRENALS: Normal; no mass. KIDNEYS AND URETERS: Normal size and contour. No hydronephrosis. Exophytic left renal interpolar 1.4 cm cyst, not significantly changed. URINARY BLADDER: Normal contour. GASTROINTESTINAL TRACT: No bowel obstruction, free air, significant free fluid or abscess. APPENDIX: No inflammatory changes in region of appendix. LYMPH NODES: No lymphadenopathy. ABDOMINAL AORTA AND OTHER VESSELS: Normal caliber aorta and IVC. MUSCULOSKELETAL: No acute or suspicious osseous abnormality. Multilevel lumbar spine degenerative kimberlyn nges. IMPRESSION: No acute abnormalities seen in the chest, abdomen or pelvis. Diffuse hepatic parenchymal hypoattenuation is noted. Incidentally noted stable left pleural based lower lobe 1.3 cm nodule, could relate to nodular atelec tasis among other etiologies. Given stability in 2019, is submitted almost certainly benign. Reference: Radiology. 2017 May; 284(1):228-243
[2024-09-27] MEDS ORDERED: ONDANSETRON 4 MG/2 ML VIAL IV PRN (08:19)
[2024-09-27] MEDS: GABAPENTIN 300 MG CAP PO SCH (09:00)
[2024-09-27] MEDS: ENOXAPARIN 40 MG/0.4 ML SQ SCH (09:00)
[2024-09-27] MEDS: ASPIRIN EC 81 MG TAB PO SCH (09:00)
[2024-09-27] MEDS: HYDROCODONE/APAP 5/325 MG TAB PO PRN (10:07)
--- NOTE | 2024-09-27 12:13 | EKG ---
Test Date: 2024-09-27 Test Time: 02:18:02 Material Preparation Worker: CATARINA MEASUREMENT RESULTS: Intervals: Rate: 64 LA: 202 QRSD: 98 QT: 406 QTc: 418 Luther: P: 25 LA: 202 QRS: -5 T: 237 INTERPRETIVE STATEMENTS: Normal sinus rhythm Left ventricular hypertrophy with repolarization abnormality Abnormal ECG Compared to ECG 07/17/2023 15:02:31 No significant changes Electronically Signed On 09-27-24 12:12:46 RECRUITMENT MANAGER by Ricardo Zavala
--- NOTE | 2024-09-27 13:13 | P.CNS ---
Date of Consult: 09/27/24 Chief Complaint: acute chest pain, left leg pain History of Present Illness: Patient with PMH of HTN, HIV presented with leg pain that has been going for two weeks, calfe pain, also started having chest pain, left sided, denies any other cardiac symptoms. Allergies No Known Drug Allergies Allergy (Verified 07/07/17 08:14) Unknown Home medications list reviewed: Yes Home Medications: Aspirin [Aspirin EC 81 MG] 81 mg PO DAILY 10/23/16 lisinopriL [Lisinopril] 10 mg PO DAILY WITH BREAKFAST 10/23/16 Atovaquone [Mepron] 750 mg PO DAILY 07/07/17 Elvitegr/Cobicist/Emtric/Tenof [Stribild Tablet] 1 each PO DAILY 07/07/17 Metoprolol Tartrate [Lopressor*] 25 mg PO BID #60 tab 07/18/23 predniSONE [Deltasone] 20 mg PO DAILY #5 tab 07/18/23 - Past Medical/Surgical History Diabetic: No -: HTN -: HEP C -: HIV -: Anal cancer -chemo and rad -: APPENDIX Psychosocial/ Personal History: Lives alone, Daughter at bedside - Social History Smoking Status: Unknown if ever smoked Alcohol use: No CD- Drugs: No Caffeine use: No Place of Residence: Home Review of Systems 10-point ROS is otherwise unremarkable Physical Examination Temp Pulse Resp BP Pulse Ox 98.1 F 68 15 147/70 H 97 09/27/24 02:10 09/27/24 03:13 09/27/24 10:07 09/27/24 03:13 09/27/24 10:07 General: Alert, In no apparent distress HEENT: Atraumatic, PERRLA, Mucous membr. moist/pink, EOMI, Sclerae nonicteric Neck: Supple, 2+ carotid pulse no bruit, No LAD, Without JVD or thyroid abnormality Respiratory: Clear to auscultation bilaterally, Normal air movement Cardiovascular: Regular rate/rhythm, Normal S1 S2 Gastrointestinal: Normal bowel sounds, No tenderness Musculoskeletal: No tenderness Integumentary: No rashes Neurological: Normal gait, Normal speech, Normal tone, Normal affect Lymphatics: No axilla or inguinal lymphadenopathy Laboratory Data (last 24 hrs) 09/27/24 09/27/24 09/27/24 02:27 02:27 02:27 WBC 5.10 Hgb 12.3 L Hct 38.9 L Plt Count 195 PT 11.0 INR 0.98 Sodium 141 Potassium 4.2 BUN 19 H Creatinine 1.46 H Glucose 131 H Magnesium 2.0 Total Bilirubin 0.5 AST 23 ALT 30 Alkaline Phosphatase 58 - Problems (1) Chest pain Current Visit: Yes Status: Acute Plan: reproducible on exam, no cardiac in origin, EKG shows ST depressions inferolateral leads, Troponin x 3 echo outpatient stress test if enzymes are negative. ASA 81 mg daily Lipitor 40 mg daily (2) Hypertension Current Visit: No Status: Chronic Plan: continue to monitor. Qualifiers: Hypertension type: essential hypertension Qualified Code(s): I10 - Essential (primary) hypertension
[2024-09-27 15:05] VITALS: BMI 35.2
[2024-09-27] MEDS: NA CHLORIDE 0.9% 1,000 ML IV SCH (17:06)
[2024-09-27] MEDS: ATORVASTATIN 40 MG TAB PO SCH (20:30)
[2024-09-28 00:07] LABS: Barbiturates NEGATIVE (NEGATIVE); Benzodiazepines POSITIVE (NEGATIVE); Cocaine NEGATIVE (NEGATIVE); METHAMPHETAM NEGATIVE (NEGATIVE); Methadone NEGATIVE (NEGATIVE); Opiates POSITIVE (NEGATIVE); Phencyclidine NEGATIVE (NEGATIVE); THC Cannibis NEGATIVE (NEGATIVE)
[2024-09-28] MEDS: HYDRALAZINE HCL 20 MG/ML VIAL IV PRN (02:32)
[2024-09-28 04:45] LABS: Absolute Eosinophils 0.1 K/uL (0-0.5); Absolute Lymphocytes (CBC) 0.7 K/uL (0.7-4.9); Absolute Monocytes 0.4 K/uL (0.1-1.3); Absolute Neutrophil 3.7 K/uL (1.8-8.0); Basophils % 0.6 % (0-1.3); Eosinophils % 1.2 % (0-4.4); Hematocrit 39.3 % (39.6-49.0); Lymphocytes % 14.2 % (15.3-44.8); MCH 30.5 pg (27.0-35.0); MCHC 33.1 g/dL (32.0-36.0); MCV 91.9 fL (80-100); MPV 8.4 fL (7.6-11.3); Monocytes % 8.1 % (3.3-12.3); Neutrophils % 75.9 % (41.7-73.7); Nucleated Red Blood Cells % 0.1 % (0-0); Platelets 153 thou/uL (152-406); RBC Red Blood Cell Count 4.28 M/uL (4.33-5.43); Red Cell Distribution Width 14.4 % (12.1-15.2)
[2024-09-28 04:57] LABS: Anion Gap 8.1 mEq/L (5.0-15.0); Potassium 4.1 mEq/L (3.5-5.1)
--- NOTE | 2024-09-28 06:41 | P.DS ---
Admission Date: 09/27/24 Discharge Date: 09/28/24 Disposition: DC HOME/HOME HEALTH CARE Discharge Condition: GOOD Reason for Admission: acute chest pain, left leg pain Consultations: Dr. Zavala Brief History of Present Illness: Mr. Gay is a 69-year-old gentleman with a past medical history of anal cancer, hep C, HIV, and occasional hypertension. He presented to the emergency department with a 5-day history of constant left leg pain moving up to left anterior chest and left arm. He states the pain is 10 of 10. In the emergency department he received Valium and morphine and states he just went to sleep. On awakening, he states the pain is exactly the same. EKG in the ED with a rate of 64, normal sinus rhythm with flipped T waves in II, III, aVF and V4, V5, and V6. Troponin negative x 2 at 23.1 and then 21.1, BNP 194, C-reactive protein 5.41. Chest x-ray with "prominent interstitial markings which may represent chronic changes and/or interstitial edema. No consolidation." IMPRESSION: No acute abnormalities seen in the chest, abdomen or pelvis. Diffuse hepatic parenchymal hypoattenuation is noted. CT chest/abd/pelvis Incidentally noted stable left pleural based lower lobe 1.3 cm nodule, could relate to nodular atelectasis among other etiologies. Given stability in 2020, is submitted almost certainly benign. Doppler ultrasound of bilateral lower extremities with no DVT evidence in the bilateral lower extremities. CBC with H&H of 12.3/38.9 platelets of 195. He does have some renal insufficiency creatinine of 1.46 with a GFR of 51, BUN 19. Will give gentle hydration, repeat troponin, and seek cardiology consultation. Expect dicharge later today or in am Hospital Course: Mr. Gay did well over the course of his hospitalization. Troponin x 3 n egative. Denies chest pain. He did have some hypertension and was given hydralazine IV. He takes lisinopril 10 mg at home on an as needed basis. He was cleared by cardiology, but they would like to repeat his echo before discharge and then patient can follow-up on an outpatient basis. Vital Signs/Physical Exam: Temp Pulse Resp BP Pulse Ox 97.5 F 74 20 175/87 H 96 09/28/24 04:00 09/28/24 04:00 09/28/24 04:00 09/28/24 04:00 09/28/24 04:00 General: Alert, In no apparent distress, Oriented x3 HEENT: Atraumatic, Normocephalic Neck: Supple Respiratory: Clear to auscultation bilaterally, Normal air movement Cardiovascular: No edema, Regular rate/rhythm, Normal S1 S2 Capillary refill: <2 Seconds Gastrointestinal: Normal bowel sounds, Distended Musculoskeletal: No clubbing, No swelling, Other (Pain and giving out with ambulation of left leg, home health with PT requested) Integumentary: No rashes Neurological: Normal speech, Normal tone, Normal affect Lymphatics: No axilla or inguinal lymphadenopathy External genitalia: Deferred Rectal: Deferred Laboratory Data at Discharge: WBC 4.80 thou/uL (4.3-10.9) 09/28/24 04:08 Hgb 13.0 g/dL (13.6-17.9) L 09/28/24 04:08 Hct 39.3 % (39.6-49.0) L 09/28/24 04:08 Plt Count 153 thou/uL (152-406) 09/28/24 04:08 PT 11.0 SECONDS (9.4-12.5) 09/27/24 02:27 INR 0.98 09/27/24 02:27 Sodium 140 mEq/L (136-145) 09/28/24 04:08 Potassium 4.1 mEq/L (3.5-5.1) 09/28/24 04:08 BUN 19 mg/dL (7-18) H 09/28/24 04:08 Creatinine 1.19 mg/dL (0.70-1.30) 09/28/24 04:08 Glucose 123 mg/dL (74-106) H 09/28/24 04:08 Magnesium 2.0 mg/dL (1.6-2.4) 09/27/24 02:27 Total Bilirubin 0.5 mg/dL (0.2-1.0) 09/27/24 02:27 AST 23 U/L (15-37) 09/27/24 02:27 ALT 30 U/L (16-61) 09/27/24 02:27 Alkaline Phosphatase 58 U/L (45-117) 09/27/24 02:27 Triglycerides 206 mg/dL (<150) H 09/28/24 04:08 Cholesterol 176 mg/dL (<200) 09/28/24 04:08 HDL Cholesterol 35 mg/dL (40-60) L 09/28/24 04:08 Cholesterol/HDL Ratio 5.03 09/28/24 04:08 Home Medications: lisinopriL [Lisinopril] 10 mg PO DAILY WITH BREAKFAST 10/23/16 Bictegrav/Emtricit/Tenofov Ala [Biktarvy 50-200-25 mg Tablet] 50 mg PO DAILY 09/27/24 Ezetimibe/Rosuvastatin Calcium [Rosuvastatin-Ezetimibe 20-10Mg] 1 tab PO DAILY 09/27/24 Gabapentin 300 mg PO TID 09/27/24 Tamsulosin [Flomax*] 0.4 mg PO BID 09/27/24 Wellington-3/Dha/Epa/Fish Oil [Fish Oil EC 1,000 mg Softgel] 1 each PO DAILY #90 cap 09/28/24 New Medications: Wellington-3/Dha/Epa/Fish Oil [Fish Oil EC 1,000 mg Softgel] 1 each PO DAILY #90 cap Physician Discharge Instructions: Mr. Gay did well over the course of his hospitalization. Troponin x 3 negative. Denies chest pain. He did have some hypertension and was given hydralazine IV. He takes lisinopril 10 mg at home on an as needed basis. He was cleared by cardiology, but they would like to repeat his echo before discharge and then patient can follow-up on an outpatient basis. guest services associate is helping to set up HH with SN with PT Diet: AHA Activity: Ad brooke Followup: Ricardo Zavala MD [ACTIVE - CAN ADMIT] - 1-2 Weeks Elaina Petersen MD [Primary Care Provider] - 1-2 Weeks Physician Review: Patient Assessed, Agree with Above Assessment and Plan
[2024-09-28] MEDS: lisinopriL 10 MG TAB PO ONE (07:55)
[2024-09-28 08:27] VITALS: BP 129/68; TEMP 97.1
[2024-09-28 08:57] VITALS: O2SAT 93
--- NOTE | 2024-09-29 09:06 | ECHO ---
HEIGHT: 6 ft 0 in WEIGHT: 260 lb 0 oz DATE OF STUDY: 09/28/[address]: Jenni Martinez [employer] SERV[employer] CONSULTANT-BC 2-DIMENSIONAL: YES M.MODE: YES DOPPLER: YES COLOR FLOW: YES TDS: NO PORTABLE: YES DEFINITY: NO BUBBLE STUDY: NO DIAGNOSIS: CHEST PAIN CARDIAC HISTORY: CATHERIZATION: SURGERY: PROSTHETIC VALVE: PACEMAKER: MEASUREMENTS (cm) DIASTOLIC (NORMALS) SYSTOLIC (NORMALS) IVSd 1.3 (0.6-1.2) LA Diam 3.5 (1.9-4.0) LVEF 60-65% LVIDd 3.6 (3.5-5.7) LVIDs 2.7 (2.0-3.5) %FS 27% LVPWd 1.4 (0.6-1.2) Ao Diam 3.2 (2.0-3.7) 2 DIMENSIONAL ASSESSMENT: RIGHT ATRIUM: NORMAL LEFT ATRIUM: NORMAL RIGHT VENTRICLE: NORMAL LEFT VENTRICLE: NORMAL TRICUSPID VALVE: TRACE TRICUSPID REGURGITATION MITRAL VALVE: NORMAL PULMONIC VALVE: NORMAL AORTIC VALVE: NORMAL PERICARDIAL EFFUSION: NONE AORTIC ROOT: NORMAL LEFT VENTRICULAR WALL MOTION: NORMAL. DOPPLER/COLOR FLOW: NORMAL. COMMENTS: 1. NORMAL LEFT VENTRICULAR SYSTOLIC FUNCTION. LEFT VENTRICULAR EJECTION FRACTION 60-65%. NORMAL WALL MOTION. 2. NORMAL DIASTOLIC FUNCTION. TECHNOLOGIST: GAYATHRI WILSON
== END 2024-09-28 12:07 | disposition home health service (06) ==
LOC: ER 02:08 → ERHOLD 09:47 → 2ND 12:03
PROVIDERS: ADMIT Hospitalist; ATTEND Hospitalist
DX: R07.9 Chest pain, unspecified (principal); M79.605 Pain in left leg; B19.20 Unspecified viral hepatitis C without hepatic coma; B20 Human immunodeficiency virus [HIV] disease; I10 Essential (primary) hypertension; Z85.048 Personal history of other malignant neoplasm of rectum, rectosigmoid junction, and anus; Z86.73 Personal history of transient ischemic attack (TIA), and cerebral infarction without residual deficits
CPT/HCPCS: 93005; 93306; 85025 ×2; 80048 ×2; 36415 ×2; 83735; 85610; 80061; 80076; 84484 ×3; 83880; 80307; 86140; 71260; 74177; 71045; 93970; 82077; Q9967; J0360; J1650; J7030; 96374; 96375; 99285; G0378

== ENCOUNTER 2025-07-05 10:43 | Day surgery (SDC) | payer OTHER ==
[2025-06-24 10:58] LABS: Absolute Lymphocytes (CBC) 1.3 K/uL (0.7-4.9); Hematocrit 40.2 % (39.6-49.0); Hemoglobin 13.3 g/dL (13.6-17.9); MCH 30.7 pg (27.0-35.0); MCHC 33.1 g/dL (32.0-36.0); MCV 92.8 fL (80-100); MPV 8.7 fL (7.6-11.3); Nucleated RBC Absolute Count 0.0 (0-0); Nucleated Red Blood Cells % 0.1 % (0-0); RBC Red Blood Cell Count 4.33 M/uL (4.33-5.43); White Blood Count 5.50 thou/uL (4.3-10.9)
[2025-06-24 11:02] LABS: Urine Culture Reflex Order REFLEXED; Urine Microscopic Reflex YN NO UMIC
[2025-06-24 11:06] LABS: PT Prothrombin Time 12.9 SECONDS (10-13.0); Protime INR 1.15
--- NOTE | 2025-06-24 11:16 | RAD REPORT ---
Procedure: Chest Single View HISTORY: Preop for bladder surgery COMPARISON: 2023 FINDINGS: The lungs appear clear of acute infiltrate. No significant pleural effusion noted. The heart is mildly to moderately enlarged. IMPRESSION: No acute abnormality is displayed.
[2025-06-24 11:17] LABS: Anion Gap 6.5 mEq/L (5.0-15.0); BUN Blood Urea Nitrogen 28.0 mg/dL (7-18); Glucose Level 111.0 mg/dL (74-106); Potassium 4.5 mEq/L (3.5-5.1)
[2025-07-05] MEDS: Ringers Lactate 1,000 ML IV ONE (11:15)
[2025-07-05] MEDS ORDERED: ONDANSETRON 4 MG/2 ML VIAL ONE (11:44)
[2025-07-05] MEDS ORDERED: MIDAZOLAM HCL 2 MG/2 ML INJ ONE (11:44)
[2025-07-05] MEDS ORDERED: FENTANYL CITR 100 MCG/2 ML ONE (11:44)
[2025-07-05] MEDS ORDERED: LIDOCAINE 2% MPF 5 ML VIAL ONE (12:24)
[2025-07-05] MEDS ORDERED: CEFAZOLIN SODIUM 1 GM/VIAL ONE (12:48)
[2025-07-05] MEDS ORDERED: ROCURONIUM 50 MG/5 ML VIAL IV ONE ×2 (12:59→14:23)
[2025-07-05] MEDS ORDERED: EPHEDRINE SULF 50 MG/ML VIAL ONE (13:04)
[2025-07-05] MEDS: CEFAZOLIN SODIUM 2 GM/VIAL ONE (13:12)
[2025-07-05] MEDS: LIDOCAINE 1% MPF 30 ML VIAL ONE (13:20)
[2025-07-05] MEDS: BUPIVACAINE 0.25% PF 30 ML VIAL ONE (13:20)
[2025-07-05] MEDS ORDERED: SUGAMMADEX SODIUM 200 MG/2 ML VIAL IV ONE (13:40)
[2025-07-05] MEDS ORDERED: HYDROMORPHONE HCL 1 MG/ML INJ ONE (13:41)
[2025-07-05] MEDS: NA CHLORIDE 0.9% 1,000 ML ONE (13:56)
[2025-07-05] MEDS: TRIAMCINOLONE ACETON 40 MG/ML VIAL ONE (14:20)
[2025-07-05] MEDS: BACITRACIN OINTMENT 14 GM TUBE TOP ONE (15:15)
[2025-07-05] MEDS ORDERED: HYDROCODONE/APAP 5/325 MG TAB PO PRN (15:23)
--- NOTE | 2025-07-05 15:54 | P.OP ---
Date of Service: 07/05/25 Preoperative diagnoses: Balanitis xerotica obliterans Bulbar urethral stricture disease BPH with LUTS Postoperative diagnoses: Balanitis xerotica obliterans Bulbar urethral stricture disease approximately 1.5 cm BPH with LUTS Meatal stenosis Principal procedures: Penile block Sleeve circumcision Meatal dilation using sounds Direct vision internal urethrotomy Sequential urethral dilation over a wire Cystoscopy and intralesional Kenalog 80 mg injection Prostatic urethral lift/UroLift with 4 implants placed Complex insertion of a 20 [place] alatna tipped Caban catheter over a wire Indications for procedure: 70-year-old gentleman who presented to the urology clinic with obstructive LUTS and was found to have each of the above findings. Because of the stricture disease that would require operative management via incision and dilation relative to the underlying obstruction due to BPH, he elected to proceed with treatment of both the stricture disease and the BPH. 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 Procedure note: The patient was consented in the preoperative holding area before being transferred to the operative suite where general anesthesia was induced. He was placed supine on the procedure table, padded and secured appropriately. His genitalia was prepped with Betadine and draped in standard fashion. The case has begun using a one-to-one mixture of quarter percent Marcaine and 1% lidocaine. 10 cc of the mixture was injected in the infrapubic midline and an additional 10 cc was injected bilaterally, 10 cc on each side, in the region of the neurovascular bundles. I then marked a region circumferentially within the shaft skin at the madden of the glans and the second preputial margin approximately 1 cm in length circumferentially with the foreskin retracted. I incised the skin along those lines and divided the skin in the dorsal midline before using electrocautery to remove the affected skin from the underlying dartos tissue layers. Once the skin was removed and sent for pathologic analysis, pinpoint Bovie electrocautery was used to fulgurate any bleeding vessels within the subcutaneous and dartos areas. Irrigation was applied and then reconstruction was performed using 3-0 chromic suture dipped in bacitracin. For quadrant sutures were placed initially before the intervening tissues were reapproximated using a running horizontal mattress of the 3-0 chromic. In the end, an excellent cosmetic result was achieved. We thus transferred the patient to a stretcher while still under anesthesia, and then transferred him to the cystoscopy suite where he was transferred again to the OR bed and placed in the lithotomy position. His genitalia was then prepped with Hibiclens and draped in standard fashion. Because of some meatal stenosis noted, I utilized urethral sounds to dilate the meatus and fossa navicularis to 28 Azerbaijani. Thereafter, I utilized a 26 [place] urethrotome to gain access into the urethra and use optical visualization to navigate the urethrotome down the distal into the mid and proximal ureter where I encountered some stricture disease in the bulbar urethra. Then, using the half-mayo cold knife, I incised the stricture disease in the 12:00 dorsal position and at the 5:00 and the 7:00 ventral lateral positions. I incised this far enough and down approximately 1 to 1.5 cm stricture, and then I passed a Super Stiff wire via the opening through the prostatic urethra and into his bladder putatively. Over the wire, I utilized S dilators to sequentially dilate to 24 Azerbaij[place] the bulbar urethral stricture disease. Thereafter, I was able to navigate beyond the stricture and into the patient's bladder. There I decompressed his bladder of fluid and urine. Leaving the wire in place, I then switched to the 20 [place] UroLift sheath and a visual obturator. I navigated this through the urethra and successfully into his bladder. I decompressed the bladder fluid and urine and then switched the UroLift visual obturator for a delivery device and the first implant. This implant I targeted at the patient's left bladder neck about 1.5 cm distal to the bladder neck opening and in the high anterior lateral position at around 1:00. Angling the scope against the tissue 15 degrees and dropping my hands to elevate the tissue as much as possible anteriorly, I pulled the trigger once deploying the needle through the substance of the prostate. A second pull of the trigger did deploy the capsular tab and partially retract the needle. A third pull of the trigger did completely retract the needle and began to tension the suture. I then advanced the scope back toward the midline and 2 to 3 mm toward the bladder neck opening until the white line of the monofilament was centered in the delivery bay. At this point, I pulled the trigger a fourth time deploying the urethral end piece and tailoring the suture. I then advanced the scope back into the bladder and switched the delivery device for a new implant. This implant was then targeted at the patient's right bladder neck and the contralateral position at around 11 PM. Once the second implant was successfully placed, I then surveyed the channel using a visual obturator and there was still kissing lateral lobar hypertrophy within the mid apical portion of the gland. As a result, I placed a third implant at the patient's apex on the right side kissing the verumontanum before placing the implant. I surveyed the channel created, and there was some intrusion at the bladder neck opening from the inferior lateral left wall of the prostate. As a result, I placed a fourth implant lateralizing a slight elevation of the median bar asymmetrically on the left at the bladder neck while also simultaneously lateralizing some mid apical prostate tissue, ultimately creating a beautiful continuous anterior channel widely patent and visible from the verumontanum through and into the bladder neck. At this point, I then turned my attention back to standard cystoscopy where I then utilized a cystoscopic injection needle and 80 mg of Kenalog, and I injected approximately 0.7 cc into the dorsal incised region, an additional 0.7 cc in the left lateral 5:00 incised region, with the last 0.7 cc in the right lateral 7:00 incised region. Once this was done, I then passed the Super Stiff wire via the cystoscope and back into the patient's bladder under direct vision. I then remove the cystoscope leaving the wire in place, and I passed a 20 Azerbaij[place] alatna tip catheter over the wire into the bladder. 15 cc of sterile water was placed in the balloon and the catheter was placed to bag drainage. I then washed away the Hibiclens and applied triple antibiotic ointment around the circumcision line and the glans penis before ultimately applying a Claus and a Coban for gentle pressure dressing application. The catheter was connected to a leg bag, and the patient was taken out of the lithotomy position. He was then awakened from general anesthesia before being transferred to a stretcher. He was then transferred to the recovery room in good condition. Complications: None Discharge disposition: I would like him to keep the urethral Caban catheter for the next 5 days, and he can have a voiding trial on Friday. I discharged him with a prescription for Bactrim DS x 7 days, which should cover him through next Friday. The voiding trial should be accomplished in the urology clinic, and he should be given a dose of Cipro or Levaquin, in addition to the Bactrim prescribed, at the time of the voiding trial. Subsequent follow-up may be established in about 1 month's time unless he needs to be seen sooner with regard to the circumcision.
[2025-07-05] MEDS: NALOXONE HCL 2 MG/2 ML VIAL ONE (16:13)
[2025-07-05] MEDS ORDERED: OXYBUTYNIN ER 5 MG TAB PO ONE (16:27)
[2025-07-05] MEDS ORDERED: PHENAZOPYRIDINE 100MG TAB PO ONE (16:27)
[2025-07-05] MEDS: OXYBUTYNIN ER 5 MG TAB PO ONE (16:32)
[2025-07-05] MEDS: PHENAZOPYRIDINE 100MG TAB PO ONE (16:32)
[2025-07-05 17:32] VITALS: BP 129/74; TEMP 97.2; O2SAT 99
== END 2025-07-05 17:30 | disposition home or self-care (01) ==
LOC: OR 10:43
PROVIDERS: ATTEND Urology
PROC: 0VTTXZZ Resection of Prepuce, External Approach (ICD-10-PCS; principal; 2025-07-05 12:15)
PROC: 0T7D8ZZ Dilation of Urethra, Via Natural or Artificial Opening Endoscopic (ICD-10-PCS; 2025-07-05 12:15)
PROC: 0T7D8DZ Dilation of Urethra with Intraluminal Device, Via Natural or Artificial Opening Endoscopic (ICD-10-PCS; 2025-07-05 12:15)
DX: N40.1 Benign prostatic hyperplasia with lower urinary tract symptoms (principal); N35.112 Postinfective bulbous urethral stricture, not elsewhere classified, male; N48.0 Leukoplakia of penis
CPT/HCPCS: 54150; 52276; 52283; 52441; 52442 ×3; 93005; 87088; 85025; 87086; 80048; 36415; 85610; 88304; 85730; 81003; 71045; J2704; J1100; J2310; J3301; J2003 ×2; J2250; J3010; J1171; J2405; J7120; J7030; J0690